=== PATIENT | male | born 1945 | race Caucasian/White ===

== ENCOUNTER 2019-08-07 16:06 | Inpatient (IN) | payer MEDICARE, OTHER ==
[~2019-08-07] VITALS: Ht 177.8 cm; Wt 101.2 kg
[~2019-08-07 16:06] MED LIST: AMLO10TA4 PO; ATEN-171 PO; ATOR10TA PO; LEVO100T PO; LORA-259 PO; MULT1CAP34 PO; SAW/1TAB2 PO
--- NOTE | 2019-08-07 16:10 | NUR ---
PATIENT BIB [facility] FROM [facility] FOR FLU-LIKE SX,COUGH/CONGESTION,BODY ACHE. PATIENT A/O X 4. NO ACUTE DISTRESS. PATIENT CONNECTED TO MONITOR. WILL CONTINUE TO MONITOR ACCORDINGLY
[2019-08-07 16:57] LABS: BASOPHILS % (AUTO) 0.7 % (0.0-2.0); HEMATOCRIT 42 % (39-51); HEMOGLOBIN 14.3 g/dL (13.5-17.5); LYMPHOCYTES # (AUTO) 1.4 /CMM (0.8-4.8); LYMPHOCYTES % (AUTO) 28.9 % (20.0-44.0); MEAN CORPUSCULAR HGB CONC 34 g/dl (31.0-36.0); MEAN CORPUSCULAR VOLUME 97 fL (80-96); MONOCYTES # (AUTO) 0.6 /CMM (0.1-1.30); MONOCYTES % (AUTO) 12.9 % (2.0-12.0); NEUTROPHILS # (AUTO) 2.5 /CMM (1.8-8.9); NEUTROPHILS % (AUTO) 51.5 % (43.0-81.0); PLATELET COUNT (AUTO) 177 /CMM (150-450); RED BLOOD CELL COUNT(AUTO) 4.31 MIL/uL (4.5-6.0); WHITE BLOOD COUNT (AUTO) 4.9 K/uL (4.3-11.0)
[2019-08-07 17:16] LABS: ALANINE AMINOTRANSFERASE 25 U/L (12-78); ALBUMIN 2.8 g/dL (3.4-5.0); ALKALINE PHOSPHATASE 51 U/L (46-116); ASPARTATE AMINOTRANSFERASE 25 U/L (15-37); B-TYPE NATRIURETIC PEPTIDE 116 PG/ML (0-125); BILIRUBIN,DIRECT 0.1 mg/dL (0.0-0.2); BILIRUBIN,TOTAL 0.3 mg/dL (0.2-1.0); CALCIUM, SERUM 8.5 mg/dL (8.5-10.1); CARBON DIOXIDE 29 mmol/L (21-32); CHLORIDE 107 mmol/L (98-107); GLUCOSE 96 mg/dL (74-106); POTASSIUM 4.4 mmol/L (3.5-5.1); SODIUM SERUM 141 mmol/L (136-145); TOTAL PROTEIN, SERUM 6.5 g/dL (6.4-8.2); UREA NITROGEN, BLOOD 15 mg/dL (7-18)
[2019-08-07] MEDS ORDERED: MAGNESIUM HYDROXIDE 30 ML UDC PO PRN (18:30)
[2019-08-07] MEDS ORDERED: ACETAMINOPHEN 325 MG TABLET PO PRN (18:30)
[2019-08-07] MEDS ORDERED: HYDROCODONE/APAP 5/325MG 1 EACH TABLET PO PRN (18:30)
[2019-08-07] MEDS ORDERED: ZOLPIDEM TARTRATE 5 MG TABLET PO PRN (18:30)
[2019-08-07] MEDS ORDERED: MAG HYDROX/AL HYDROX/SIMETH 30 ML UDC PO PRN (18:30)
[2019-08-07] MEDS ORDERED: AZITHROMYCIN 500 MG in IV D5W 250 ML IV ONE (18:30)
[2019-08-07] MEDS ORDERED: ONDANSETRON HCL/PF 4 MG/2 ML VIAL IVP PRN (18:30)
[2019-08-07] MEDS ORDERED: CEFTRIAXONE 1 G in IV D5W 50 ML IV ONE (18:30)
[2019-08-07] MEDS ORDERED: Z GUARD REMEDY 2 OZ OINT TP PRN (18:30)
--- NOTE | 2019-08-07 18:40 | NUR ---
CALLED NURSING SUP FOR MED SURG BED.
--- NOTE | 2019-08-07 18:49 | NUR ---
PATIENT RESTING COMFORTABLY ON BED. NO ACUTE DISTRESS. WILL CONTINUE TO MONITIOR
--- NOTE | 2019-08-07 20:00 | NUR ---
NURSING SUP GAVE M/S BED 308-2.
--- NOTE | 2019-08-07 20:12 | NUR ---
REPORT GIVEN TO NILESH ON THIRD FLOOR FOR NAKIA
[2019-08-07 21:07] VITALS: BP 128/67
[2019-08-07] MEDS ORDERED: FEE PK DOSING 1 MIN EA MC ONE (21:17)
--- NOTE | 2019-08-07 21:17 | NUR ---
PT WAS TRANSFERRED TO [facility] IN STABLE CONDITION.
[2019-08-07] MEDS ORDERED: VANCOMYCIN 1 GM VIAL ONE ×2 (21:59→22:01)
[2019-08-07] MEDS ORDERED: VANCOMYCIN HCL 1.25 GM in IV D5W 260 ML IV ONE (22:00)
--- NOTE | 2019-08-07 22:00 | NUR ---
IV VANCOMYCIN OBTAINED WITH CHARGE NURSE, WAS ABLE TO FIND THE MEDICATION DOSE AT A LATER TIME JUST AFTER IT WAS ADMINISTERED.
--- NOTE | 2019-08-07 22:06 | NUR ---
MS/RN NOTES IV SITE ON LEFT AC GAUGE 18
--- NOTE | 2019-08-07 22:57 | NUR ---
MS/RN NEW ADMISSION NOTES RECEIVED PATIENT ON A GURNEY ACCOMPANIED BY ER NURSE, PATIENT ALERT, ORIENTED X2, CAN VERBALIZE NEEDS, AND FOLLOW SIMPLE COMMANDS, COOPERATIVE TO CARE. RESPIRATIONS EVEN AND UNLABORED, REPORTED USES WHEELCHAIR AND LIVE IN A SENIOR LIVING, BROTHER IS IN CHARGE PRIMARY DECISION MAKER, WITH POLST OBTAINED FROM SNF DNR WITH SELECTIVE TREATMENT, TO INFORM MD AND FOLLOW UP. PATIENT CHEST XRAY CONFIRMATION FOR PNA. SKIN INTACT , BELONGINGS RECEIVED WITH ONLY CLOTHING AND SHOES. DO NOT SERA EYE GLASS BUT HAS PARTIAL DENTURES. IV ANTIBIOTIC THERAPY ORDER. ADMITING MD SHELL SAWANT. WILL MONITOR, ROOM ORIENTATION PROVIDED, BROTHER CONTACTED MADE AWARE REGARDING PATIENT. BED LOCKED, CALL LIGHTS WITHIN REACH, PROVIDED FLUIDS AND SNACKS.
[2019-08-08] MEDS: PIPERACILLIN /TAZOBACTAM 3.375 G in IV D5W 50 ML IV SCH ×5 (03:15→23:20)
[2019-08-08] MEDS: IV NS 0.9% 1,000 ML IV PRN ×2 (03:42→21:18)
--- NOTE | 2019-08-08 06:46 | NUR ---
MS/RN NOTES PATIENT AWAKE, ABLE TO SLEEP FEW HOURS, WATCHING TV AND IV ANTIBIOTIC TO BE INFUSED. KEPT COMFORTABLE. BED LOCKED, CALL LIGHTS WITHIN REACH, RESPIRATIONS EVEN AND UNLABORED, WILL ENDORSE TO AM RN FOR NAKIA.IV ANTIBIOTIC ZOSYN TO BE ADMINISTERED AT A LATER TIME FOR PROPER DOSING WILL FOLLOW UP WITH AM RN .
[2019-08-08 06:48] LABS: THYROID STIMULATING HORMONE 4.853 uIU/mL (0.358-3.74)
[2019-08-08 06:59] LABS: CALCIUM, SERUM 8.2 mg/dL (8.5-10.1); CREATININE 0.8 mg/dL (0.6-1.3); MAGNESIUM 1.8 mg/dL (1.8-2.4); PHOSPHORUS 3.4 mg/dL (2.5-4.9); POTASSIUM 4.4 mmol/L (3.5-5.1)
[2019-08-08 07:04] LABS: BASOPHILS % (AUTO) 0.3 % (0.0-2.0); EOSINOPHILS % (AUTO) 11.8 % (0.0-6.0); HEMATOCRIT 41 % (39-51); HEMOGLOBIN 13.7 g/dL (13.5-17.5); LYMPHOCYTES # (AUTO) 1.3 /CMM (0.8-4.8); LYMPHOCYTES % (AUTO) 27.2 % (20.0-44.0); MEAN CORPUSCULAR HGB CONC 34 g/dl (31.0-36.0); MEAN CORPUSCULAR VOLUME 97 fL (80-96); MONOCYTES # (AUTO) 0.5 /CMM (0.1-1.30); MONOCYTES % (AUTO) 9.8 % (2.0-12.0); NEUTROPHILS # (AUTO) 2.4 /CMM (1.8-8.9); NEUTROPHILS % (AUTO) 50.9 % (43.0-81.0); PLATELET COUNT (AUTO) 157 /CMM (150-450); RED BLOOD CELL COUNT(AUTO) 4.23 MIL/uL (4.5-6.0); WHITE BLOOD COUNT (AUTO) 4.7 K/uL (4.3-11.0)
--- NOTE | 2019-08-08 07:23 | NUR ---
M/S RN NOTES PATIENT RECEIVED RESTING IN BED. APPEARS TO BE IN NO DISTRESS AND NO CURRENT COMPLAINTS OF PAIN OR N/V. SAFETY PRECAUTIONS ON WITH BED IN LOWEST POSITION, RAILS UP x2, AND CALL LIGHT WITHIN REACH. HAS A L AC#18 IV INFUSING WITH ZOSYN CURRENTLY. WILL CONTINUE TO MONITOR.
[2019-08-08] MEDS ORDERED: LEVOTHYROXINE SODIUM 100 MCG TABLET PO SCH (07:30)
[2019-08-08 08:00] VITALS: BP 127/70
[2019-08-08] MEDS: AMLODIPINE BESYLATE 10 MG TABLET PO SCH (08:45)
[2019-08-08] MEDS: MULTIVITAMINS,THERAGRAN 1 UDTAB TABLET PO SCH (08:45)
[2019-08-08] MEDS: ATENOLOL 50 MG TABLET PO SCH (08:45)
[2019-08-08] MEDS: ATORVASTATIN 10 MG TABLET PO SCH (08:46)
[2019-08-08] MEDS ORDERED: VANCOMYCIN HCL 1.25 GM in IV D5W 260 ML IV SCH (10:00)
[2019-08-08] MEDS ORDERED: DIVA500T2 PO (14:31)
--- NOTE | 2019-08-08 14:34 | NUR ---
M/S RN NOTES MEDICATIONS FROM FACILITY ENTERED INTO EMAR. VERIFIED BY DR. GOFF AND FAXED TO PHARMACY.
[2019-08-08] MEDS ORDERED: BENZ2AMP3 PO (14:42)
[2019-08-08] MEDS ORDERED: BISA10SU61 RC (14:42)
[2019-08-08] MEDS ORDERED: MAGN400O6 PO (14:42)
[2019-08-08] MEDS ORDERED: NA P133E RC (14:42)
[2019-08-08] MEDS ORDERED: PALI117D IM (14:42)
[2019-08-08] MEDS ORDERED: DOCU-141 PO (14:42)
[2019-08-08] MEDS ORDERED: HALO5TAB8 PO (14:42)
[2019-08-08] MEDS ORDERED: NA PHOS,M-B/NA PHOS,DI-BA 1 EA ENEMA RC PRN (15:30)
[2019-08-08] MEDS ORDERED: BISACODYL SUPP (10 MG) 10 MG/SUPP.RECT SUPP.RECT RC PRN (15:30)
[2019-08-08 16:00] VITALS: BP 107/65
[2019-08-08] MEDS: HALOPERIDOL 5 MG TABLET PO SCH (17:06)
[2019-08-08] MEDS: BENZTROPINE MESYLATE (1 MG) 1 MG TABLET PO SCH (17:06)
[2019-08-08] MEDS: DIVALPROEX SODIUM 500 MG TABLET.DR PO SCH (17:06)
--- NOTE | 2019-08-08 18:04 | NUR ---
M/S RN NOTES PATIENT IS CURRENTLY RESTING IN BED A/O x2, ABLE TO MAKE NEEDS KNOWN. ABLE TO FOLLOW COMMANDS, SPEAKS GREEK BUT A LITTLE MUFFLED. APPEARS TO BE IN NO DISTRESS AND NO CURRENT COMPLAINTS OF PAIN. IV INFUSING ON HIS LEFT AC #18 . SAFETY PRECAUTIONS ON WITH BED IN LOWEST POSITION, BED RAILS UP x2, AND CALL LIGHT WITHIN REACH. WILL CONTINUE TO MONITOR AND ENDORSE TO ONCOMING SHIFT ABOUT NAKIA.
--- NOTE | 2019-08-08 19:53 | NUR ---
MS RN OPENING NOTE RECEIVED PATIENT IN BED. A//O X2. TOLERATING ROOM AIR. RESPIRATION ARE EVEN AND UNLABORED. NO SOB NOTED. DENIES PAIN AT THIS TIME. IN NO APPARENT DISTRESS. IV ACCESS IN LAC#18 RUNNING NS@75ML/HR. BED IS LOW AND LOCKED, HOB ELEVATED 30 DEGREES, SIDE RAILS UP X2, BED ALARM ON. CALL LIGHT WITHIN REACH. WILL CONTINUE TO MONITOR.
[2019-08-08 20:00] VITALS: BP 123/82
--- NOTE | 2019-08-08 20:43 | NUR ---
MS RN NOTE PATIENT 1999 VITALS SHOW 91% O2 SAT. ASKED PATIENT IF HE WAS SOB, HE STATED YES. INFORMED HIM IM GOING TO PLACE HIM ON OXYGEN. PATIENT WAS PLACED ON OXYGEN 2L/MIN VIA NASAL CANNULA, NEW IO2 SAT IS 94%. WILL CONTINUE TO MONITOR.
[2019-08-08 20:45] VITALS: BP 123/82
[2019-08-08] MEDS: VANCOMYCIN 1.25 GM in IV D5W 250 ML IV SCH (21:18)
--- NOTE | 2019-08-09 04:26 | NUR ---
MS RN NOTE STOPPED IVF D/T PATIENT SOUNDING CONGESTED. WILL CONTINUE TO MONITOR.
[2019-08-09] MEDS: PIPERACILLIN /TAZOBACTAM 3.375 G in IV D5W 50 ML IV SCH ×3 (05:05→17:44)
--- NOTE | 2019-08-09 06:26 | NUR ---
MS RN CLOSING NOTE PATIENT IN BED. A/O X2. ON OXYGEN AT 2L/MIN VIA NASAL CANULA. RESPIRATION ARE EVEN AND UNLABORED. NO SOB NOTED. NO C/O PAIN. NO DISTRESS NOTED. IV ACCESS MAINTAINED IN LAC#18 RUNNING NS@75ML/HR. BED IS LOW AND LOCKED, HOB ELEVATED 15 DEGREES, SIDE RAILS UP X2, BED ALARM ON, TURNED AND REPOSITION Q2HR.. CALL LIGHT WITHIN REACH. WILL ENDORSE TO NEXT SHIFT
--- NOTE | 2019-08-09 07:35 | NUR ---
MS RN OPENING NOTES RECEIVED PT IN BED, ASLEEP, EASILY AROUSED, A/O X3. PT TOLERATING RA, WITH NO RESPIRATORY DISTRESS NOTED. PT DENIES ANY PAIN OR DISCOMFORT AT THIS TIME. PT DENIES ANY CONCERNS OR QUESTIONS AT THE MOMENT WELL. IVF NS AT 75ML/HR TO LAC G18, INTACT AND FLUID INFUSING WELL. PT KEPT COMFORTABLE. CALL LIGHT KEPT WITHIN REACH. PT'S BED IN LOWEST, LOCKED POSITION WITH SR X3. WILL CONTINUE PLAN OF CARE.
[2019-08-09 08:00] VITALS: BP 107/66
[2019-08-09] MEDS: BENZTROPINE MESYLATE (1 MG) 1 MG TABLET PO SCH ×2 (08:26→16:38)
[2019-08-09] MEDS: LEVOTHYROXINE SODIUM 100 MCG TABLET PO SCH (08:26)
[2019-08-09] MEDS: MULTIVITAMINS,THERAGRAN 1 UDTAB TABLET PO SCH (08:26)
[2019-08-09] MEDS: DIVALPROEX SODIUM 500 MG TABLET.DR PO SCH ×3 (08:26→16:38)
[2019-08-09] MEDS: HALOPERIDOL 5 MG TABLET PO SCH ×2 (08:26→16:38)
[2019-08-09] MEDS: ATORVASTATIN 10 MG TABLET PO SCH (08:27)
[2019-08-09] MEDS: ATENOLOL 50 MG TABLET PO SCH (08:34)
[2019-08-09] MEDS: AMLODIPINE BESYLATE 10 MG TABLET PO SCH (08:34)
[2019-08-09] MEDS: DOCUSATE SODIUM 100 MG CAPSULE PO SCH (08:37)
[2019-08-09] MEDS ORDERED: MAGNESIUM HYDROXIDE 30 ML UDC PO SCH (09:00)
[2019-08-09] MEDS: VANCOMYCIN 1.25 GM in IV D5W 250 ML IV SCH ×2 (10:01→22:04)
[2019-08-09 16:00] VITALS: BP 99/59
--- NOTE | 2019-08-09 18:43 | NUR ---
MS RN CLOSING NOTES PT IN BED, ASLEEP, EASILY AROUSED, A/O X3. PT TOLERATING RA, WITH NO RESPIRATORY DISTRESS NOTED. PT DENIES ANY PAIN OR DISCOMFORT AT THIS TIME. PT DENIES ANY CONCERNS OR QUESTIONS AT THE MOMENT WELL. IVF NS AT 75ML/HR TO LAC G18, INTACT AND FLUID INFUSING WELL. ALL NEEDS AND CARE ATTENDED. PT KEPT COMFORTABLE. CALL LIGHT KEPT WITHIN REACH. PT'S BED IN LOWEST, LOCKED POSITION WITH SR X3. WILL ENDORSE TO INCOMING NIGHT NURSE
--- NOTE | 2019-08-09 19:15 | NUR ---
MS RN PM OPENING NOTE BEDSIDE REPORT RECIEVED FROM CRISTINA MURDOCK. PT IN BED, EASILY AROUSED BY VOICE. PT TOLERATING RA, WITH NO RESPIRATORY DISTRESS NOTED. PT DENIES PAIN OR DISCOMFORT AT THIS TIME. IVF NS AT 75ML/HR TO LAC G18, INTACT AND FLUID INFUSING WITH NO S/S OF COMPLICATIONS. CALL LIGHT WITHIN REACH. BED IN LOWEST, LOCKED POSITION WITH SR X3. WILL CONT TO MONITOR.
[2019-08-09 20:00] VITALS: BP 127/69
[2019-08-10] MEDS: PIPERACILLIN /TAZOBACTAM 3.375 G in IV D5W 50 ML IV SCH ×3 (00:13→12:48)
--- NOTE | 2019-08-10 02:24 | NUR ---
code status order. patient was dnr/dni but no official order from md written. reached out to candice moralez for order polst on file for dnr/dni. patient alert and oriented x3 at this time and asked about if he wanted cpr pt states "No i dont want." kirt informed new orders recieved and verified with geovanny charge nurse.
[2019-08-10] MEDS: IV NS 0.9% 1,000 ML IV PRN (02:25)
[2019-08-10] MEDS: LEVOTHYROXINE SODIUM 100 MCG TABLET PO SCH (06:20)
--- NOTE | 2019-08-10 06:56 | NUR ---
MS RN PM CLOSING NOTE PT IN BED, EASILY AROUSED BY VOICE. PT TOLERATING RA, PT DENIES SOB BUT HAS MILDLY LABORED BREATHING. PATIENT HAS BEEN COUGHIN UP PHLEGM THICK DARK GREEN YELLOW. PT DENIES PAIN OR DISCOMFORT AT THIS TIME. IVF NS AT 75ML/HR TO LAC G18, INTACT AND FLUID INFUSING WITH NO S/S OF COMPLICATIONS. CALL LIGHT WITHIN REACH. BED IN LOWEST, LOCKED POSITION WITH SR X3. WILL ENDORSE TO AM SHIFT.
[2019-08-10 07:26] LABS: CALCIUM, SERUM 8.5 mg/dL (8.5-10.1); CREATININE 1.1 mg/dL (0.6-1.3); POTASSIUM 4.2 mmol/L (3.5-5.1)
[2019-08-10 08:00] VITALS: BP 142/69
[2019-08-10] MEDS: DIVALPROEX SODIUM 500 MG TABLET.DR PO SCH ×2 (09:29→14:14)
[2019-08-10] MEDS: DOCUSATE SODIUM 100 MG CAPSULE PO SCH (09:29)
[2019-08-10] MEDS: MULTIVITAMINS,THERAGRAN 1 UDTAB TABLET PO SCH (09:29)
[2019-08-10] MEDS: BENZTROPINE MESYLATE (1 MG) 1 MG TABLET PO SCH (09:29)
[2019-08-10] MEDS: ATORVASTATIN 10 MG TABLET PO SCH (09:29)
[2019-08-10] MEDS: HALOPERIDOL 5 MG TABLET PO SCH (09:30)
[2019-08-10] MEDS: AMLODIPINE BESYLATE 10 MG TABLET PO SCH (09:30)
[2019-08-10 09:31] VITALS: BP 142/69
[2019-08-10] MEDS: ATENOLOL 50 MG TABLET PO SCH (09:31)
[2019-08-10] MEDS ORDERED: PIPE3.379 IV (09:42)
--- NOTE | 2019-08-10 09:55 | NUR ---
IV LEAKING AND REMOVED. RESTART IN RT. HAND #22 ANGIO.TOLERATED WELL.
[2019-08-10] MEDS: VANCOMYCIN 1.25 GM in IV D5W 250 ML IV SCH (10:28)
--- NOTE | 2019-08-10 15:50 | NUR ---
drivers here given report .report called as well to facility-spoke to ludivina.all belongings sent with pt. hep lock left in as pt. on ongoing antibiotic.transported via amb. to facility.
[2019-08-18] MEDS ORDERED: PALIPERIDONE PALMITATE 156 MG INJ SCH (09:00)
== END 2019-08-10 16:00 | DRG 193 ==
LOC: ER 16:08 → MED 20:51
PROVIDERS: ATTEND Internal Medicine
DX: J15.9 Unspecified bacterial pneumonia (principal); G93.41 Metabolic encephalopathy; J96.01 Acute respiratory failure with hypoxia; F20.0 Paranoid schizophrenia; I10 Essential (primary) hypertension; E03.9 Hypothyroidism, unspecified; D64.9 Anemia, unspecified; E78.5 Hyperlipidemia, unspecified; F03.90 Unspecified dementia, unspecified severity, without behavioral disturbance, psychotic disturbance, mood disturbance, and anxiety; F31.9 Bipolar disorder, unspecified
CPT/HCPCS: 36415; 71045-TC; 80048-TC; 80061-TC; 80076-TC; 80202-TC; 83605-TC; 83735-TC; 83880; 84100-TC; 84443-TC; 84484-TC; 85025-TC; 85730-TC; 87040-TC; 87081-TC; 94799-TC; 97110-TC; 97116-TC; 97530-TC; G0378; J0456; J0696; J2543; J3370; J7030; J7060

== ENCOUNTER 2020-10-22 20:22 | Inpatient (IN) | payer MEDICARE, OTHER ==
[~2020-10-22] VITALS: Ht 185.4 cm; Wt 94.8 kg
[~2020-10-22 20:22] MED LIST changes: -ATEN-171 PO; +BENZ2AMP3 PO; +BISA10SU61 RC; +DIVA500T2 PO; +DOCU-141 PO; +HALO5TAB8 PO; -LORA-259 PO; +MAGN400O6 PO; -MULT1CAP34 PO; +NA P133E RC; +PALI117D IM; +PIPE3.379 IV; -SAW/1TAB2 PO
--- NOTE | 2020-10-22 20:25 | NUR ---
PT BIBPA FROM [facility] C/O FEVER AND GEN WEAKNESS X3 HRS. PT WAS GIVEN TYLENOL @1900 FOR 101 FEVER. UPON ASSESSMENT PT 98.3. PT AAOX2. PT 93% RA BREATHING EVENLY AND UNLABORED. PLACED ON 2L VIA NC 95%. PT DENIES CP. PT PLACED ON MONITOR AND POX. MADE COMFORTABLE WITH BLANKET AND CALL LIGHT WITHIN REACH. BLOOD AND BLOOD CULUTRES OBTAINED AND SENT TO THE LAB. 20G LFT AC. WILL CONTINUE TO MONITOR.
--- NOTE | 2020-10-22 20:27 | NUR ---
SPOKE WITH CLAUDE FROM [facility]. PER CLAUDE, REC'D POSITIVE COVID TEST RESULTS TODAY
--- NOTE | 2020-10-22 20:30 | NUR ---
RT AT BEDSIDE
[2020-10-22 20:54] LABS: BASOPHILS # (AUTO) 0.1 /CMM (0.0-0.2); BASOPHILS % (AUTO) 2.9 % (0.0-2.0); EOSINOPHILS % (AUTO) 0.2 % (0.0-6.0); HEMATOCRIT 41 % (39-51); LYMPHOCYTES # (AUTO) 0.4 /CMM (0.8-4.8); LYMPHOCYTES % (AUTO) 9.1 % (20.0-44.0); MEAN CORPUSCULAR HGB CONC 34 g/dl (31.0-36.0); MEAN CORPUSCULAR VOLUME 97 fL (80-96); MONOCYTES # (AUTO) 0.6 /CMM (0.1-1.30); MONOCYTES % (AUTO) 13.5 % (2.0-12.0); NEUTROPHILS # (AUTO) 3.3 /CMM (1.8-8.9); NEUTROPHILS % (AUTO) 74.3 % (43.0-81.0); PLATELET COUNT (AUTO) 159 /CMM (150-450); RED BLOOD CELL COUNT(AUTO) 4.22 MIL/uL (4.5-6.0); WHITE BLOOD COUNT (AUTO) 4.5 K/uL (4.3-11.0)
[2020-10-22 20:56] LABS: ABG BASE EXCESS -1.1 mmol/L; ABG OXYGEN SATURATION 95.6 % (92.0-98.5); ABG PH 7.428 (7.350-7.450); ABG PO2 76.2 mmHg (75.0-100.0); AaDO2 82.1 mmHg; COHb 0.3 % (0.5-1.5); MetHb 0.5 % (0.0-1.5); O2Hb 94.8 % (94.0-97.0); SITE, ABG Right Radial; VENT MODE, BG 2LNC
--- NOTE | 2020-10-22 20:59 | NUR ---
CALLED [facility] PAGED DR SHAH FOR ADMISSION
--- NOTE | 2020-10-22 21:05 | NUR ---
URINE SENT TO LAB
[2020-10-22] MEDS ORDERED: LIDOCAINE 2% JEL UROJET 10 ML MM ONE (21:14)
[2020-10-22 21:16] LABS: ALANINE AMINOTRANSFERASE 34 U/L (12-78); ALBUMIN 2.9 g/dL (3.4-5.0); ALKALINE PHOSPHATASE 72 U/L (46-116); ASPARTATE AMINOTRANSFERASE 76 U/L (15-37); B-TYPE NATRIURETIC PEPTIDE 219 PG/ML (0-125); BILIRUBIN,TOTAL 0.2 mg/dL (0.2-1.0); CALCIUM, SERUM 8.5 mg/dL (8.5-10.1); CARBON DIOXIDE 26 mmol/L (21-32); CHLORIDE 105 mmol/L (98-107); CREATININE 1.2 mg/dL (0.6-1.3); GLUCOSE 115 mg/dL (74-106); SODIUM SERUM 139 mmol/L (136-145); TOTAL PROTEIN, SERUM 6.6 g/dL (6.4-8.2); UREA NITROGEN, BLOOD 15 mg/dL (7-18)
[2020-10-22 21:29] LABS: BILIRUBIN,URINE Negative (NEGATIVE); COLOR,URINE YELLOW (YELLOW); LEUKOCYTE ESTERASE ,URINE Negative (NEGATIVE); NITRITE, URINE Negative (NEGATIVE); PH,URINE 5.5 (5.0-8.0); PROTEIN,URINE Negative (NEGATIVE); UGLUCOSE Negative (NEGATIVE)
[2020-10-22 21:52] LABS: BACTERIA,URINE Rare /HPF (None Seen); SQUAMOUS EPITHELIAL CELL,UR Few /HPF (None Seen); WBC,URINE NONE SEEN /HPF (0-3)
[2020-10-22 21:58] LABS: CREATINE KINASE, TOTAL 1957 U/L (39-308); FERRITIN 94 ng/mL (8-388)
[2020-10-22 21:59] LABS: C-REACTIVE PROTEIN 1.9 mg/dL (0.0-0.9)
[2020-10-22 22:03] LABS: D-DIMER 0.25 mg/L(FEU (0.17-0.50)
--- NOTE | 2020-10-22 22:29 | NUR ---
INFLUENZA SWAB SENT TO LAB
[2020-10-22] MEDS ORDERED: NA PHOS,M-B/NA PHOS,DI-BA 1 EA ENEMA RC PRN (23:00)
[2020-10-22] MEDS ORDERED: BISACODYL SUPP (10 MG) 10 MG/SUPP.RECT SUPP.RECT RC PRN (23:00)
[2020-10-22] MEDS ORDERED: Z GUARD REMEDY 2 OZ OINT TP PRN (23:00)
[2020-10-22] MEDS ORDERED: ACETAMINOPHEN 325 MG TABLET PO PRN (23:00)
[2020-10-22] MEDS ORDERED: MORPHINE SULFATE INJ 2 MG/ML DISP.SYRIN IV PRN (23:00)
[2020-10-22] MEDS: ENOXAPARIN SODIUM 40 MG/0.4 ML DISP.SYRIN SQ SCH (23:30)
[2020-10-22] MEDS: AZITHROMYCIN 500 MG in IV D5W 250 ML IV SCH (23:30)
[2020-10-22] MEDS ORDERED: ENOXAPARIN SODIUM 40 MG/0.4 ML DISP.SYRIN SQ ONE (23:33)
[2020-10-22] MEDS ORDERED: AZITHROMYCIN 500 MG VIAL ONE (23:33)
--- NOTE | 2020-10-23 00:15 | NUR ---
PT REPOSITIONED AND CHANGED
[2020-10-23 06:01] LABS: BASOPHILS % (AUTO) 0.4 % (0.0-2.0); EOSINOPHILS % (AUTO) 0.1 % (0.0-6.0); HEMATOCRIT 42 % (39-51); HEMOGLOBIN 14.2 g/dL (13.5-17.5); LYMPHOCYTES # (AUTO) 0.7 /CMM (0.8-4.8); LYMPHOCYTES % (AUTO) 12.9 % (20.0-44.0); MEAN CORPUSCULAR HGB CONC 34 g/dl (31.0-36.0); MEAN CORPUSCULAR VOLUME 98 fL (80-96); MONOCYTES % (AUTO) 19.3 % (2.0-12.0); NEUTROPHILS # (AUTO) 3.6 /CMM (1.8-8.9); NEUTROPHILS % (AUTO) 67.3 % (43.0-81.0); PLATELET COUNT (AUTO) 160 /CMM (150-450); RED BLOOD CELL COUNT(AUTO) 4.32 MIL/uL (4.5-6.0); WHITE BLOOD COUNT (AUTO) 5.4 K/uL (4.3-11.0)
--- NOTE | 2020-10-23 07:27 | NUR ---
GAVE REPORT TO COLLETTE STALLWORTH FOR NAKIA
[2020-10-23 07:34] LABS: ALANINE AMINOTRANSFERASE 35 U/L (12-78); ALBUMIN 2.9 g/dL (3.4-5.0); ALKALINE PHOSPHATASE 71 U/L (46-116); ASPARTATE AMINOTRANSFERASE 85 U/L (15-37); BILIRUBIN,TOTAL 0.2 mg/dL (0.2-1.0); CALCIUM, SERUM 8.9 mg/dL (8.5-10.1); CARBON DIOXIDE 25 mmol/L (21-32); CHLORIDE 104 mmol/L (98-107); CREATININE 0.8 mg/dL (0.6-1.3); GLUCOSE 95 mg/dL (74-106); MAGNESIUM 1.9 mg/dL (1.8-2.4); PHOSPHORUS 3.9 mg/dL (2.5-4.9); POTASSIUM 4.4 mmol/L (3.5-5.1); SODIUM SERUM 140 mmol/L (136-145); TOTAL PROTEIN, SERUM 6.7 g/dL (6.4-8.2); UREA NITROGEN, BLOOD 13 mg/dL (7-18)
[2020-10-23 07:58] LABS: CHOLESTEROL 137 mg/dL (<200); CREATINE KINASE, TOTAL 1813 U/L (39-308); FERRITIN 108 ng/mL (8-388); HDL CHOLESTEROL 48 mg/dL (40-60); LDL 80 mg/dL (0-99); THYROID STIMULATING HORMONE 3.453 uIU/mL (0.358-3.74); TRIGLYCERIDES 52 mg/dL (30-150)
[2020-10-23] MEDS ORDERED: HALOPERIDOL 5 MG TABLET ONE ×2 (08:19→16:58)
[2020-10-23] MEDS ORDERED: AMLODIPINE BESYLATE 5 MG TABLET ONE (08:19)
[2020-10-23] MEDS ORDERED: DIVALPROEX SODIUM 250 MG TABLET.DR PO ONE (08:19)
[2020-10-23] MEDS ORDERED: DOCUSATE SODIUM LIQ 100 MG/10 ML UDC ONE (08:19)
[2020-10-23] MEDS ORDERED: MAGNESIUM HYDROXIDE 30 ML UDC ONE (08:19)
[2020-10-23] MEDS ORDERED: PANTOPRAZOLE 40 MG TABLET.DR PO ONE (08:20)
[2020-10-23] MEDS: LEVOTHYROXINE SODIUM 75 MCG TABLET PO SCH (08:30)
[2020-10-23] MEDS: PANTOPRAZOLE 40 MG TABLET.DR PO SCH (08:30)
[2020-10-23] MEDS: DEXAMETHASONE SOD PHOSPHATE 10 MG/ML VIAL IV SCH (08:37)
[2020-10-23] MEDS: DOCUSATE SODIUM 100 MG CAPSULE PO SCH (08:37)
[2020-10-23] MEDS: HALOPERIDOL 5 MG TABLET PO SCH ×2 (08:37→17:09)
[2020-10-23] MEDS: DIVALPROEX SODIUM 500 MG TABLET.DR PO SCH ×3 (08:37→17:09)
[2020-10-23] MEDS: MAGNESIUM HYDROXIDE 30 ML UDC PO SCH (08:37)
[2020-10-23] MEDS: CHOLECALCIFEROL 1,000 UNIT TABLET (VIT D3) PO SCH (08:44)
[2020-10-23 08:59] LABS: VALPROIC ACID 51 ug/mL (50-100)
[2020-10-23] MEDS ORDERED: AMLODIPINE BESYLATE 10 MG TABLET PO SCH (09:00)
[2020-10-23] MEDS ORDERED: CHOLECALCIFEROL (VITAMIN D 3) 400 UNIT TABLET PO SCH (09:00)
--- NOTE | 2020-10-23 10:00 | NUR ---
adl care provided. pt was cleaned. diapers changed. linens changed. turned and repositioned for comoftr.
[2020-10-23 10:56] LABS: LYMPHOCYTES % (MANUAL) 11 % (16-48); MONOCYTES % (MANUAL) 20 % (0-11.0); NEUTROPHILS % (MANUAL) 69 (42-76)
[2020-10-23] MEDS ORDERED: DIVALPROEX SODIUM 500 MG TABLET.DR PO ONE ×2 (14:24→16:58)
--- NOTE | 2020-10-23 17:00 | NUR ---
pt voided on his diapers once again. cleaned, diapers changed. turned and repositiojned for comfort.
--- NOTE | 2020-10-23 19:15 | NUR ---
rec'd report from COLLETTE Lira for adrian
[2020-10-23] MEDS ORDERED: TEMAZEPAM 15 MG CAPSULE PO PRN (20:30)
[2020-10-23] MEDS ORDERED: TEMAZEPAM 15 MG CAPSULE ONE (21:42)
[2020-10-23] MEDS ORDERED: ENOXAPARIN SODIUM 40 MG/0.4 ML DISP.SYRIN SQ ONE (21:44)
[2020-10-23] MEDS: ATORVASTATIN 10 MG TABLET PO SCH (21:50)
[2020-10-23] MEDS ORDERED: ATORVASTATIN 10 MG TABLET ONE (21:50)
[2020-10-23] MEDS: ENOXAPARIN SODIUM 40 MG/0.4 ML DISP.SYRIN SQ SCH (21:50)
--- NOTE | 2020-10-23 22:00 | NUR ---
pt changed and repositioned
[2020-10-23] MEDS: AZITHROMYCIN 500 MG in IV D5W 250 ML IV SCH (22:45)
--- NOTE | 2020-10-24 00:15 | NUR ---
Pt sleeping comfortably, easily aroused.
[2020-10-24] MEDS: IV NS 0.9% 1,000 ML IV PRN ×2 (05:30→16:30)
[2020-10-24 05:44] LABS: BASOPHILS % (AUTO) 0.3 % (0.0-2.0); HEMATOCRIT 45 % (39-51); HEMOGLOBIN 14.9 g/dL (13.5-17.5); LYMPHOCYTES # (AUTO) 1.1 /CMM (0.8-4.8); LYMPHOCYTES % (AUTO) 22.8 % (20.0-44.0); MEAN CORPUSCULAR HGB CONC 33 g/dl (31.0-36.0); MEAN CORPUSCULAR VOLUME 99 fL (80-96); MONOCYTES # (AUTO) 0.9 /CMM (0.1-1.30); MONOCYTES % (AUTO) 18.8 % (2.0-12.0); NEUTROPHILS # (AUTO) 2.9 /CMM (1.8-8.9); NEUTROPHILS % (AUTO) 58.1 % (43.0-81.0); PLATELET COUNT (AUTO) 136 /CMM (150-450); RED BLOOD CELL COUNT(AUTO) 4.53 MIL/uL (4.5-6.0)
--- NOTE | 2020-10-24 07:19 | NUR ---
GAVE REPORT TO MCKAYLA GREENE RN FOR NAKIA
[2020-10-24 07:35] LABS: CALCIUM, SERUM 9.2 mg/dL (8.5-10.1); CREATININE 0.8 mg/dL (0.6-1.3); MAGNESIUM 2.2 mg/dL (1.8-2.4); POTASSIUM 4.6 mmol/L (3.5-5.1)
[2020-10-24] MEDS ORDERED: PANTOPRAZOLE 40 MG TABLET.DR PO ONE (07:37)
[2020-10-24] MEDS: LEVOTHYROXINE SODIUM 75 MCG TABLET PO SCH (07:40)
[2020-10-24] MEDS: PANTOPRAZOLE 40 MG TABLET.DR PO SCH (07:40)
[2020-10-24] MEDS ORDERED: DEXAMETHASONE SOD PHOSPHATE 10 MG/ML VIAL ONE (08:30)
[2020-10-24] MEDS ORDERED: DIVALPROEX SODIUM 500 MG TABLET.DR PO ONE ×3 (08:35→16:59)
[2020-10-24] MEDS ORDERED: HALOPERIDOL 5 MG TABLET ONE ×2 (08:35→16:59)
[2020-10-24] MEDS ORDERED: AMLODIPINE BESYLATE 5 MG TABLET ONE (08:35)
[2020-10-24] MEDS: AMLODIPINE BESYLATE 5 MG TABLET PO SCH (08:45)
[2020-10-24] MEDS: MAGNESIUM HYDROXIDE 30 ML UDC PO SCH (08:45)
[2020-10-24] MEDS: DEXAMETHASONE SOD PHOSPHATE 10 MG/ML VIAL IV SCH (08:45)
[2020-10-24] MEDS: HALOPERIDOL 5 MG TABLET PO SCH ×2 (08:45→16:58)
[2020-10-24] MEDS: DIVALPROEX SODIUM 500 MG TABLET.DR PO SCH ×3 (08:45→16:58)
[2020-10-24] MEDS: DOCUSATE SODIUM 100 MG CAPSULE PO SCH (08:45)
[2020-10-24] MEDS: CHOLECALCIFEROL 1,000 UNIT TABLET (VIT D3) PO SCH (08:45)
[2020-10-24 14:08] LABS: BAND % (MANUAL) 2 % (0.0-5.0); LYMPHOCYTES % (MANUAL) 13 % (16-48); MONOCYTES % (MANUAL) 17 % (0-11.0); NEUTROPHILS % (MANUAL) 68 (42-76)
[2020-10-25] MEDS ORDERED: ENOXAPARIN SODIUM 40 MG/0.4 ML DISP.SYRIN SQ ONE (00:05)
[2020-10-25] MEDS: ENOXAPARIN SODIUM 40 MG/0.4 ML DISP.SYRIN SQ SCH (00:10)
[2020-10-25] MEDS: AZITHROMYCIN 500 MG in IV D5W 250 ML IV SCH (00:10)
[2020-10-25] MEDS: ATORVASTATIN 10 MG TABLET PO SCH (00:10)
--- NOTE | 2020-10-25 01:16 | NUR ---
REPORT GIVEN TO COLLETTE GONCALVES FOR NAKIA, PT WILL BE TRANSPORTED TO 1ST FLOOR
--- NOTE | 2020-10-25 01:48 | NUR ---
PT TRANSPORTED TO 1ST FLOOR
[2020-10-25 02:00] VITALS: BP 103/75
[2020-10-25] MEDS: IV NS 0.9% 1,000 ML IV PRN (03:54)
[2020-10-25 04:00] VITALS: BP 119/66
[2020-10-25 07:15] LABS: BASOPHILS % (AUTO) 0.3 % (0.0-2.0); HEMATOCRIT 40 % (39-51); HEMOGLOBIN 13.6 g/dL (13.5-17.5); LYMPHOCYTES % (AUTO) 17.7 % (20.0-44.0); MEAN CORPUSCULAR HGB CONC 34 g/dl (31.0-36.0); MEAN CORPUSCULAR VOLUME 97 fL (80-96); MONOCYTES # (AUTO) 0.8 /CMM (0.1-1.30); MONOCYTES % (AUTO) 13.4 % (2.0-12.0); NEUTROPHILS # (AUTO) 3.8 /CMM (1.8-8.9); NEUTROPHILS % (AUTO) 68.6 % (43.0-81.0); PLATELET COUNT (AUTO) 156 /CMM (150-450); RED BLOOD CELL COUNT(AUTO) 4.15 MIL/uL (4.5-6.0); WHITE BLOOD COUNT (AUTO) 5.6 K/uL (4.3-11.0)
--- NOTE | 2020-10-25 07:35 | NUR ---
HEALTHCARE ADMINISTRATIVE ASSISTANT NOTES PATIENT RECEIVED IN BED RESTING COMFORTABLY, ALERT AND ORIENTED X 1, RAMBLING/MUMBLING WORDS. ON ROOM AIR AT THIS TIME, WITH NO RESPIRATORY DISTRESS PRESENT, WITH EVEN NON-LABORED BREATHING. ON BACK TACKER. SKIN WARM AND DRY TO TOUCH. IV ACCESS INTACT AND PATENT, CURRENTLY INFUSING IV FLUIDS. PATIENT PRESENTING WITH NO PAIN OR DISCOMFORT AT THIS TIME. SAFETY PRECAUTIONS IMPLEMENTED WITH BED LOCKED, BILATERAL SIDE RAILS UP, BED IN LOWEST POSITION, BED ALARM ON, AN CALL LIGHT WITHIN EASY REACH. WILL CONTINUE TO MONITOR PATIENT.
[2020-10-25 07:37] LABS: CALCIUM, SERUM 8.7 mg/dL (8.5-10.1); CREATININE 0.7 mg/dL (0.6-1.3); PHOSPHORUS 2.6 mg/dL (2.5-4.9)
[2020-10-25 08:00] VITALS: BP 131/77
[2020-10-25] MEDS: DOCUSATE SODIUM 100 MG CAPSULE PO SCH (08:27)
[2020-10-25] MEDS: CHOLECALCIFEROL 1,000 UNIT TABLET (VIT D3) PO SCH (08:27)
[2020-10-25] MEDS: HALOPERIDOL 5 MG TABLET PO SCH (08:27)
[2020-10-25] MEDS: PANTOPRAZOLE 40 MG TABLET.DR PO SCH (08:27)
[2020-10-25] MEDS: MAGNESIUM HYDROXIDE 30 ML UDC PO SCH (08:27)
[2020-10-25] MEDS: LEVOTHYROXINE SODIUM 75 MCG TABLET PO SCH (08:27)
[2020-10-25] MEDS: DEXAMETHASONE SOD PHOSPHATE 10 MG/ML VIAL IV SCH (08:27)
[2020-10-25] MEDS: DIVALPROEX SODIUM 500 MG TABLET.DR PO SCH ×2 (08:27→12:48)
[2020-10-25] MEDS: AMLODIPINE BESYLATE 5 MG TABLET PO SCH (08:28)
[2020-10-25 12:00] VITALS: BP 126/71
[2020-10-25] MEDS ORDERED: AZIT250T13 PO (13:46)
[2020-10-25] MEDS ORDERED: DEXA4TAB PO (13:46)
[2020-10-25 16:00] VITALS: BP 144/92
--- NOTE | 2020-10-25 16:15 | NUR ---
RETURNED GOODS SORTER NOTES SPOKE WITH RN AT [facility] TO GIVE REPORT, FROM [facility], . PATIENT AWAKE IN BED RESTING COMFORTABLY. VITAL SIGNS WITHIN NORMAL LIMITS. ON ROOM AIR WITH NO RESPIRATORY DISTRESS PRESENT AT THIS TIME WITH EVEN NON-LABORED BREATHING, AND NO SOB NOTED. PATIENT PRESENTING WITH NO PAIN OR DISCOMFORT AT THIS TIME. REMOVE IV ACCESS, APPLIED PRESSURE TO SITE. REMOVED ID BAND. SKIN ASSESSMENT DONE. PATIENT ACCOUNTED FOR ALL BELONGINGS. EXIT CARE PROVIDED TO PATIENT. PATIENT LEFT UNIT VIA GURNEY ACCOMPANIED BY TWO computer forensics technician.
== END 2020-10-25 18:08 | DRG 177 ==
LOC: ER 20:27 → TRANSITION 22:17 → TELE1 10-25 00:08
PROVIDERS: ADMIT Nurse Practitioner Acute Care; ATTEND Nurse Practitioner Acute Care
DX: U07.1 COVID-19 (principal); G93.41 Metabolic encephalopathy; N17.0 Acute kidney failure with tubular necrosis; J12.82 Pneumonia due to coronavirus disease 2019; D68.59 Other primary thrombophilia; M62.82 Rhabdomyolysis; E03.9 Hypothyroidism, unspecified; D64.9 Anemia, unspecified; F03.90 Unspecified dementia, unspecified severity, without behavioral disturbance, psychotic disturbance, mood disturbance, and anxiety; E78.5 Hyperlipidemia, unspecified; I25.10 Atherosclerotic heart disease of native coronary artery without angina pectoris; G40.909 Epilepsy, unspecified, not intractable, without status epilepticus; Z79.899 Other long term (current) drug therapy; F20.9 Schizophrenia, unspecified; F31.9 Bipolar disorder, unspecified; I10 Essential (primary) hypertension; Z87.01 Personal history of pneumonia (recurrent); Z74.09 Other reduced mobility; K44.9 Diaphragmatic hernia without obstruction or gangrene; F41.9 Anxiety disorder, unspecified; Z79.890 Hormone replacement therapy
CPT/HCPCS: 36415; 36600; 71045-TC; 80048-TC; 80053-TC; 80061-TC; 80164-TC; 81001; 82550-TC; 82553; 82728-TC; 83605-TC; 83615-TC; 83735-TC; 83880; 84100-TC; 84443-TC; 84484-TC; 85025-TC; 85378-TC; 85385-TC; 85730-TC; 86140-TC; 87040-TC; 87081-TC; 87086-TC; G0378; J0456; J1100; J1650; J2270; J3490; J7030; J7060; U0003

== ENCOUNTER 2021-09-22 20:27 | Inpatient (IN) | payer MEDICARE, OTHER ==
[~2021-09-22] VITALS: Ht 165.1 cm; Wt 88.5 kg
[~2021-09-22 20:27] MED LIST changes: +AZIT250T13 PO; +DEXA4TAB PO; -PIPE3.379 IV
--- NOTE | 2021-09-22 21:05 | NUR ---
PATIENT ROBERT FROM [facility] C/O GEN WEAKNESS, FEVER, TACHYCARDIA. 90% O2 SAT ON RA. PT SENT BY PMD. PATIENT A/O X 2-3, RR EVEN AND UNLABORED, NO SOB NOTED. PATIENT CONNECTED TO CARDIAC AND POX MONITOR.
--- NOTE | 2021-09-22 21:25 | NUR ---
LAB AT BEDSIDE
--- NOTE | 2021-09-22 21:26 | NUR ---
RAD AT BEDSIDE
[2021-09-22] MEDS ORDERED: IV NS 0.9% 1,000 ML BAG IV ONE (21:30)
[2021-09-22 21:41] LABS: BASOPHILS # (AUTO) 0.1 K/uL (0.0-0.2); BASOPHILS % (AUTO) 0.3 % (0.0-2.0); EOSINOPHILS % (AUTO) 0.1 % (0.0-6.0); HEMATOCRIT 40 % (39-51); HEMOGLOBIN 13.4 g/dL (13.5-17.5); LYMPHOCYTES # (AUTO) 0.9 K/uL (0.8-4.8); LYMPHOCYTES % (AUTO) 4.3 % (20.0-44.0); MEAN CORPUSCULAR HGB CONC 33 g/dl (31.0-36.0); MEAN CORPUSCULAR VOLUME 98 fL (80-96); MONOCYTES % (AUTO) 9.1 % (2.0-12.0); NEUTROPHILS # (AUTO) 18.9 K/uL (1.8-8.9); NEUTROPHILS % (AUTO) 86.2 % (43.0-81.0); PLATELET COUNT (AUTO) 241 K/uL (150-450); RED BLOOD CELL COUNT(AUTO) 4.12 MIL/uL (4.5-6.0); WHITE BLOOD COUNT (AUTO) 21.9 K/uL (4.3-11.0)
[2021-09-22 21:49] LABS: CALCIUM, SERUM 8.8 mg/dL (8.5-10.1); CARBON DIOXIDE 25 mmol/L (21-32); CHLORIDE 106 mmol/L (98-107); GLUCOSE 111 mg/dL (74-106); POTASSIUM 4.3 mmol/L (3.5-5.1); SODIUM SERUM 140 mmol/L (136-145); UREA NITROGEN, BLOOD 12 mg/dL (7-18)
[2021-09-22 21:55] LABS: ALANINE AMINOTRANSFERASE 26 U/L (12-78); ALBUMIN 2.7 g/dL (3.4-5.0); ALKALINE PHOSPHATASE 85 U/L (46-116); ASPARTATE AMINOTRANSFERASE 22 U/L (15-37); BILIRUBIN,DIRECT 0.2 mg/dL (0.0-0.2); BILIRUBIN,TOTAL 0.5 mg/dL (0.2-1.0); TOTAL PROTEIN, SERUM 6.2 g/dL (6.4-8.2)
--- NOTE | 2021-09-22 21:55 | NUR ---
URINE COLLECTED AND SENT TO LAB
--- NOTE | 2021-09-22 22:15 | NUR ---
COVID SWAB COLLECTED AND SENT TO LAB
--- NOTE | 2021-09-22 22:39 | NUR ---
CALLED HOUSE SUP FOR TELE PUI BED
--- NOTE | 2021-09-22 23:01 | NUR ---
TELE BED: 105
[2021-09-22 23:03] LABS: BILIRUBIN,URINE NEGATIVE (NEGATIVE); COLOR,URINE YELLOW (YELLOW); LEUKOCYTE ESTERASE ,URINE SMALL (NEGATIVE); NITRITE, URINE POSITIVE (NEGATIVE); PH,URINE 8.5 (5.0-8.0); PROTEIN,URINE 30 mg/dl (NEGATIVE); UGLUCOSE NEGATIVE (NEGATIVE); UROBILINOGEN,URINE 0.2 EU/dL (0.2)
[2021-09-22] MEDS ORDERED: CEFTRIAXONE 1GM BAG (ER ONLY) 50 ML IV ONE (23:28)
[2021-09-22] MEDS ORDERED: CEFTRIAXONE 1GM BAG (ER ONLY) 1 GM/50 ML PIGGYBACK IV ONE (23:30)
--- NOTE | 2021-09-22 23:36 | NUR ---
REPORT GIVEN TO ADAIR MURDOCK
[2021-09-22 23:37] LABS: BACTERIA,URINE Many /HPF (None Seen); SQUAMOUS EPITHELIAL CELL,UR Few /HPF (None Seen); TRIPLE PHOSPHATE CRYSTAL,UR Few /HPF (None Seen); URINE AMORPHOUS PHOSPHATES Many /HPF (None Seen); WBC,URINE 21-50 /HPF (0-3)
[2021-09-23] VITALS (7 sets, daily range): BP systolic 104–150; BP diastolic 58–76
[2021-09-23] MEDS ORDERED: Z GUARD REMEDY 2 OZ OINT TP PRN
[2021-09-23] MEDS ORDERED: BISACODYL SUPP (10 MG) 10 MG/SUPP.RECT SUPP.RECT RC PRN
[2021-09-23] MEDS ORDERED: MAGNESIUM HYDROXIDE 30 ML UDC PO PRN
[2021-09-23] MEDS ORDERED: ONDANSETRON HCL/PF 4 MG/2 ML VIAL IVP PRN
[2021-09-23] MEDS ORDERED: MAG HYDROX/AL HYDROX/SIMETH 30 ML UDC PO PRN
[2021-09-23] MEDS ORDERED: VANCOMYCIN 1 GM in IV D5W 250ml IV ONE (00:30)
--- NOTE | 2021-09-23 00:35 | NUR ---
TRANSFERRED UNDER ACLS
--- NOTE | 2021-09-23 00:40 | NUR ---
RN NOTES ADMITTED A 76 Y/O MALE PATIENT A/O X1. WITH OXYGEN INHALATION AT 2LMP VIA NC. NOT IN DISTRESS NO SOB NOTED AT THIS TIME. WITH IV ACCESS AT R HAND #24 PATENT FLUSHES WELL. TRANSFER TO BED SAFELY. VITAL SIGNS TAKEN AND RECORDED. ALL SAFETY MEASURES IN PLACE AT ALL TIMES. BODY ASSESSMENTS DONE. HOB ELEVATED. CALL LIGHT WITHIN REACH BED ON LOWEST POSITION AND LOCKED. BED ALARM ACTIVATED.IV NS @ 90CC/HR STARTED ORDERED. WILL CONTINUE TO MONITOR CLOSELY
[2021-09-23] MEDS: IV NS 0.9% 1,000 ML IV PRN ×3 (00:48→14:44)
[2021-09-23] MEDS ORDERED: PIPERACILLIN /TAZOBACTAM 3.375 G VIAL IV ONE ×2 (00:56→06:15)
[2021-09-23] MEDS ORDERED: VANCOMYCIN 1 GM VIAL ONE (00:56)
[2021-09-23] MEDS: PIPERACILLIN /TAZOBACTAM 3.375 G in IV D5W 50 ML IV SCH ×4 (01:02→17:14)
--- NOTE | 2021-09-23 04:00 | NUR ---
RN NOTES TEMP 100.5 COOLING MEASURES DONE PRN TYLENOL 650 MG GIVEN WILL CONTINUE TO MONITOR
[2021-09-23] MEDS: ACETAMINOPHEN 325 MG TABLET PO PRN ×2 (04:46→04:47)
[2021-09-23 06:43] LABS: BASOPHILS % (AUTO) 0.1 % (0.0-2.0); HEMATOCRIT 35 % (39-51); LYMPHOCYTES # (AUTO) 0.8 K/uL (0.8-4.8); MEAN CORPUSCULAR HGB CONC 34 g/dl (31.0-36.0); MEAN CORPUSCULAR VOLUME 97 fL (80-96); MONOCYTES # (AUTO) 1.8 K/uL (0.1-1.30); MONOCYTES % (AUTO) 8.9 % (2.0-12.0); NEUTROPHILS # (AUTO) 17.1 K/uL (1.8-8.9); PLATELET COUNT (AUTO) 212 K/uL (150-450); RED BLOOD CELL COUNT(AUTO) 3.64 MIL/uL (4.5-6.0); WHITE BLOOD COUNT (AUTO) 19.7 K/uL (4.3-11.0)
--- NOTE | 2021-09-23 06:50 | NUR ---
RN NOTES PATIENT IN BED. NO SOB NO DISTRESS. ALL DUE MEDS GIVEN ORDERED. STILL ON 2L OXYGEN SATING 99%. COOLING MEASURES RENDERED. TEMPERATURE 99.0. ALL SAFETY MEASURES IN PLACE AT ALL TIMES. HOB ELEVATED, CALL LIGHT WITHIN REACH. SIDE RAILS UP FOR SAFETY. BED ON LOWEST POSITION AND LOCKED. WILL CONTINUE TO MONITOR. ENDORSED
--- NOTE | 2021-09-23 07:30 | NUR ---
RN NOTES PATIENT A/O X1. WITH OXYGEN INHALATION AT 2LMP VIA NC. NOT IN DISTRESS NO SOB NOTED AT THIS TIME. WITH IV ACCESS AT R HAND #24 PATENT FLUSHES WELL. ALL SAFETY MEASURES IN PLACE. HOB ELEVATED. CALL LIGHT WITHIN REACH BED ON LOWEST POSITION AND LOCKED. BED ALARM ACTIVATED.IV NS @ 90CC/HR INFUSING. WILL CONTINUE TO MONITOR. NAKIA
[2021-09-23] MEDS: LEVOTHYROXINE SODIUM 100 MCG TABLET PO SCH (07:50)
[2021-09-23 08:11] LABS: ALBUMIN 2.2 g/dL (3.4-5.0); BILIRUBIN,TOTAL 0.5 mg/dL (0.2-1.0); CALCIUM, SERUM 8.2 mg/dL (8.5-10.1); CREATININE 0.9 mg/dL (0.6-1.3); MAGNESIUM 1.7 mg/dL (1.8-2.4); PHOSPHORUS 3.3 mg/dL (2.5-4.9); POTASSIUM 3.8 mmol/L (3.5-5.1); TOTAL PROTEIN, SERUM 5.3 g/dL (6.4-8.2)
[2021-09-23] MEDS: DIVALPROEX SODIUM 500 MG TABLET.DR PO SCH ×3 (08:44→16:50)
[2021-09-23] MEDS: HALOPERIDOL 5 MG TABLET PO SCH ×2 (08:44→16:50)
[2021-09-23] MEDS: DOCUSATE SODIUM 100 MG CAPSULE PO SCH (08:44)
[2021-09-23] MEDS: AMLODIPINE BESYLATE 10 MG TABLET PO SCH (08:45)
[2021-09-23] MEDS ORDERED: MAGNESIUM OXIDE 400 MG TABLET PO ONE (10:00)
[2021-09-23] MEDS: VANCOMYCIN 1 GM in IV D5W 250 ML IV SCH (13:13)
--- NOTE | 2021-09-23 13:14 | NUR ---
RN NOTES CALLED PHARMACY REGARDING THERE IS NO VANCO THROUGH, MONISHA REPLIED IT IS OK TO BE GIVEN, THE VANCO THROUGH DUE TOMORROW
--- NOTE | 2021-09-23 18:38 | NUR ---
RN NOTES PATIENT REMAIN IN BED. NO SOB NO DISTRESS. ALL DUE MEDS GIVEN ORDERED. STILL ON 2L OXYGEN SATING 99%. AFEBRILE DURING MY SHIFT. TEMPERATURE 97.7 . ALL SAFETY MEASURES IN PLACE AT ALL TIMES. HOB ELEVATED, CALL LIGHT WITHIN REACH. SIDE RAILS UP FOR SAFETY. BED ON LOWEST POSITION AND LOCKED. WILL CONTINUE TO MONITOR. ENDORSED
[2021-09-23] MEDS: ATORVASTATIN 10 MG TABLET PO SCH (23:21)
[2021-09-24] VITALS: BP 106/58
[2021-09-24] MEDS: PIPERACILLIN /TAZOBACTAM 3.375 G in IV D5W 50 ML IV SCH ×4 (00:25→18:09)
[2021-09-24] MEDS: VANCOMYCIN 1 GM in IV D5W 250 ML IV SCH ×2 (01:57→15:55)
[2021-09-24 04:00] VITALS: BP 91/48
--- NOTE | 2021-09-24 06:37 | NUR ---
RN NOTES PATIENT IN BED, ASLEEP AT THIS TIME, AROUSES TO VERBAL STIMULI, NO SOB NO DISTRESS NOTED DURING THE NIGHT, ON 2L OXYGEN WITH OPTIMAL O2 SAT LEVEL, ALL SAFETY MEASURES IN PLACE, ON ASPIRATION PRECAUTIONS, HOB ELEVATED, CALL LIGHT WITHIN REACH, BED LOCKED AND LOWEST POSITION, SIDE RAILS UP X2, WILL ENDORSE CONTINUITY OF CARE TO ONCOMING NURSE.
[2021-09-24 06:49] LABS: BASOPHILS % (AUTO) 0.3 % (0.0-2.0); EOSINOPHILS % (AUTO) 0.7 % (0.0-6.0); HEMATOCRIT 35 % (39-51); HEMOGLOBIN 11.8 g/dL (13.5-17.5); LYMPHOCYTES # (AUTO) 1.2 K/uL (0.8-4.8); LYMPHOCYTES % (AUTO) 8.3 % (20.0-44.0); MEAN CORPUSCULAR HGB CONC 34 g/dl (31.0-36.0); MEAN CORPUSCULAR VOLUME 97 fL (80-96); MONOCYTES % (AUTO) 6.8 % (2.0-12.0); NEUTROPHILS # (AUTO) 12.1 K/uL (1.8-8.9); NEUTROPHILS % (AUTO) 83.9 % (43.0-81.0); PLATELET COUNT (AUTO) 220 K/uL (150-450); WHITE BLOOD COUNT (AUTO) 14.5 K/uL (4.3-11.0)
[2021-09-24 07:04] LABS: CALCIUM, SERUM 8.4 mg/dL (8.5-10.1); CREATININE 0.9 mg/dL (0.6-1.3); MAGNESIUM 1.9 mg/dL (1.8-2.4); POTASSIUM 4.3 mmol/L (3.5-5.1)
--- NOTE | 2021-09-24 07:38 | NUR ---
RN OPENING NOTE RECEIVED PT ASLEEP IN BED, RESPONSIVE TO STIMULI. CONTINUES ON O2 @2L, NOT IN RESPIRATORY DISTRESS. A/O X1. R HAND G24 IN PLACE AND PATENT, ON IVF NS @90CC/HR TOLERATING WELL. ALL SAFETY MEASURES FOLLOWED. WILL CONTINUE TO MONITOR.
[2021-09-24 08:00] VITALS: BP 134/81
[2021-09-24] MEDS: LEVOTHYROXINE SODIUM 100 MCG TABLET PO SCH (10:03)
[2021-09-24] MEDS: HALOPERIDOL 5 MG TABLET PO SCH ×2 (10:03→16:34)
[2021-09-24] MEDS: AMLODIPINE BESYLATE 10 MG TABLET PO SCH (10:04)
[2021-09-24] MEDS: DIVALPROEX SODIUM 500 MG TABLET.DR PO SCH ×3 (10:05→16:34)
[2021-09-24] MEDS: DOCUSATE SODIUM 100 MG CAPSULE PO SCH (10:06)
[2021-09-24 12:00] VITALS: BP 97/50
[2021-09-24] MEDS: IV NS 0.9% 1,000 ML IV PRN (12:58)
[2021-09-24 16:00] VITALS: BP 105/67
--- NOTE | 2021-09-24 18:56 | NUR ---
RN CLOSING NOTE PT ASLEEP IN BED, VERBALLY RESPONSIVE TO STIMULI. CONTINUES ON O2 @2L, NOT IN RESPIRATORY DISTRESS. A/O X2. R HAND G24 IN PLACE AND PATENT, ON IVF NS @90CC/HR TOLERATING WELL. ON IV ABT ZOSYN AND VANCO GIVEN THIS SHIFT. NO ADVERSE REACTIONS NOTED AT THIS TIME. DUE MEDICATIONS GIVEN. ALL SAFETY MEASURES FOLLOWED. WILL CONTINUE TO MONITOR.
--- NOTE | 2021-09-24 19:44 | NUR ---
RN OPENING NOTES: RECEIVED PATIENT IN BED ALERT, ORIENTED X 2, VERBALLY RESPONSIVE. ON O2 AT 2L/MIN VIA N/C. BREATHING EVEN AND UNLABORED. IV ACCESS ON RT HAND #24G INTACT AND PATENT. NO S/S OF INFILTRATIONS. NO C/O PAIN OR DISCOMFORT. NO ACUTE DISTRESS. SKIN WARM AND DRY TO TOUCH. PT STAYED IN BED AT THIS MOMENT. BED ALARM ON. BOTH SIDE RAILS UP. BED IN LOW POSITION AND LOCKED. PLACE CALL LIGHT WITH IN REACH. WILL CONTINUE TO MONITOR
--- NOTE | 2021-09-24 19:56 | NUR ---
REPORT GIVEN TO ARISTIDES NURSE FOR CONTINUE POINT OF CARE
[2021-09-24 20:00] VITALS: BP 137/73
[2021-09-24] MEDS: ATORVASTATIN 10 MG TABLET PO SCH (23:12)
[2021-09-25] VITALS: BP 134/78
[2021-09-25] MEDS: PIPERACILLIN /TAZOBACTAM 3.375 G in IV D5W 50 ML IV SCH ×5 (00:14→23:13)
[2021-09-25] MEDS: VANCOMYCIN 1 GM in IV D5W 250 ML IV SCH ×2 (01:13→13:20)
[2021-09-25] MEDS: IV NS 0.9% 1,000 ML IV PRN ×2 (03:55→18:37)
[2021-09-25 04:00] VITALS: BP 128/73
--- NOTE | 2021-09-25 06:54 | NUR ---
RN CLOSING NOTES: PATIENT AWAKE IN BED, BED IN LOW POSITION, CALL LIGHTS WITHIN REACH, NO COMPLAIN OF PAIN AND DISCOMFORT AT THIS TIME, WITH ONGOING IV LINE AT LEFT HAND #22 WITH 0.9NSS@90CC/HR INFUSING WELL, PATIENT WAS COOPERATIVE, ON TELE MONITORING, NO SYMPTOMS WAS OBSERVED, ON O2 INHALATION AT 3LPM INFUSING WELL, NO SOB WAS OBSERVED, PATIENT KEPT CLEAN AND DRY, ALL NEEDS MET, ENDORSE TO INCOMING SHIFT.
[2021-09-25 07:14] LABS: BASOPHILS % (AUTO) 0.3 % (0.0-2.0); EOSINOPHILS % (AUTO) 1.1 % (0.0-6.0); HEMATOCRIT 36 % (39-51); HEMOGLOBIN 12.3 g/dL (13.5-17.5); LYMPHOCYTES # (AUTO) 0.8 K/uL (0.8-4.8); LYMPHOCYTES % (AUTO) 8.6 % (20.0-44.0); MEAN CORPUSCULAR HGB CONC 34 g/dl (31.0-36.0); MEAN CORPUSCULAR VOLUME 97 fL (80-96); MONOCYTES # (AUTO) 0.8 K/uL (0.1-1.30); MONOCYTES % (AUTO) 7.8 % (2.0-12.0); NEUTROPHILS # (AUTO) 8.1 K/uL (1.8-8.9); NEUTROPHILS % (AUTO) 82.2 % (43.0-81.0); PLATELET COUNT (AUTO) 274 K/uL (150-450); WHITE BLOOD COUNT (AUTO) 9.8 K/uL (4.3-11.0)
--- NOTE | 2021-09-25 07:30 | NUR ---
TRACK LAYING SUPERVISOR OPENING NOTES: RECEIVED PATIENT ON BED ALERT, ORIENTED X 2-3. ON O2 AT 2L/MIN VIA NASAL CANNULA BREATHING EVENLY AND UNLABORED. NOT IN DISTRESS. WITH NO COMPLAINTS OF PAIN OR DISCOMFORT AT THIS TIME. WITH IV ACCESS AT RIGHT HAND #24G WITH IVF NS AT 90ML/HR INFUSING WELL. IV SITE IS INTACT AND PATENT. SAFETY MEASURES IN PLACED. CALL LIGHT AND BEDSIDE TABLE WITHIN REACH. BED ALARM ON. BED ON LOWEST LOCKED POSITION, SIDE RAILS UP X2. WILL CONTINUE TO MONITOR.
--- NOTE | 2021-09-25 07:30 | NUR ---
OUTSIDE PRODUCTION INSPECTOR NOTES ON TELE MONITOR CURRENTLY READING SINUS RHYTHM AT 91BPM.
[2021-09-25 07:47] LABS: CALCIUM, SERUM 8.5 mg/dL (8.5-10.1); CREATININE 0.9 mg/dL (0.6-1.3); POTASSIUM 4.1 mmol/L (3.5-5.1)
[2021-09-25 08:00] VITALS: BP 128/82
[2021-09-25] MEDS: DOCUSATE SODIUM 100 MG CAPSULE PO SCH (08:41)
[2021-09-25] MEDS: LEVOTHYROXINE SODIUM 100 MCG TABLET PO SCH (08:41)
[2021-09-25] MEDS: DIVALPROEX SODIUM 500 MG TABLET.DR PO SCH ×3 (08:41→16:36)
[2021-09-25] MEDS: HALOPERIDOL 5 MG TABLET PO SCH ×2 (08:41→16:36)
[2021-09-25] MEDS: AMLODIPINE BESYLATE 10 MG TABLET PO SCH (08:43)
[2021-09-25 12:00] VITALS: BP 126/68
[2021-09-25 16:00] VITALS: BP 143/71
--- NOTE | 2021-09-25 18:24 | NUR ---
TAPE DECK INSTALLER CLOSING NOTES: PATIENT RESTING ON BED AND A/O X 2-3. ON O2 AT 2L/MIN VIA NASAL CANNULA BREATHING EVENLY AND UNLABORED. NOT IN DISTRESS. WITH NO COMPLAINTS OF PAIN OR DISCOMFORT AT THIS TIME. ON TELE MONITOR CURRENTLY READING SINUS RHYTHM AT 82BPM. WITH IV ACCESS AT RIGHT HAND #24G WITH IVF NS AT 90ML/HR INFUSING WELL. IV SITE IS INTACT AND PATENT. DUE MEDS GIVEN. SAFETY MEASURES IN PLACED. CALL LIGHT AND BEDSIDE TABLE WITHIN REACH. BED ALARM ON. BED ON LOWEST LOCKED POSITION, SIDE RAILS UP X2. WILL ENDORSE TO NEXT SHIFT FOR NAKIA.
--- NOTE | 2021-09-25 19:45 | NUR ---
CHIEF OPHTHALMIC TECHNICIAN OPENING NOTES PATIENT AWAKE IN BED, ALERT/ORIENTED X 2, PT DENIES PAIN OR DISCOMFORT AT THIS TIME. PT STABLE ON 2LPM OF OXYGEN VIA NC, NO S/S OF DISTRESS OR SOB NOTED, BREATHING EVEN AND UNLABORED. PT ON EXTERNAL CNA PER DIEM READING SINUS RHYTHM, HR: 83. IV ACCESS ON RIGHT HAND #24G INTACT AND RUNNING NS @ 90 ML/HR. SAFETY MEASURES IN PLACE: CALL LIGHT WITHIN REACH, SIDE RAILS UP X 2, BED LOCKED IN LOW POSITION, BED ALARM ON. WILL CONTINUE TO MONITOR PATIENT
[2021-09-25 20:00] VITALS: BP 138/74
[2021-09-25] MEDS: ATORVASTATIN 10 MG TABLET PO SCH (22:08)
[2021-09-26] VITALS: BP 137/79
[2021-09-26] MEDS: VANCOMYCIN 1 GM in IV D5W 250 ML IV SCH (00:59)
[2021-09-26 04:00] VITALS: BP 128/72
[2021-09-26] MEDS: PIPERACILLIN /TAZOBACTAM 3.375 G in IV D5W 50 ML IV SCH ×3 (05:28→17:23)
--- NOTE | 2021-09-26 07:15 | NUR ---
LANDSCAPER HELPER CLOSING NOTE PATIENT SLEEPING IN BED, NO SIGNIFICANT CHANGES THROUGHOUT SHIFT. PT STABLE ON 2LPM OF OXYGEN VIA NC, NO S/S OF DISTRESS OR SOB NOTED, BREATHING EVEN AND UNLABORED. PT ON EXTERNAL DEVELOPMENT MECHANIC READING SINUS RHYTHM. IV ACCESS ON RIGHT HAND #24G INTACT AND RUNNING NS @ 90 ML/HR. MEDICATIONS GIVEN ORDERED, PT NEEDS MET THROUGHOUT SHIFT. SAFETY MEASURES IN PLACE: CALL LIGHT WITHIN REACH, SIDE RAILS UP X 2, BED LOCKED IN LOW POSITION, BED ALARM ON. ENDORSED TO DAY SHIFT NURSE FOR CONTINUITY OF CARE
--- NOTE | 2021-09-26 07:20 | NUR ---
CORRECTIONAL OFFICER SERGEANT CLOSING NOTES: PATENT RECEIVED IN BED AND A/O X 2-3. ON O2 AT 2L/MIN VIA NASAL CANNULA BREATHING EVEN AND UNLABORED. NOT SIGN OF DISTRESS OR SOB AT THIS TIME WITH NO COMPLAINTS OF PAIN OR DISCOMFORT, PT ON TELE MONITOR CURRENTLY READING SINUS RHYTHM HR 80. WITH IV ACCESS IN THE RIGHT HAND #24G INTACT AND PATENT RUNNING NS AT 90ML/HR INFUSING WELL. SAFETY MEASURES IN PLACED. CALL LIGHT WITHIN REACH. BED ALARM ON. BED ON LOWEST AND LOCKED POSITION, SIDE RAILS UP WILL CONTINUE TO MONITOR Addendum: 09/26/21 at 0720 by JEREMY PINK RN OPEN FENG
[2021-09-26 08:00] VITALS: BP 155/80
[2021-09-26] MEDS: DIVALPROEX SODIUM 500 MG TABLET.DR PO SCH ×3 (08:07→16:51)
[2021-09-26] MEDS: LEVOTHYROXINE SODIUM 100 MCG TABLET PO SCH (08:07)
[2021-09-26] MEDS: AMLODIPINE BESYLATE 10 MG TABLET PO SCH (08:07)
[2021-09-26] MEDS: HALOPERIDOL 5 MG TABLET PO SCH ×2 (08:07→16:51)
[2021-09-26] MEDS: DOCUSATE SODIUM 100 MG CAPSULE PO SCH (08:07)
[2021-09-26 08:37] LABS: BASOPHILS % (AUTO) 0.6 % (0.0-2.0); EOSINOPHILS % (AUTO) 2.4 % (0.0-6.0); HEMATOCRIT 36 % (39-51); HEMOGLOBIN 12.4 g/dL (13.5-17.5); LYMPHOCYTES # (AUTO) 0.9 K/uL (0.8-4.8); LYMPHOCYTES % (AUTO) 11.5 % (20.0-44.0); MEAN CORPUSCULAR HGB CONC 35 g/dl (31.0-36.0); MEAN CORPUSCULAR VOLUME 96 fL (80-96); MONOCYTES # (AUTO) 0.8 K/uL (0.1-1.30); MONOCYTES % (AUTO) 10.7 % (2.0-12.0); NEUTROPHILS # (AUTO) 5.8 K/uL (1.8-8.9); NEUTROPHILS % (AUTO) 74.8 % (43.0-81.0); PLATELET COUNT (AUTO) 279 K/uL (150-450); RED BLOOD CELL COUNT(AUTO) 3.75 MIL/uL (4.5-6.0); WHITE BLOOD COUNT (AUTO) 7.8 K/uL (4.3-11.0)
[2021-09-26] MEDS ORDERED: ACET-868 PO (08:53)
[2021-09-26] MEDS ORDERED: CRAN425C6 PO (08:53)
--- NOTE | 2021-09-26 08:54 | NUR ---
per [facility] covid negative.
[2021-09-26 09:18] LABS: CALCIUM, SERUM 9.1 mg/dL (8.5-10.1); CREATININE 0.8 mg/dL (0.6-1.3); POTASSIUM 3.8 mmol/L (3.5-5.1)
[2021-09-26 12:00] VITALS: BP 139/90
[2021-09-26 16:00] VITALS: BP 144/76
--- NOTE | 2021-09-26 18:56 | NUR ---
INSULATION BOARD CALENDER OPERATOR CLOSING NOTES: PATENT REMAINS IN BED AND A/O X 2-3. ON ROOM AIR TOLERATING WELL, BREATHING EVEN AND UNLABORED. NOT SIGN OF DISTRESS OR SOB AT THIS TIME WITH NO COMPLAINTS OF PAIN OR DISCOMFORT, PT ON TELE MONITOR CURRENTLY READING SINUS RHYTHM HR 72 WITH IV ACCESS IN THE RIGHT HAND #24G INTACT AND PATENT, INFUSING WELL. SAFETY MEASURES IN PLACED. CALL LIGHT WITHIN REACH. BED ALARM ON. BED ON LOWEST AND LOCKED POSITION, WILL ENDORSE TO FITTING ROOM CHECKERHYDRAMATIC SPECIALIST
--- NOTE | 2021-09-26 19:48 | NUR ---
RN OPENING NOTES: RECEIVED CARE OF PATIENT WHILE PATIENT IN BED, A/O X 3, ABLE TO VERBALIZE NEEDS. ON ROOM AIR TOLERATING WELL, O2 SAT IS 97% AT THIS TIME, BREATHING EVEN AND UNLABORED. NOT SIGN OF DISTRESS OR SOB AT THIS TIME WITH NO COMPLAINTS OF PAIN OR DISCOMFORT, PT ON TELE MONITOR CURRENTLY READING SINUS RHYTHM HR 75. PATIENT HAS IV ACCESS IN THE RIGHT HAND #24G INTACT AND PATENT, FLUSHING WELL. SAFETY MEASURES IN PLACED. CALL LIGHT WITHIN REACH. BED ALARM ON. BED ON LOWEST AND LOCKED POSITION, WILL CONTINUE TO MONITOR FOR ANY CHANGES THROUGHOUT SHIFT.
[2021-09-26 20:00] VITALS: BP 135/73
[2021-09-26] MEDS: ATORVASTATIN 10 MG TABLET PO SCH (22:41)
[2021-09-27] VITALS: BP 127/60
[2021-09-27] MEDS: PIPERACILLIN /TAZOBACTAM 3.375 G in IV D5W 50 ML IV SCH ×5 (00:30→23:15)
[2021-09-27 04:00] VITALS: BP 124/76
[2021-09-27 07:10] LABS: BASOPHILS % (AUTO) 0.6 % (0.0-2.0); EOSINOPHILS % (AUTO) 3.2 % (0.0-6.0); HEMATOCRIT 35 % (39-51); HEMOGLOBIN 12.2 g/dL (13.5-17.5); LYMPHOCYTES # (AUTO) 1.1 K/uL (0.8-4.8); LYMPHOCYTES % (AUTO) 17.6 % (20.0-44.0); MEAN CORPUSCULAR HGB CONC 35 g/dl (31.0-36.0); MEAN CORPUSCULAR VOLUME 96 fL (80-96); MONOCYTES # (AUTO) 0.7 K/uL (0.1-1.30); MONOCYTES % (AUTO) 11.6 % (2.0-12.0); NEUTROPHILS # (AUTO) 4.2 K/uL (1.8-8.9); PLATELET COUNT (AUTO) 303 K/uL (150-450); RED BLOOD CELL COUNT(AUTO) 3.62 MIL/uL (4.5-6.0); WHITE BLOOD COUNT (AUTO) 6.3 K/uL (4.3-11.0)
[2021-09-27] MEDS: LEVOTHYROXINE SODIUM 100 MCG TABLET PO SCH (07:24)
--- NOTE | 2021-09-27 07:29 | NUR ---
RN CLOSING NOTES: WILL ENDORSE PT WHILE PATIENT IN BED, A/O X 3, ABLE TO VERBALIZE NEEDS. ON ROOM AIR TOLERATING WELL, O2 SAT IS 97% AT THIS TIME, BREATHING EVEN AND UNLABORED. NOT SIGN OF DISTRESS OR SOB AT THIS TIME WITH NO COMPLAINTS OF PAIN OR DISCOMFORT, PT ON TELE MONITOR CURRENTLY READING SINUS RHYTHM HR 80. PATIENT HAS IV ACCESS IN THE RIGHT HAND #24G INTACT AND PATENT, FLUSHING WELL. SAFETY MEASURES IN PLACED. CALL LIGHT WITHIN REACH. BED ALARM ON. BED ON LOWEST AND LOCKED POSITION, WILL ENDORSE TO DAY SHIFT NURSE FOR NAKIA.
[2021-09-27 07:35] LABS: CALCIUM, SERUM 8.6 mg/dL (8.5-10.1); CREATININE 0.8 mg/dL (0.6-1.3)
--- NOTE | 2021-09-27 07:37 | NUR ---
RN OPEN NOTES: RECEIVED PT IN BED AWAKE , A/O X 3, ON ROOM AIR TOLERATING WELL, O2 SAT 97% AT THIS TIME, BREATHING EVEN AND UNLABORED. NOT SIGN OF DISTRESS OR SOB AT THIS TIME WITH NO COMPLAINTS OF PAIN OR DISCOMFORT, TELE MONITOR READING SINUS RHYTHM HR 78 . PATIENT HAS IV ACCESS IN THE RIGHT HAND #24G INTACT AND PATENT, FLUSHING WELL. SAFETY MEASURES IN PLACED. CALL LIGHT WITHIN REACH. BED ALARM ON. BED ON LOWEST AND LOCKED POSITION, WILL CONTINUE TO MONITOR
[2021-09-27 08:00] VITALS: BP 130/72
[2021-09-27] MEDS: AMLODIPINE BESYLATE 10 MG TABLET PO SCH (08:20)
[2021-09-27] MEDS: DOCUSATE SODIUM 100 MG CAPSULE PO SCH (08:20)
[2021-09-27] MEDS: DIVALPROEX SODIUM 500 MG TABLET.DR PO SCH ×3 (08:20→17:00)
[2021-09-27] MEDS: HALOPERIDOL 5 MG TABLET PO SCH ×2 (08:20→17:00)
[2021-09-27 12:00] VITALS: BP 127/70
[2021-09-27 16:00] VITALS: BP 123/69
--- NOTE | 2021-09-27 18:37 | NUR ---
RN CLOSING NOTES: PT REMAINS IN BED AWAKE , A/O X 2-3, ON ROOM AIR TOLERATING WELL, O2 SAT 98% AT THIS TIME, BREATHING EVEN AND UNLABORED. NOT SIGN OF DISTRESS OR SOB NOTED, WITH NO COMPLAINTS OF PAIN OR DISCOMFORT, TELE MONITOR READING SINUS RHYTHM HR 75 . PATIENT HAS IV ACCESS IN THE RIGHT HAND #24G INTACT AND PATENT, FLUSHING WELL. ALL NEEDS MET DURING SHIFT, NO SIGNIFICANT CHANGES, SAFETY MEASURES IN PLACED. CALL LIGHT WITHIN REACH. BED ALARM ON. BED ON LOWEST AND LOCKED POSITION, WILL ENDORSE TO INTERN BRANDPOOLROOM TABLE ATTENDANT
[2021-09-27 20:00] VITALS: BP 150/76
[2021-09-27] MEDS: ATORVASTATIN 10 MG TABLET PO SCH (21:40)
[2021-09-28] VITALS: BP 125/69
[2021-09-28 04:00] VITALS: BP 129/72
[2021-09-28] MEDS: IV NS 0.9% 1,000 ML IV PRN (05:10)
[2021-09-28] MEDS: PIPERACILLIN /TAZOBACTAM 3.375 G in IV D5W 50 ML IV SCH ×3 (05:19→17:01)
[2021-09-28 06:32] LABS: BASOPHILS % (AUTO) 0.5 % (0.0-2.0); EOSINOPHILS % (AUTO) 3.8 % (0.0-6.0); HEMATOCRIT 37 % (39-51); HEMOGLOBIN 12.5 g/dL (13.5-17.5); LYMPHOCYTES # (AUTO) 1.2 K/uL (0.8-4.8); LYMPHOCYTES % (AUTO) 19.5 % (20.0-44.0); MEAN CORPUSCULAR HGB CONC 34 g/dl (31.0-36.0); MEAN CORPUSCULAR VOLUME 96 fL (80-96); MONOCYTES # (AUTO) 0.8 K/uL (0.1-1.30); MONOCYTES % (AUTO) 13.5 % (2.0-12.0); NEUTROPHILS # (AUTO) 3.7 K/uL (1.8-8.9); NEUTROPHILS % (AUTO) 62.7 % (43.0-81.0); PLATELET COUNT (AUTO) 311 K/uL (150-450); RED BLOOD CELL COUNT(AUTO) 3.85 MIL/uL (4.5-6.0)
--- NOTE | 2021-09-28 06:51 | NUR ---
RN NOTES, PATIENT AWAKE AT THIS TIME, AT ROOM AIR WITH O2 SAT LEVEL WNL, NO SIGNIFICANT CHANGE OF CONDITION DURING THE NIGHT, BED LOCKED AND LOW POSITION X2 GUARD RAILS, CALL LIGHT W/I REACH, WILL ENDORSE CONTINUITY OF CARE TO ONCOMING NURSE.
[2021-09-28 06:58] LABS: CALCIUM, SERUM 8.9 mg/dL (8.5-10.1); CREATININE 0.8 mg/dL (0.6-1.3); POTASSIUM 4.1 mmol/L (3.5-5.1)
--- NOTE | 2021-09-28 07:22 | NUR ---
RN OPENING NOTES; PT IN BED RESTING. PT A/OX1, RESPONSIVE. NO PAIN OR DISTRESS AT THIS TIME. EVIDENT BY FACIAL EXPRESSIONS. PT SKIN INTACT. RH #24 NOTED, NS @90CC/HR, PATENT, WITH NO REDNESS OR SIGNS OF INFILTRATION. SAFETY MEASURES CHECKED AND RENDERED, BED IN LOWEST POS. LOCKED, SIDE RAILSX3 WITH CALL LIGHT WITHIN REACH. WILL CONTINUE TO MONITOR.
[2021-09-28 08:00] VITALS: BP 166/90
[2021-09-28] MEDS: DOCUSATE SODIUM 100 MG CAPSULE PO SCH (08:01)
[2021-09-28] MEDS: HALOPERIDOL 5 MG TABLET PO SCH ×2 (08:01→16:14)
[2021-09-28] MEDS: AMLODIPINE BESYLATE 10 MG TABLET PO SCH (08:02)
[2021-09-28] MEDS: DIVALPROEX SODIUM 500 MG TABLET.DR PO SCH ×3 (08:02→16:13)
[2021-09-28] MEDS: LEVOTHYROXINE SODIUM 100 MCG TABLET PO SCH (08:02)
[2021-09-28 12:00] VITALS: BP 132/68
[2021-09-28 16:00] VITALS: BP 119/77
--- NOTE | 2021-09-28 18:39 | NUR ---
RN NOTES; PT TO BE D/C TO [facility]. PT IN STABLE CONDITION. VITAL SIGNS TAKEN FOLLOW T 97.5, HR 78, RR 16, BP 119/77. REPORT GIVEN TO COLLETTE ARCE. DC INSTRUCTIONS EXPLAINED AND RN VERBALIZED UNDERSTANDING. ALL PAPERWORK SIGNED, ALL BELONGINGS PACKED AND READY TO BE SENT, INCLUDING ABX ZOSYN. IV ACCESS ON RH #24 INTACT, FLUSHED, PATENT, WITH NO SIGNS OF INFILTRATION. PT CLEAN, DRY AND COMFORTABLE. WAITING FOR AMBULANCE CREW TO SEMICONDUCTOR WAFERS MARKER PT.
--- NOTE | 2021-09-28 18:58 | NUR ---
RN D/C NOTES AMBULANCE CREW ARRIVED. REPORT GIVEN. PT LEFT UNIT IN STABLE CONDITION.
[2021-10-22] MEDS ORDERED: PALIPERIDONE PALMITATE 117 MG/0.75 ML SYRINGE IM SCH (09:00)
== END 2021-09-28 19:00 | DRG 871 ==
LOC: ER 21:16 → TELE1 09-23
PROVIDERS: ADMIT Nurse Practitioner Acute Care; ATTEND Internal Medicine
DX: A41.9 Sepsis, unspecified organism (principal); G93.41 Metabolic encephalopathy; J96.01 Acute respiratory failure with hypoxia; N17.0 Acute kidney failure with tubular necrosis; D68.59 Other primary thrombophilia; N39.0 Urinary tract infection, site not specified; E44.0 Moderate protein-calorie malnutrition; E87.2 Acidosis; Z16.12 Extended spectrum beta lactamase (ESBL) resistance; E78.5 Hyperlipidemia, unspecified; E03.9 Hypothyroidism, unspecified; F03.90 Unspecified dementia, unspecified severity, without behavioral disturbance, psychotic disturbance, mood disturbance, and anxiety; G40.909 Epilepsy, unspecified, not intractable, without status epilepticus; Z20.822 Contact with and (suspected) exposure to COVID-19; D64.9 Anemia, unspecified; Z79.899 Other long term (current) drug therapy; I10 Essential (primary) hypertension; F29 Unspecified psychosis not due to a substance or known physiological condition; Z74.09 Other reduced mobility; I25.10 Atherosclerotic heart disease of native coronary artery without angina pectoris; Z79.890 Hormone replacement therapy; F20.9 Schizophrenia, unspecified; F41.9 Anxiety disorder, unspecified; B96.4 Proteus (mirabilis) (morganii) as the cause of diseases classified elsewhere
CPT/HCPCS: 36415; 71045-TC; 80048-TC; 80053-TC; 80076-TC; 80202-TC; 81001; 83605-TC; 83735-TC; 84100-TC; 84484-TC; 85025-TC; 85730-TC; 87040-TC; 87081-TC; 87086-TC; 87186-TC; 92526; 92611-TC; 97116-TC; 97530-TC; C9803; G0378; J0696; J2543; J3370; J7030; J7050; J7060; U0003

== ENCOUNTER 2021-12-23 22:20 | Inpatient (IN) | payer MEDICARE, OTHER ==
[~2021-12-23] VITALS: Ht 185.4 cm; Wt 82.1 kg
[~2021-12-23 22:20] MED LIST changes: +ACET-868 PO; -AZIT250T13 PO; +CRAN425C6 PO; -DEXA4TAB PO
--- NOTE | 2021-12-23 23:15 | NUR ---
SAMY FROM [facility] C/O FEVER TEMP 100.5. SCHEDULING ADMINISTRATOR TOOK TYLENOL 650MG @ 1730 UPON TRIAGE TEMP 98.5. PATIENT ALERT AND ORIENTED X1. PLACED IN BED 02 ON MONITOR AND POX.
--- NOTE | 2021-12-23 23:18 | NUR ---
XRAY AT BEDSIDE
--- NOTE | 2021-12-23 23:29 | NUR ---
BLOOD COLLECTED AND SENT TO LAB
--- NOTE | 2021-12-23 23:32 | NUR ---
URINE COLLECTED AND SENT TO LAB
[2021-12-23 23:49] LABS: BASOPHILS % (AUTO) 0.3 % (0.0-2.0); EOSINOPHILS % (AUTO) 0.3 % (0.0-6.0); HEMATOCRIT 39 % (39-51); HEMOGLOBIN 12.8 g/dL (13.5-17.5); LYMPHOCYTES # (AUTO) 1.3 K/uL (0.8-4.8); LYMPHOCYTES % (AUTO) 10.7 % (20.0-44.0); MEAN CORPUSCULAR HGB CONC 33 g/dl (31.0-36.0); MEAN CORPUSCULAR VOLUME 97 fL (80-96); MONOCYTES # (AUTO) 1.1 K/uL (0.1-1.30); MONOCYTES % (AUTO) 8.6 % (2.0-12.0); NEUTROPHILS # (AUTO) 9.8 K/uL (1.8-8.9); NEUTROPHILS % (AUTO) 80.1 % (43.0-81.0); PLATELET COUNT (AUTO) 202 K/uL (150-450); WHITE BLOOD COUNT (AUTO) 12.2 K/uL (4.3-11.0)
[2021-12-23 23:56] LABS: BILIRUBIN,URINE NEGATIVE (NEGATIVE); COLOR,URINE YELLOW (YELLOW); LEUKOCYTE ESTERASE ,URINE MODERATE (NEGATIVE); NITRITE, URINE POSITIVE (NEGATIVE); PROTEIN,URINE 30 mg/dl (NEGATIVE); UGLUCOSE NEGATIVE (NEGATIVE); UROBILINOGEN,URINE 0.2 EU/dL (0.2)
[2021-12-23 23:59] LABS: CALCIUM, SERUM 9.1 mg/dL (8.5-10.1); CARBON DIOXIDE 28 mmol/L (21-32); CHLORIDE 108 mmol/L (98-107); CREATININE 1.2 mg/dL (0.6-1.3); GLUCOSE 107 mg/dL (74-106); POTASSIUM 4.4 mmol/L (3.5-5.1); SODIUM SERUM 142 mmol/L (136-145); UREA NITROGEN, BLOOD 16 mg/dL (7-18)
[2021-12-24 00:17] LABS: ALANINE AMINOTRANSFERASE 20 U/L (12-78); ALKALINE PHOSPHATASE 94 U/L (46-116); ASPARTATE AMINOTRANSFERASE 47 U/L (15-37); BILIRUBIN,DIRECT 0.1 mg/dL (0.0-0.2); BILIRUBIN,TOTAL 0.6 mg/dL (0.2-1.0); TOTAL PROTEIN, SERUM 7.6 g/dL (6.4-8.2)
--- NOTE | 2021-12-24 00:32 | NUR ---
[facility] ETA 30 MIN
--- NOTE | 2021-12-24 00:46 | NUR ---
REPORT GIVEN TO COLLETTE ARCE FOR [facility] AT THE [facility]
--- NOTE | 2021-12-24 00:51 | NUR ---
EPIC PANEL PAGED
[2021-12-24] MEDS ORDERED: CEFTRIAXONE 1GM BAG (ER ONLY) 50 ML IV ONE (00:58)
[2021-12-24] MEDS ORDERED: AZITHROMYCIN 500 MG VIAL ONE (00:58)
[2021-12-24] MEDS ORDERED: CEFTRIAXONE 1GM BAG (ER ONLY) 1 GM/50 ML PIGGYBACK IV ONE (01:00)
[2021-12-24] MEDS ORDERED: AZITHROMYCIN 500 MG in IV D5W 250 ML IV ONE (01:00)
[2021-12-24] MEDS ORDERED: CIPROFLOXACIN HCL 500 MG TABLET PO ONE (01:00)
--- NOTE | 2021-12-24 01:09 | NUR ---
COVID ANTIGEN AND PCR SWAB COLLECTED AND SENT TO LAB
[2021-12-24] MEDS ORDERED: MAG HYDROX/AL HYDROX/SIMETH 30 ML UDC PO PRN (02:00)
[2021-12-24] MEDS ORDERED: Z GUARD REMEDY 4 OZ OINT TP PRN (02:00)
[2021-12-24] MEDS ORDERED: ACETAMINOPHEN 325 MG TABLET PO PRN (02:00)
[2021-12-24] MEDS ORDERED: ZOLPIDEM TARTRATE 5 MG TABLET PO PRN (02:00)
[2021-12-24] MEDS ORDERED: ONDANSETRON HCL/PF 4 MG/2 ML VIAL IVP PRN (02:00)
[2021-12-24] MEDS ORDERED: MAGNESIUM HYDROXIDE 30 ML UDC PO PRN ×2 (02:00→12:30)
[2021-12-24] MEDS ORDERED: PANTOPRAZOLE 40 MG TABLET.DR PO ONE (07:58)
[2021-12-24] MEDS: PANTOPRAZOLE 40 MG TABLET.DR PO SCH (07:59)
[2021-12-24 08:11] LABS: BACTERIA,URINE Moderate /HPF (None Seen); SQUAMOUS EPITHELIAL CELL,UR None Seen /HPF (None Seen); WBC,URINE 51-80 /HPF (0-3)
--- NOTE | 2021-12-24 10:59 | NUR ---
ROOM 105
--- NOTE | 2021-12-24 11:05 | NUR ---
CALLED FOR REPORT, PER CHARGE NURSE, WILL CLARIFY ADMISSION FROM HOUSE SUP
--- NOTE | 2021-12-24 12:21 | NUR ---
REPORT GIVEN TO OMARI MURDOCK OF [facility]
[2021-12-24] MEDS ORDERED: BISACODYL SUPP (10 MG) 10 MG/SUPP.RECT SUPP.RECT RC PRN (12:30)
[2021-12-24] MEDS ORDERED: NA PHOS,M-B/NA PHOS,DI-BA 1 EA ENEMA RC PRN (12:30)
[2021-12-24] MEDS: DIVALPROEX SODIUM 500 MG TABLET.DR PO SCH ×2 (15:01→16:56)
[2021-12-24] MEDS: ENOXAPARIN SODIUM 40 MG/0.4 ML DISP.SYRIN SQ SCH (15:01)
[2021-12-24] MEDS: HALOPERIDOL 5 MG TABLET PO SCH (16:56)
[2021-12-24] MEDS: BENZTROPINE MESYLATE (1 MG) 1 MG TABLET PO SCH (16:57)
--- NOTE | 2021-12-24 19:00 | NUR ---
RN NOTE RECEIVED PATIENT IN BED RESTING ALERT ORIENTED 2-3 VERBALLY RESPONSIVE ON ROOM AIR O2:97% IV SITE IS ON LEFT AC INTACT PATENT,INCONTINENT BOWEL/BLADDER,SAFETY MEASURE IMPLEMENT BED IN LOW POSITION AND LOCKED,BED ALARM IS ON,HEAD OF THE BED ELEVATED,CALL LIGHT WITHIN REACH CONTINUE TO MONITOR.
[2021-12-24 20:00] VITALS: BP 127/77
[2021-12-24] MEDS: CEFTRIAXONE 1 G in IV D5W 50 ML IV SCH (20:23)
[2021-12-24] MEDS: AZITHROMYCIN 500 MG in IV D5W 250 ML IV SCH (20:57)
[2021-12-25] VITALS: BP 102/64
[2021-12-25 04:00] VITALS: BP 103/60
--- NOTE | 2021-12-25 06:38 | NUR ---
RN NOTE PATIENT REMAINS ON ALERT ORIENTED X2-3 VERBALLY ON ROOM AIR NO SOB NOT ACUTE DISTRESS NOTED ALL DUE MEDS GIVEN MD ORDERED KEPT CLEAN AND DRY ALL THE TIME,KEPT COMFORTABLE ALL NEEDS MET ENDORSE NEXT COMING SHIFT FOR CONTINUATION OF CARE.
[2021-12-25 06:46] LABS: BASOPHILS % (AUTO) 0.3 % (0.0-2.0); EOSINOPHILS % (AUTO) 2.9 % (0.0-6.0); HEMATOCRIT 36 % (39-51); LYMPHOCYTES # (AUTO) 0.8 K/uL (0.8-4.8); LYMPHOCYTES % (AUTO) 12.1 % (20.0-44.0); MEAN CORPUSCULAR HGB CONC 34 g/dl (31.0-36.0); MEAN CORPUSCULAR VOLUME 97 fL (80-96); MONOCYTES # (AUTO) 0.5 K/uL (0.1-1.30); MONOCYTES % (AUTO) 8.2 % (2.0-12.0); NEUTROPHILS # (AUTO) 5.2 K/uL (1.8-8.9); NEUTROPHILS % (AUTO) 76.5 % (43.0-81.0); PLATELET COUNT (AUTO) 197 K/uL (150-450); WHITE BLOOD COUNT (AUTO) 6.7 K/uL (4.3-11.0)
[2021-12-25 07:16] LABS: CALCIUM, SERUM 8.5 mg/dL (8.5-10.1); CREATININE 0.9 mg/dL (0.6-1.3); MAGNESIUM 1.8 mg/dL (1.8-2.4); PHOSPHORUS 3.3 mg/dL (2.5-4.9); POTASSIUM 4.1 mmol/L (3.5-5.1)
--- NOTE | 2021-12-25 07:30 | NUR ---
RN OPENING NOTE RECEIVED PATIENT IN BED AWAKE, ALERT ORIENTED 2-3 VERBALLY RESPONSIVE ON ROOM AIR SATURATING WELL, NO S/SX OF ACUTE DISTRESS NOTED. IV ACCESS ON LEFT AC INTACT PATENT,INCONTINENT BOWEL/BLADDER,SAFETY MEASURE IN PLACE: BED IN LOW POSITION AND LOCKED,BED ALARM IS ON,HEAD OF THE BED ELEVATED,CALL LIGHT WITHIN REACH CONTINUE TO MONITOR PATIENT ACCORDINGLY.
[2021-12-25] MEDS: PANTOPRAZOLE 40 MG TABLET.DR PO SCH (07:56)
[2021-12-25] MEDS: LEVOTHYROXINE SODIUM 100 MCG TABLET PO SCH (07:56)
[2021-12-25 08:00] VITALS: BP 115/72
[2021-12-25] MEDS: DOCUSATE SODIUM 100 MG CAPSULE PO SCH (08:52)
[2021-12-25] MEDS: DIVALPROEX SODIUM 500 MG TABLET.DR PO SCH ×3 (08:52→16:06)
[2021-12-25] MEDS: HALOPERIDOL 5 MG TABLET PO SCH ×2 (08:52→16:05)
[2021-12-25] MEDS: ATORVASTATIN 10 MG TABLET PO SCH (08:52)
[2021-12-25] MEDS: BENZTROPINE MESYLATE (1 MG) 1 MG TABLET PO SCH ×2 (08:52→16:05)
[2021-12-25] MEDS: AMLODIPINE BESYLATE 10 MG TABLET PO SCH (08:53)
[2021-12-25] MEDS: ENOXAPARIN SODIUM 40 MG/0.4 ML DISP.SYRIN SQ SCH (08:54)
--- NOTE | 2021-12-25 18:40 | NUR ---
RN CLOSING NOTE PATIENT IN BED AWAKE, ALERT ORIENTED 2-3 VERBALLY RESPONSIVE. ON ROOM AIR SATURATING WELL, NO S/SX OF ACUTE DISTRESS NOTED. IV ACCESS ON LEFT AC INTACT PATENT,INCONTINENT BOWEL/BLADDER,SAFETY MEASURE IN PLACE: BED IN LOW POSITION AND LOCKED,BED ALARM IS ON,HEAD OF THE BED ELEVATED,CALL LIGHT WITHIN REACH. ALL NEEDS ATTENDED AND MET. DUE MEDS GIVEN ORDERED. WILL ENDORSE TO ONCOMING SHIFT FOR NAKIA.
--- NOTE | 2021-12-25 19:34 | NUR ---
RN NOTES RECEIVED PT FOR CONTINUITY OF CARE. PATIENT A/OX2-3 IN BED RESTING COMFORTABLY IN NO S/SX OF ACUTE DISTRESS AT THIS TIME; CURRENTLY ON ROOM AIR WITH 02 SAT OF 95% AT THIS TIME. NO FLUIDS RUNNING. WILL ENSURE SAFETY MEASURES WITHIN THE SHIFT. PATIENT BED ALARM IS ON. HEAD OF BED ELEVATED. BED IS LOCKED, IN LOWEST POSITION AND SIDE RAILS UP. CALL LIGHT WITHIN REACH OF THE PATIENT. APPLICABLE ISOLATION PRECAUTIONS IN PLACE. WILL CONTINUE TO MONITOR AND REASSESS FOR ANY CHANGES AND WILL CARRY OUT ANY ONGOING AND ACTIVE MD ORDER.
[2021-12-25 20:00] VITALS: BP 116/68
[2021-12-25] MEDS: CEFTRIAXONE 1 G in IV D5W 50 ML IV SCH (21:19)
[2021-12-25] MEDS: AZITHROMYCIN 500 MG in IV D5W 250 ML IV SCH (21:22)
[2021-12-26 04:00] VITALS: BP 123/71
--- NOTE | 2021-12-26 04:00 | NUR ---
RN NOTES NO NOTED CHANGES IN PATIENT CONDITION AT THIS TIME; PATIENT VITALS STABLE, NO SIGNS OF ACUTE RESPIRATORY DISTRESS. AM PATIENT CARE RENDERED AND TURNING AND REPOSITIONING DONE Q2H.WILL CONTINUE TO MONITOR AND REASSESS FOR ANY CHANGES THROUGHOUT THE SHIFT.
--- NOTE | 2021-12-26 06:22 | NUR ---
RN CLOSING NOTE: PATIENT REMAINS IN ROOM IN NO SIGNS OF RESPIRATORY DISTRESS, PATIENT STILL ON ROOM AIR;TOLERATING WELL SATURATING @ >95% SP02. SAFETY MEASURES IMPLEMENTED, BED IN LOWEST POSITION, LOCKED, SIDE RAILS UP, CALL LIGHT WITHIN REACH. ALL NEEDS AND ORDERS ADDRESSED DURING THE SHIFT. IV ACCESS MAINTAINED INTACT, SECURED AND FLUSHING WELL. ALL DUE MEDS GIVEN ORDERED & SCHEDULED ; PATIENT TOLERATED WELL. PATIENT KEPT CLEAN AND COMFORTABLE WITHIN THE SHIFT. PATIENT ENDORSED TO INCOMING SHIFT RN WITH STABLE VITAL SIGN AND FOR CONTINUITY OF CARE.
--- NOTE | 2021-12-26 07:30 | NUR ---
MS RN AM NOTES PT IN BED, A/OX2-3, RESTING COMFORTABLY, ABLE TO MAKE NEEDS KNOWN, FOLLOW COMMANDS, ROOM AIR, O2 SAT >95%, RESPIRATION UNLABORED, IV ACCESS TO LEFT HAND 20G, FLUSHES WELL, SITE CLEAR, BED BOUND, NO SKIN ISSUES, SAFETY MEASURES IN PLACE, PATIENT BED ALARM IS ON. HEAD OF BED ELEVATED. BED IS LOCKED, IN LOWEST POSITION AND SIDE RAILS UP. CALL LIGHT WITHIN REACH OF THE PATIENT. APPLICABLE ISOLATION PRECAUTIONS IN PLACE. WILL CONTINUE TO MONITOR AND REASSESS FOR ANY CHANGES AND WILL CARRY OUT ANY ONGOING AND ACTIVE MD ORDER.
[2021-12-26] MEDS: PANTOPRAZOLE 40 MG TABLET.DR PO SCH (07:53)
[2021-12-26] MEDS: LEVOTHYROXINE SODIUM 100 MCG TABLET PO SCH (07:54)
[2021-12-26 08:00] VITALS: BP 121/70
[2021-12-26] MEDS: ENOXAPARIN SODIUM 40 MG/0.4 ML DISP.SYRIN SQ SCH (08:58)
[2021-12-26] MEDS: BENZTROPINE MESYLATE (1 MG) 1 MG TABLET PO SCH ×2 (08:59→16:13)
[2021-12-26] MEDS: AMLODIPINE BESYLATE 10 MG TABLET PO SCH (09:00)
[2021-12-26] MEDS: DIVALPROEX SODIUM 500 MG TABLET.DR PO SCH ×3 (09:00→16:13)
[2021-12-26] MEDS: DOCUSATE SODIUM 100 MG CAPSULE PO SCH (09:00)
[2021-12-26] MEDS: HALOPERIDOL 5 MG TABLET PO SCH ×2 (09:00→16:14)
[2021-12-26] MEDS: ATORVASTATIN 10 MG TABLET PO SCH (09:01)
--- NOTE | 2021-12-26 09:30 | NUR ---
RN NOTES DUE MEDS GIVEN
[2021-12-26 12:00] VITALS: BP 121/70
--- NOTE | 2021-12-26 12:21 | NUR ---
RN NOTES [facility] REPORT - BLOOD CULTURE GRAM POSITIVE COCCI IN CLUSTERS. DR. KAUFMAN NOTIFIED
--- NOTE | 2021-12-26 12:30 | NUR ---
RN NOTES NEW ORDERS RECEIVED FROM DR. KAUFMAN TO START VANCOMYCIN IV AND PHARMCACY TO DOSE.
[2021-12-26] MEDS: VANCOMYCIN 1.25 GM in IV D5W 250 ML IV SCH (13:41)
[2021-12-26 16:00] VITALS: BP 122/68
--- NOTE | 2021-12-26 18:30 | NUR ---
MS RN closing notes PATIENT IN BED AWAKE, ALERT ORIENTED 2-3 VERBALLY RESPONSIVE. ON ROOM AIR SATURATING WELL, NO S/SX OF ACUTE DISTRESS NOTED. IV ACCESS ON LEFT AC INTACT PATENT,INCONTINENT BOWEL/BLADDER,SAFETY MEASURE IN PLACE: BED IN LOW POSITION AND LOCKED,BED ALARM IS ON,HEAD OF THE BED ELEVATED,CALL LIGHT WITHIN REACH. ALL NEEDS ATTENDED AND MET. DUE MEDS GIVEN ORDERED. WILL ENDORSE TO ONCOMING SHIFT FOR NAKIA.
[2021-12-26 20:00] VITALS: BP 106/62
--- NOTE | 2021-12-26 20:00 | NUR ---
MS RN NOTE PT IN BED AWAKE. A/O X 2 -3. NO SOB, NO DISTRESS OR DISCOMFORT NOTED. DENIES PAIN. LAC SL 22 G INTACT AND PATENT. NO S/S OF INFILTRATION NOTED. KEPT HIM DRY AND CLEAN. BED ALARM ON. SIDE RAILS UP X 2 AND CALL LIGHT WITHIN REACH. VSS. CONTINUE TO MONITOR HIM.
[2021-12-26] MEDS ORDERED: CEFEPIME 1 GM VIAL ONE (21:51)
[2021-12-26] MEDS: CEFEPIME 1 GM in IV D5W 50 ML IV SCH (21:55)
[2021-12-27] MEDS: VANCOMYCIN 1.25 GM in IV D5W 250 ML IV SCH ×2 (01:29→12:55)
[2021-12-27 04:00] VITALS: BP 122/74
--- NOTE | 2021-12-27 06:40 | NUR ---
MS RN NOTE NO CHANGE IN CONDITION. PT IN BED ASLEEP, AROUSABLE. NO DISTRESS OR DISCOMFORT NOTED. DENIES PAIN. WILL ENDORSE TO DAY SHIFT NURSE FOR CONTINUE TO CARE.
[2021-12-27 07:00] LABS: CALCIUM, SERUM 9.1 mg/dL (8.5-10.1); CREATININE 0.8 mg/dL (0.6-1.3); POTASSIUM 4.1 mmol/L (3.5-5.1)
[2021-12-27] MEDS: LEVOTHYROXINE SODIUM 100 MCG TABLET PO SCH (07:56)
[2021-12-27] MEDS: PANTOPRAZOLE 40 MG TABLET.DR PO SCH (07:56)
[2021-12-27 08:00] VITALS: BP 115/69
[2021-12-27] MEDS: DOCUSATE SODIUM 100 MG CAPSULE PO SCH (08:06)
[2021-12-27] MEDS: DIVALPROEX SODIUM 500 MG TABLET.DR PO SCH ×3 (08:06→16:33)
[2021-12-27] MEDS: HALOPERIDOL 5 MG TABLET PO SCH ×2 (08:07→16:33)
[2021-12-27] MEDS: ATORVASTATIN 10 MG TABLET PO SCH (08:07)
[2021-12-27] MEDS: BENZTROPINE MESYLATE (1 MG) 1 MG TABLET PO SCH ×2 (08:07→16:33)
[2021-12-27] MEDS: CEFEPIME 1 GM in IV D5W 50 ML IV SCH ×2 (08:11→21:39)
[2021-12-27] MEDS: AMLODIPINE BESYLATE 10 MG TABLET PO SCH (08:17)
[2021-12-27] MEDS: ENOXAPARIN SODIUM 40 MG/0.4 ML DISP.SYRIN SQ SCH (08:19)
[2021-12-27] MEDS ORDERED: CEFE1FRO IV (08:19)
--- NOTE | 2021-12-27 09:30 | NUR ---
RN NOTES DUE MEDS GIVEN
[2021-12-27 16:00] VITALS: BP 123/52
--- NOTE | 2021-12-27 18:24 | NUR ---
MS RN CLOSING NOTES PT IN BED, A/OX2-3, RESTING COMFORTABLY, ABLE TO MAKE NEEDS KNOWN, FOLLOW COMMANDS, ROOM AIR, O2 SAT >95%, RESPIRATION UNLABORED, IV ACCESS TO LEFT HAND 20G, FLUSHES WELL, SITE CLEAR, BED BOUND, NO SKIN ISSUES, SAFETY MEASURES IN PLACE, PATIENT BED ALARM IS ON. HEAD OF BED ELEVATED. BED IS LOCKED, IN LOWEST POSITION AND SIDE RAILS UP. CALL LIGHT WITHIN REACH OF THE PATIENT. APPLICABLE ISOLATION PRECAUTIONS IN PLACE. ALL NEEDS MET. ASSISTED WITH TURNING AND REPOSITIONING. PM CARE DONE EARLIER. NO OTHER SIGNIFICANT CHANGE IN CONDITION. WILL ENDORSE TO NEXT SHIFT FOR NAKIA.
--- NOTE | 2021-12-27 19:50 | NUR ---
RN NOTES RECEIVED CARE OF PATIENT WHILE PATIENT IN BED, A/O X2-3, ABLE TO VERBALIZE NEEDS. PATIENT EXPRESSES NO DISCOMFORT OR PAIN AT THIS TIME. PATIENT ON ROOM AIR, O2 SAT 96%, BREATHING EVEN AND UNLABORED, NO SOB NOTED. IV ACCESS ON LEFT AC 20G, FLUSHES WELL, SITE CLEAR.NO SIGNIFICANT FINDINGS UPON INITIAL NURSING ASSESSMENTS. SAFETY MEASURES IN PLACE, PATIENT BED ALARM IS ON. HEAD OF BED ELEVATED. BED IS LOCKED, IN LOWEST POSITION AND SIDE RAILS UP. CALL LIGHT WITHIN REACH OF THE PATIENT. WILL CONTINUE TO MONITOR.
[2021-12-27 20:00] VITALS: BP 139/50
[2021-12-28 04:00] VITALS: BP 140/77
[2021-12-28 07:07] LABS: CALCIUM, SERUM 8.8 mg/dL (8.5-10.1); CREATININE 0.8 mg/dL (0.6-1.3); POTASSIUM 4.3 mmol/L (3.5-5.1)
--- NOTE | 2021-12-28 07:23 | NUR ---
RN CLOSING NOTES ENDORSED CARE OF PATIENT TO AM NURSE IN STABLE CONDITIONS. PATIENT REMAINS IN BED,A/O X3, ABLE TO VERBALIZE NEEDS. ON ROOM AIR, NO RESPIRATORY ISSUES NOTED THROUGHOUT SHIFT. NO SIGNIFICANT FINDINGS UPON ALL NURSING ASSESSMENTS. ALL NEEDS ATTENDED TO. ALL DUE MEDS GIVEN. BED IS LOCKED IN LOWEST POSITION AND ALL HOSPITAL PRECAUTIONS ARE IN PLACE. ENDORSED TO AM NURSE FOR NAKIA.
--- NOTE | 2021-12-28 08:00 | NUR ---
FURNITURE ASSEMBLER AND INSTALLER NOTE PATIENT IN BED , AWAKE ALERT , WITH CONFUSION , ON RA NO SOB NOTED AT THIS TIME, SATURATION 98%,, LT AC HL INTACT AND FLUSHED WELL , BED IN LOWEST AND LOCKED POSITION, WILL CONT TO MONITOR CLOSELY
[2021-12-28] MEDS ORDERED: CEPH750C9 PO (08:41)
--- NOTE | 2021-12-28 09:00 | NUR ---
ms rn notes patient has order to discharge to SNF, charge nurse and showcase trimmer notified
[2021-12-28] MEDS: DIVALPROEX SODIUM 500 MG TABLET.DR PO SCH (09:06)
[2021-12-28] MEDS: BENZTROPINE MESYLATE (1 MG) 1 MG TABLET PO SCH (09:07)
[2021-12-28] MEDS: ATORVASTATIN 10 MG TABLET PO SCH (09:07)
[2021-12-28] MEDS: HALOPERIDOL 5 MG TABLET PO SCH (09:08)
[2021-12-28] MEDS: LEVOTHYROXINE SODIUM 100 MCG TABLET PO SCH (09:08)
[2021-12-28] MEDS: AMLODIPINE BESYLATE 10 MG TABLET PO SCH (09:08)
[2021-12-28] MEDS: DOCUSATE SODIUM 100 MG CAPSULE PO SCH (09:08)
[2021-12-28] MEDS: PANTOPRAZOLE 40 MG TABLET.DR PO SCH (09:09)
[2021-12-28] MEDS: CEFEPIME 1 GM in IV D5W 50 ML IV SCH (09:09)
[2021-12-28] MEDS: ENOXAPARIN SODIUM 40 MG/0.4 ML DISP.SYRIN SQ SCH (09:19)
[2021-12-28 09:37] VITALS: BP 115/73
--- NOTE | 2021-12-28 10:30 | NUR ---
ms rn note called to snf ,report given to Sonia nevarez ,endorsed care to juan nevarez
--- NOTE | 2021-12-28 11:08 | NUR ---
RN NOTES CALLED AND SPOKE WITH PATIENT'S BROTHER ZION, MADE AWARE OF THE TRANSFER OF PATIENT TO SNF ESTIMATED TIME OF WRITING TUTOR AY 1300.
--- NOTE | 2021-12-28 12:05 | NUR ---
RN NOTES TRANSPORTATION AMBULANCE CAME TO PHOTOGRAPHIC MACHINE OPERATOR PATIENT. GAVE REPORT PRIOR TO PATIENT TRANSFER. MADE AWARE GAVE REPORT TO KARL FROM THE SNF WHERE PATIENT IS GOING TO.
--- NOTE | 2021-12-28 12:26 | NUR ---
RN NOTES PATIENT TRANSFERRED TO SNF VIA GURNEY IN STABLE CONDITION WITH TRANSPORT.
== END 2021-12-28 19:08 | DRG 871 ==
LOC: ER 22:31 → TRANSITION 12-24 05:32 → TELE1 12-24 11:02 → MEDSG1 12-25 07:57
PROVIDERS: ADMIT Internal Medicine; ATTEND Internal Medicine
DX: A41.9 Sepsis, unspecified organism (principal); E43 Unspecified severe protein-calorie malnutrition; J15.6 Pneumonia due to other Gram-negative bacteria; G92.8 Other toxic encephalopathy; N39.0 Urinary tract infection, site not specified; E03.9 Hypothyroidism, unspecified; F03.90 Unspecified dementia, unspecified severity, without behavioral disturbance, psychotic disturbance, mood disturbance, and anxiety; I10 Essential (primary) hypertension; B96.20 Unspecified Escherichia coli [E. coli] as the cause of diseases classified elsewhere; Z20.822 Contact with and (suspected) exposure to COVID-19; G40.909 Epilepsy, unspecified, not intractable, without status epilepticus; E78.5 Hyperlipidemia, unspecified; D64.9 Anemia, unspecified; Z79.899 Other long term (current) drug therapy; E86.0 Dehydration; I25.10 Atherosclerotic heart disease of native coronary artery without angina pectoris; Z66 Do not resuscitate; Y95 Nosocomial condition; E88.09 Other disorders of plasma-protein metabolism, not elsewhere classified; F20.9 Schizophrenia, unspecified; Z79.890 Hormone replacement therapy; F41.9 Anxiety disorder, unspecified; F09 Unspecified mental disorder due to known physiological condition
CPT/HCPCS: 36415; 71045-TC; 80048-TC; 80076-TC; 80202-TC; 81001; 83605-TC; 83735-TC; 83880; 84100-TC; 84484-TC; 85025-TC; 85730-TC; 87040-TC; 87081-TC; 87086-TC; 87186-TC; C9803; G0378; J0456; J0692; J0696; J1650; J3370; J7040; J7050; J7060; U0003

== ENCOUNTER 2022-04-05 21:12 | Inpatient (IN) | payer MEDICARE, OTHER ==
[~2022-04-05] VITALS: Ht 185.4 cm; Wt 73.0 kg
[~2022-04-05 21:12] MED LIST changes: +CEPH750C9 PO
--- NOTE | 2022-04-05 21:30 | NUR ---
[facility]TA[facility] AND LESS ENGAGED WITH STAFF WEAKNESS X 1 DAY. PT AWAKE AND NONVERBAL AT THIS TIME. DOES NOT FOLLOW DIRECTIONS. ON O2 5LPM VIA V/C TOLERATING WELL WITH NO SOB. CONNECTED PT TO POX AND MONITOR.
--- NOTE | 2022-04-05 21:53 | NUR ---
RAC #20G S/L; BLOOD COLLECTED AND SENT TO LAB
[2022-04-05 22:20] LABS: BASOPHILS % (AUTO) 0.1 % (0.0-2.0); EOSINOPHILS % (AUTO) 0.1 % (0.0-6.0); HEMATOCRIT 40 % (39-51); HEMOGLOBIN 13.3 g/dL (13.5-17.5); LYMPHOCYTES # (AUTO) 0.5 K/uL (0.8-4.8); LYMPHOCYTES % (AUTO) 7.2 % (20.0-44.0); MEAN CORPUSCULAR HGB CONC 34 g/dl (31.0-36.0); MEAN CORPUSCULAR VOLUME 96 fL (80-96); MONOCYTES # (AUTO) 0.8 K/uL (0.1-1.30); MONOCYTES % (AUTO) 10.6 % (2.0-12.0); PLATELET COUNT (AUTO) 115 K/uL (150-450); RED BLOOD CELL COUNT(AUTO) 4.17 MIL/uL (4.5-6.0); WHITE BLOOD COUNT (AUTO) 7.3 K/uL (4.3-11.0)
--- NOTE | 2022-04-05 22:59 | NUR ---
CAME BACK FROM CT
[2022-04-05 23:02] LABS: CALCIUM, SERUM 9.6 mg/dL (8.5-10.1); CARBON DIOXIDE 32 mmol/L (21-32); CHLORIDE 109 mmol/L (98-107); CREATININE 1.1 mg/dL (0.6-1.3); GLUCOSE 117 mg/dL (74-106); POTASSIUM 4.6 mmol/L (3.5-5.1); SODIUM SERUM 145 mmol/L (136-145); UREA NITROGEN, BLOOD 23 mg/dL (7-18)
[2022-04-05 23:05] LABS: SERUM AMMONIA < 10 umol/L (11-32)
[2022-04-05 23:08] LABS: ALANINE AMINOTRANSFERASE 40 U/L (12-78); ALKALINE PHOSPHATASE 110 U/L (46-116); ASPARTATE AMINOTRANSFERASE 94 U/L (15-37); BILIRUBIN,DIRECT 0.1 mg/dL (0.0-0.2); BILIRUBIN,TOTAL 0.4 mg/dL (0.2-1.0); TOTAL PROTEIN, SERUM 7.5 g/dL (6.4-8.2)
--- NOTE | 2022-04-05 23:17 | NUR ---
URINE COLLECTED. SENT TO LAB
[2022-04-05 23:41] LABS: BILIRUBIN,URINE NEGATIVE (NEGATIVE); COLOR,URINE YELLOW (YELLOW); LEUKOCYTE ESTERASE ,URINE NEGATIVE (NEGATIVE); PROTEIN,URINE NEGATIVE (NEGATIVE); UGLUCOSE NEGATIVE (NEGATIVE); UROBILINOGEN,URINE 0.2 EU/dL (0.2)
[2022-04-05 23:42] LABS: NITRITE, URINE NEGATIVE (NEGATIVE)
[2022-04-06] MEDS ORDERED: CEFEPIME 1 GM in IV D5W 50 ML IV SCH ×2
[2022-04-06] MEDS ORDERED: CEFTRIAXONE 1 G in IV D5W 50 ML IV ONE ×2
[2022-04-06] MEDS ORDERED: MAG HYDROX/AL HYDROX/SIMETH 30 ML UDC PO PRN
[2022-04-06] MEDS ORDERED: Z GUARD REMEDY 4 OZ OINT TP PRN
[2022-04-06] MEDS ORDERED: AZITHROMYCIN 500 MG in IV D5W 250 ML IV ONE ×2
[2022-04-06] MEDS ORDERED: ACETAMINOPHEN 325 MG TABLET PO PRN
[2022-04-06] MEDS ORDERED: ONDANSETRON HCL/PF 4 MG/2 ML VIAL IVP PRN
[2022-04-06] MEDS ORDERED: HYDROCODONE/APAP 5/325MG TABLET PO PRN
[2022-04-06] MEDS ORDERED: MAGNESIUM HYDROXIDE 30 ML UDC PO PRN
--- NOTE | 2022-04-06 00:04 | NUR ---
COVID ANTIGEN SWAB COLLECTED AND SENT TO LAB
--- NOTE | 2022-04-06 00:47 | NUR ---
MRSA SWAB COLLECTED AND SENT TO LAB. PATIENT'S BELONGINGS LIST DONE.
--- NOTE | 2022-04-06 02:59 | NUR ---
BED 112-1
[2022-04-06] MEDS ORDERED: VANCOMYCIN 1 GM in IV D5W 250ml IV ONE (03:30)
--- NOTE | 2022-04-06 04:00 | NUR ---
REPORT GIVEN TO ADAIR MURDOCK
--- NOTE | 2022-04-06 04:24 | NUR ---
PATIENT TRANSFERRED UNDER ACLS
--- NOTE | 2022-04-06 04:40 | NUR ---
poultry service technician notes Received Pt from ER nurse COLLETTE Jaime. Pt is alert and orientedX1 and able to make needs known. Pt looks lethargic and cool to touch. On 10 L simple mask. O2 sat is 94 and dropped to 80%. Informed MD. RT at the bedside. Charge nurse is aware and informed. Iv site at RAC# 20 is clean, intact, flushes easily and SL. Tele monitor showed SR. Skin assessment is done and performed. Pictures are taken. Pt's belonging was checked by NIEVES Dupont. Safety precautions is maintained. Bed at low position, brakes locked, side rails upX3, hob elevated, bed alarm is on and call light is within reach. Will continue to monitor.
--- NOTE | 2022-04-06 04:41 | NUR ---
RN notes RT at the bedside. Warm blanket is applied.
[2022-04-06] MEDS: ENOXAPARIN SODIUM 30 MG/0.3 ML DISP.SYRIN SQ SCH ×2 (04:59→21:57)
[2022-04-06 05:00] VITALS: BP 107/69
[2022-04-06] MEDS ORDERED: VANCOMYCIN 1 GM VIAL ONE (05:04)
[2022-04-06] MEDS ORDERED: CEFEPIME 1 GM VIAL ONE (05:12)
[2022-04-06] MEDS: IV NS 0.9% 1,000 ML IV PRN ×2 (05:25→20:38)
--- NOTE | 2022-04-06 05:50 | NUR ---
RN notes Pt arrived at the unit with simple mask 10 L with O2 sat was 94% and drop to 80%. Informed and notified Dr. Kilpatrick. ordered to have RT at the bedside. Called RT ( Alona and Yfn). Rt's suctioned Pt oral and thru nasal. Pt has a lot of secretion. Pt is now on venturi mask 12 L 45% with O2 sat is 88-92%. Pt is not in resp. distress. Pt is able to communicate verbally. MD is aware and informed.
--- NOTE | 2022-04-06 06:00 | NUR ---
RN notes O2 sat is 91%. No SOB. No S/S of distress noted
--- NOTE | 2022-04-06 06:22 | NUR ---
RN notes O2 sat is 94%.
--- NOTE | 2022-04-06 06:30 | NUR ---
RN closing notes Pt is resting in bed comfortably. Pt is alert and orientedX1, able to make needs known. On venturi mask 12 L 45% with O2 sat is 94%. Suctioned PRN. IV site at RAC# 20 is clean, intact and infusing well NS@ 75 ml/hr. Tele monitor showed SR hr at 92. Routine meds were given as ordered. Kept Pt clean, dry and comfortable. Safety precautions is maintained. Bed at low position, brakes locked, side rails upX3, hob elevated, bed alarm is on and call light is within reach. Will endorse to am nurse for NAKIA.
[2022-04-06] MEDS: PANTOPRAZOLE 40 MG TABLET.DR PO SCH (07:30)
[2022-04-06] MEDS ORDERED: FERR325T23 PO (07:31)
[2022-04-06] MEDS ORDERED: CHOL100043 PO (07:31)
[2022-04-06 07:43] LABS: BASOPHILS % (AUTO) 0.1 % (0.0-2.0); EOSINOPHILS % (AUTO) 0.1 % (0.0-6.0); HEMATOCRIT 40 % (39-51); HEMOGLOBIN 13.1 g/dL (13.5-17.5); LYMPHOCYTES # (AUTO) 0.4 K/uL (0.8-4.8); LYMPHOCYTES % (AUTO) 5.4 % (20.0-44.0); MEAN CORPUSCULAR HGB CONC 33 g/dl (31.0-36.0); MEAN CORPUSCULAR VOLUME 97 fL (80-96); MONOCYTES # (AUTO) 0.6 K/uL (0.1-1.30); MONOCYTES % (AUTO) 9.4 % (2.0-12.0); NEUTROPHILS # (AUTO) 5.6 K/uL (1.8-8.9); PLATELET COUNT (AUTO) 123 K/uL (150-450); RED BLOOD CELL COUNT(AUTO) 4.08 MIL/uL (4.5-6.0); WHITE BLOOD COUNT (AUTO) 6.5 K/uL (4.3-11.0)
[2022-04-06 08:00] VITALS: BP 150/69
[2022-04-06] MEDS ORDERED: VANCOMYCIN 500 MG in IV D5W 100ml IV ONE (08:00)
[2022-04-06 08:14] LABS: CALCIUM, SERUM 9.8 mg/dL (8.5-10.1); CARBON DIOXIDE 28 mmol/L (21-32); CHLORIDE 110 mmol/L (98-107); GLUCOSE 150 mg/dL (74-106); PHOSPHORUS 3.3 mg/dL (2.5-4.9); SODIUM SERUM 146 mmol/L (136-145); UREA NITROGEN, BLOOD 22 mg/dL (7-18)
[2022-04-06] MEDS: CEFEPIME 2 GM in IV D5W 100 ML IV SCH ×3 (08:23→21:54)
[2022-04-06] MEDS ORDERED: IOHEXOL-300 100 ML VIAL IV ONE (09:01)
[2022-04-06] MEDS ORDERED: CT SWABBABLE VALVE TRANS SET 1 EA INFUS.SET MC ONE (09:02)
[2022-04-06] MEDS ORDERED: IV NS 0.9% 250 ML IV ONE (09:02)
[2022-04-06 12:00] VITALS: BP 141/72
[2022-04-06 16:00] VITALS: BP 108/54
[2022-04-06] MEDS: VANCOMYCIN 1 GM in IV D5W 250 ML IV SCH (17:27)
--- NOTE | 2022-04-06 18:33 | NUR ---
RN NOTE PATIENT BECAME FOR ALERT AND WRESTLES, TRYING TO GET UP FROM BED AND PULL IV OUT. PATIENT WAS REORIENTED MULTIPLE TIMES. PATIENT STILL ATTEMPTING TO GET UP FROM BED. RESTRAINT ORDER PLACED.
--- NOTE | 2022-04-06 18:46 | NUR ---
RN CLOSING NOTE PATIENT IN BED A/O X 1 WITH CONFUSION. PATIENT ON VENTURI MASK 12L WITH O2 SAT LOW 90%. PATIENT DENIES SOB OF PAIN AT THIS TIME. IV ACCESS ON RAC 20G RUNNING NS AT 75MLS/HR. BILATERAL WRIST RESTRAINTS IN PALACE. SAFETY MEASURES IN PLACE CALL LIGHT WITHIN REACH BED ALARM ACTIVATED WILL ENDORSE TO NIGHT NURSE FOR NAKIA.
--- NOTE | 2022-04-06 19:42 | NUR ---
RN NOTE RECEIVED CARE OF PATIENT FROM AM NURSE WHILE PATIENT IN BED, ALERT TO NAME ONLY, CONFUSED, LETHARGIC. PATIENT ON VENTURI MASK 12L WITH O2 SAT 93%. PATIENT DENIES SOB OF PAIN AT THIS TIME. IV ACCESS ON RAC 20G RUNNING NS AT 75MLS/HR. BILATERAL WRIST RESTRAINTS IN PALACE. WILL ANTICIPATE AND MEET PATIENT'S NEEDS THROUGHOUT SHIFT. SAFETY MEASURES IN PLACE CALL LIGHT WITHIN REACH BED ALARM ACTIVATED WILL CONTINUE TO MONITOR PATIENT.
[2022-04-06 20:00] VITALS: BP 123/65
[2022-04-07] VITALS: BP 140/82
[2022-04-07 04:00] VITALS: BP 118/91
[2022-04-07] MEDS: CEFEPIME 2 GM in IV D5W 100 ML IV SCH ×3 (04:51→21:07)
[2022-04-07] MEDS: VANCOMYCIN 1 GM in IV D5W 250 ML IV SCH ×2 (06:02→17:50)
--- NOTE | 2022-04-07 06:53 | NUR ---
RN CLOSING NOTES WILL ENDORSE CARE OF PATIENT TO AM NURSE, PATIENT IN BED, ANXIOUS, ATTEMPTING TO GET OUT OF BED, DEESCALATION TECHNIQUES INEFFECTIVE. BILATERAL SOFT WRIST RESTRAINTS IN PLACE FOR RISK OF INJURY, NO SKIN OR CIRCULATORY COMPROMISE NOTED. NO SIGNIFICANT CHANGES TO PATIENT'S CONDITION THROUGHOUT SHIFT, NO SIGNIFICANT FINDINGS UPON ALL NURSING ASSESSMENTS. ALL PATIENT'S NEEDS ATTENDED TO, ALL DUE MEDS GIVEN. SAFETY MEASURES KEPT IN PLACE. WILL ENDORSE CARE OF PATIENT TO AM NURSE FOR NAKIA.
[2022-04-07 06:56] LABS: BASOPHILS % (AUTO) 0.1 % (0.0-2.0); EOSINOPHILS % (AUTO) 0.8 % (0.0-6.0); HEMATOCRIT 38 % (39-51); HEMOGLOBIN 12.9 g/dL (13.5-17.5); LYMPHOCYTES # (AUTO) 0.7 K/uL (0.8-4.8); LYMPHOCYTES % (AUTO) 11.4 % (20.0-44.0); MEAN CORPUSCULAR HGB CONC 34 g/dl (31.0-36.0); MEAN CORPUSCULAR VOLUME 96 fL (80-96); MONOCYTES # (AUTO) 0.7 K/uL (0.1-1.30); MONOCYTES % (AUTO) 11.2 % (2.0-12.0); NEUTROPHILS # (AUTO) 4.9 K/uL (1.8-8.9); NEUTROPHILS % (AUTO) 76.5 % (43.0-81.0); PLATELET COUNT (AUTO) 131 K/uL (150-450); RED BLOOD CELL COUNT(AUTO) 3.95 MIL/uL (4.5-6.0); WHITE BLOOD COUNT (AUTO) 6.4 K/uL (4.3-11.0)
[2022-04-07 07:01] LABS: CALCIUM, SERUM 9.8 mg/dL (8.5-10.1); MAGNESIUM 1.9 mg/dL (1.8-2.4); PHOSPHORUS 2.9 mg/dL (2.5-4.9); POTASSIUM 3.8 mmol/L (3.5-5.1)
--- NOTE | 2022-04-07 07:22 | NUR ---
RN OPENING NOTE PATIENT IN BED, ALERT TO NAME ONLY, CONFUSED. PATIENT ON VENTURI MASK 10L . PATIENT DENIES SOB OF PAIN AT THIS TIME. IV ACCESS ON RAC 20G RUNNING NS AT 75MLS/HR. BILATERAL WRIST RESTRAINTS IN PALACE. PATIENT REMINDED TO NOT GET UP FROM BED. SAFETY MEASURES IN PLACE, CALL LIGHT WITHIN REACH BED ALARM ACTIVATED AND 2 SIDE RAILS UP, BED LOCKED IN THE LOWEST POSITION.
[2022-04-07 08:00] VITALS: BP 144/69
[2022-04-07] MEDS: PANTOPRAZOLE 40 MG TABLET.DR PO SCH (08:04)
[2022-04-07] MEDS: IV 1/2NS 1000 ML 1,000 ML IV SCH ×2 (09:57→23:39)
[2022-04-07 12:00] VITALS: BP 121/69
[2022-04-07 16:00] VITALS: BP 146/85
--- NOTE | 2022-04-07 18:48 | NUR ---
RN CLOSING NOTE PATIENT IN BED A/O X 1 WITH CONFUSION. PATIENT ON VENTURI MASK 8L PATIENT DENIES SOB OF PAIN AT THIS TIME. IV ACCESS ON RAC 20G RUNNING 1/2 NS AT 75MLS/HR. BILATERAL WRIST RESTRAINTS IN PALACE. SAFETY MEASURES IN PLACE CALL LIGHT WITHIN REACH BED ALARM ACTIVATED WILL ENDORSE TO NIGHT NURSE FOR NAKIA.
--- NOTE | 2022-04-07 19:30 | NUR ---
RN OPENING NOTES RECEIVED PT LYING IN BED AWAKE. A/O X1 WITH CONFUSION. BREATHING EVEN AND NON-LABORED. ON VENTURI MASK AT 8LPM. DENIES PAIN OR DISCOMFORT AT THIS TIME. NOT IN APPARENT DISTRESS. HAS RIGHT ANTECUBITAL IV ACCESS #20G WITH 1/2 NS RUNNING AT 75 ML/HR. HAS BILATERAL WRIST RESTRAINTS IN PLACE. SKIN AND CIRCULATION WNL. SAFETY MEASURES OBSERVED. WILL CONTINUE PLAN OF CARE.
[2022-04-07 20:00] VITALS: BP 128/79
[2022-04-07] MEDS: ENOXAPARIN SODIUM 30 MG/0.3 ML DISP.SYRIN SQ SCH (21:12)
[2022-04-08] VITALS: BP 133/72
[2022-04-08] MEDS ORDERED: TEMAZEPAM 15 MG CAPSULE PO PRN (03:00)
[2022-04-08 04:00] VITALS: BP 129/69
[2022-04-08] MEDS: CEFEPIME 2 GM in IV D5W 100 ML IV SCH ×3 (04:25→21:43)
[2022-04-08] MEDS: VANCOMYCIN 1 GM in IV D5W 250 ML IV SCH ×2 (05:41→17:55)
[2022-04-08 06:28] LABS: BASOPHILS % (AUTO) 0.2 % (0.0-2.0); HEMATOCRIT 33 % (39-51); HEMOGLOBIN 11.4 g/dL (13.5-17.5); LYMPHOCYTES # (AUTO) 0.5 K/uL (0.8-4.8); LYMPHOCYTES % (AUTO) 7.5 % (20.0-44.0); MEAN CORPUSCULAR HGB CONC 34 g/dl (31.0-36.0); MEAN CORPUSCULAR VOLUME 94 fL (80-96); MONOCYTES # (AUTO) 0.8 K/uL (0.1-1.30); MONOCYTES % (AUTO) 11.3 % (2.0-12.0); NEUTROPHILS # (AUTO) 5.6 K/uL (1.8-8.9); PLATELET COUNT (AUTO) 135 K/uL (150-450); RED BLOOD CELL COUNT(AUTO) 3.52 MIL/uL (4.5-6.0)
--- NOTE | 2022-04-08 07:20 | NUR ---
RN CLOSING NOTES PT LYING IN BED AWAKE. A/O X1 WITH CONFUSION. BILATERAL SOFT WRIST RESTRAINTS ON. CHECKED PT FREQUENTLY. ON VENTURI MASK AT 8LPM. NO SOB OR NOTED. NO C/O PAIN OR DISCOMFORT. NOT IN ACUTE DISTRESS. AFEBRILE. ON TELE MONITOR READING SINUS RHYTHM AT 61 BPM. HAS RIGHT ANTECUBITAL IV ACCESS #18G WITH 1/2 NS RUNNING AT 75 ML/HR. INTACT, PATENT AND FLUSHING. ALL NEEDS ATTENDED. SAFETY MEASURES IN PLACE: BED LOW AND LOCKED, SIDE RAILS UP X2, CALL LIGHT WITHIN REACH.
--- NOTE | 2022-04-08 07:25 | NUR ---
RN OPENING NOTE PATIENT IS IN BED SLEEPING. PATIENT IS EASILY AROUSABLE. PATIENT IS ON 8 L 02 VIA VENTURI MASK. PATIENT DENIES SOB OR PAIN AT THIS TIME. IV ACCESS ON RAC 20G RUNNING NS AT 75MLS/HR. BILATERAL WRIST RESTRAINTS IN PLACE. SAFETY PRECAUTIONS IN PLACE, CALL LIGHT WITHIN REACH, BED ALARM ON, 2 SIDE RAILS UP X2, BED LOCKED IN THE LOWEST POSITION.
[2022-04-08] MEDS: PANTOPRAZOLE 40 MG TABLET.DR PO SCH (07:46)
[2022-04-08 08:00] VITALS: BP 133/70
--- NOTE | 2022-04-08 08:00 | NUR ---
RN NOTE PATIENT ON VENTURI MASK 6L SAT 98% DISCUSSED WITH RT CHANGING MASK TO NASAL CANNULA. PATIENT WAS CHANGED TO NASAL CANULA 4L O2 SAY 96-98% WILL ASSESS PATIENT THROUGHOUT SHIFT.
--- NOTE | 2022-04-08 08:11 | NUR ---
WOUND CARE CONSULT: PT PRESENTS WITH SACRAL INTACT DEEP TISSUE INJURY, PRESENT ON ADMISSION. RECOMMENDATIONS MADE FOR SKIN PROTECTION. DISCUSSED WITH NURSING STAFF. MD IN AGREEMENT WITH PLAN OF CARE.
[2022-04-08 08:48] LABS: CALCIUM, SERUM 9.1 mg/dL (8.5-10.1); CREATININE 0.8 mg/dL (0.6-1.3); POTASSIUM 3.4 mmol/L (3.5-5.1)
[2022-04-08] MEDS: POTASSIUM CL. PREMIX PERIPHER. 50 ML IV SCH ×2 (10:11→11:11)
--- NOTE | 2022-04-08 11:59 | NUR ---
RN NOTE TRANSFERRED CARE TO [facility]
[2022-04-08 12:00] VITALS: BP 145/70
[2022-04-08] MEDS: IV 1/2NS 1000 ML 1,000 ML IV SCH (12:12)
[2022-04-08 16:00] VITALS: BP 153/63
--- NOTE | 2022-04-08 18:38 | NUR ---
RN closing note . Patient is in bed , alert , oriented by name , often confused. Patient is on soft restrain both hands due to pulling out the IV . Has IV access on RAC 18 g , 1/2 Ns running at 75 ml/hr. Patient is on puirre diet , medications needs to be crashed , assistance with food , pure diet .Patient has redness on the sacral area, low back abrasion , dressing changed . Patient has SR 64. All meds are administered. Bed is at lowest position , bed side rails are up. Call light within reach .
--- NOTE | 2022-04-08 19:15 | NUR ---
RN NOTE PT AWAKE IN BED, VERBALLY RESPONSIVE, A/OX1 TO NAME. REORIENTATION PROVIDED. NO C/O NOR S/S OF PAIN NOTED. RESPIRATIONS EVEN/UNLABORED. WITH IV ACCESS TO R-AC #18G INTACT/PATENT, INFUSING 1/2NS @75ML/HR. WITH MARCELINA SOFT RESTRAINTS FOR SAFETY D/T PULLING OUT LINES. SKIN/CIRCULATION WNL. WILL CONT FREQUENT VISUAL CHECK Q15MIN. PT IN NO ACUTE DISTRESS. SAFETY MEASURES IN PLACE. WILL CONT TO MONITOR.
[2022-04-08 20:00] VITALS: BP 115/67
[2022-04-08] MEDS: ENOXAPARIN SODIUM 30 MG/0.3 ML DISP.SYRIN SQ SCH (21:41)
[2022-04-09] VITALS: BP 120/65
[2022-04-09] MEDS: IV 1/2NS 1000 ML 1,000 ML IV SCH ×2 (02:26→13:01)
[2022-04-09 04:00] VITALS: BP 112/65
[2022-04-09] MEDS: CEFEPIME 2 GM in IV D5W 100 ML IV SCH ×3 (04:49→20:11)
[2022-04-09] MEDS: VANCOMYCIN 1 GM in IV D5W 250 ML IV SCH ×2 (06:19→18:01)
[2022-04-09 06:43] LABS: BASOPHILS % (AUTO) 0.2 % (0.0-2.0); EOSINOPHILS % (AUTO) 1.2 % (0.0-6.0); HEMATOCRIT 31 % (39-51); HEMOGLOBIN 10.6 g/dL (13.5-17.5); LYMPHOCYTES # (AUTO) 0.6 K/uL (0.8-4.8); LYMPHOCYTES % (AUTO) 9.9 % (20.0-44.0); MEAN CORPUSCULAR HGB CONC 35 g/dl (31.0-36.0); MEAN CORPUSCULAR VOLUME 94 fL (80-96); MONOCYTES # (AUTO) 0.6 K/uL (0.1-1.30); MONOCYTES % (AUTO) 10.3 % (2.0-12.0); NEUTROPHILS # (AUTO) 4.6 K/uL (1.8-8.9); NEUTROPHILS % (AUTO) 78.4 % (43.0-81.0); PLATELET COUNT (AUTO) 147 K/uL (150-450); RED BLOOD CELL COUNT(AUTO) 3.27 MIL/uL (4.5-6.0); WHITE BLOOD COUNT (AUTO) 5.8 K/uL (4.3-11.0)
--- NOTE | 2022-04-09 07:30 | NUR ---
SERVICE RESTORER EMERGENCY AM NOTES PT IN BED, AWAKE. A/O X1 WITH CONFUSION. ON 4L O2 NASAL CANULA, SPO2 96%, RESPIRATION UNLABORED, SR HR 78 ON MONITOR, DENIES/NO SIGNS OF PAIN, IV ACCESS RAC 18G, WITH 1/2 NS AT 75 ML INFUSING WELL, SITE CLEAR. HAS BILATERAL WRIST RESTRAINTS IN PLACE. RELEASED AND CHECKED CIRCULATION THEN Q 2 HOURS. SEE NURSING FLOWHSEET FOR SKIN ISSUES. FEEDER. PUREED DIET. SAFETY MEASURES OBSERVED. WILL CONTINUE PLAN OF CARE.
[2022-04-09 07:32] LABS: CALCIUM, SERUM 9.4 mg/dL (8.5-10.1); CARBON DIOXIDE 26 mmol/L (21-32); CHLORIDE 106 mmol/L (98-107); CREATININE 0.9 mg/dL (0.6-1.3); GLUCOSE 115 mg/dL (74-106); POTASSIUM 3.2 mmol/L (3.5-5.1); SODIUM SERUM 140 mmol/L (136-145); UREA NITROGEN, BLOOD 14 mg/dL (7-18)
[2022-04-09] MEDS: PANTOPRAZOLE 40 MG TABLET.DR PO SCH (07:57)
[2022-04-09 08:00] VITALS: BP 136/70
[2022-04-09] MEDS ORDERED: POTASSIUM CHLORIDE 20 MEQ TAB.PRT.SR PO ONE (08:30)
--- NOTE | 2022-04-09 09:30 | NUR ---
RN NOTES DUE MEDS GIVEN
[2022-04-09 12:00] VITALS: BP 145/73
--- NOTE | 2022-04-09 13:38 | NUR ---
RN NOTES DR. KAUFMAN NOTIFIED ABOUT PATIENT'S MEDICATIONS NEEDS TO BE RECONCILED AND THAT BROTHER'S CONCERN IS THAT PATIENT HAS SOME ANTIPSCYH MEDICATIONS. NO NEW ORDERS
[2022-04-09 16:00] VITALS: BP 143/74
--- NOTE | 2022-04-09 16:05 | NUR ---
RN NOTES FOLLOW UP CALL TO [facility] FOR DR. KAUFMAN REGARDING PATIENT'S MEDICATION RECONCILIATION.
--- NOTE | 2022-04-09 16:18 | NUR ---
RN NOTES PER DR. KAUFMAN, PSYCH MEDS WERE HELD BECAUSE PATIENT WAS ALTERED AND CONFUSED.
[2022-04-09] MEDS ORDERED: BISACODYL SUPP (10 MG) 10 MG/SUPP.RECT SUPP.RECT RC PRN (16:30)
--- NOTE | 2022-04-09 16:33 | NUR ---
RN NOTES PER DR. KAUFMAN, HE SPOKE WITH THE FAMILY MEMBER AND HE HAS SATISFIED WITH THEIR DISCUSSION.
[2022-04-09] MEDS ORDERED: ACETAMINOPHEN 325 MG TABLET PO PRN (17:00)
[2022-04-09] MEDS ORDERED: FERROUS SULFATE (325 MG) 325 MG/TAB TABLET PO SCH (18:00)
[2022-04-09] MEDS: DIVALPROEX SODIUM 500 MG TABLET.DR PO SCH (18:01)
[2022-04-09] MEDS: HALOPERIDOL 5 MG TABLET PO SCH (18:02)
--- NOTE | 2022-04-09 19:30 | NUR ---
TELE/RN OPENING NOTE RECEIVED PATIENT RESTING IN BED. AWAKE, ALERT AND ORIENTED X 1-2. NO S/SX OF PAIN NOTED. CONTINUES ON O2 4L VIA NC WITH NO S/SX OF RESPIRATORY DISTRESS NOTED. IV ACCESS TO RIGHT AC #18G INTACT AND PATENT. CONTINUES ON IV ABX. CONTINUES ON IVF 1/2 NS @ 75ML/HR. CONTINUES ON TELE MONITOR WITH CURRENT READING SR. CONTINUES ON PUREED DIET WITH THIN LIQUIDS. NO S/SX OF ASPIRATION NOTED. CONTINUES ON BILATERAL SOFT WRIST RESTRAINTS WITH POSITIVE CIRCULATION AND NO NEW SKIN ISSUES NOTED. CALL LIGHT WITHIN REACH. ASPIRATION, FALL AND SAFETY PRECAUTIONS MAINTAINED. ALL NEEDS ATTENDED TO AT THIS TIME.
--- NOTE | 2022-04-09 19:37 | NUR ---
CLIENT SERVICES MANAGER AM NOTES PT IN BED, AWAKE. A/O X1 WITH CONFUSION. ON 4L O2 NASAL CANULA, SPO2 96%, RESPIRATION UNLABORED, SR HR 78 ON MONITOR, DENIES/NO SIGNS OF PAIN, IV ACCESS RAC 18G, WITH 1/2 NS AT 75 ML INFUSING WELL, SITE CLEAR. HAS BILATERAL WRIST RESTRAINTS IN PLACE. RELEASED AND CHECKED CIRCULATION, Q 2 HOURS. FEEDER. PUREED DIET. SAFETY MEASURES OBSERVED. PM CARE AND PRESCRIBED WOUND TREATMENT DONE EARLIER. TURNED AND REPOSITIONED Q 2 HOURS. ALL NEEDS MET. WILL ENDORSE TO NEXT SHIFT FOR NAKIA.
[2022-04-09 20:00] VITALS: BP 133/77
[2022-04-09] MEDS ORDERED: ATORVASTATIN 10 MG TABLET PO SCH (22:00)
[2022-04-09] MEDS: ENOXAPARIN SODIUM 30 MG/0.3 ML DISP.SYRIN SQ SCH (22:04)
[2022-04-10] VITALS: BP 117/50
[2022-04-10 04:00] VITALS: BP 119/58
[2022-04-10] MEDS: CEFEPIME 2 GM in IV D5W 100 ML IV SCH ×2 (04:09→13:03)
[2022-04-10] MEDS: IV 1/2NS 1000 ML 1,000 ML IV SCH (04:09)
[2022-04-10] MEDS: VANCOMYCIN 1 GM in IV D5W 250 ML IV SCH (05:13)
--- NOTE | 2022-04-10 06:30 | NUR ---
TELE/RN CLOSING NOTE PATIENT CURRENTLY RESTING IN BED. AWAKE, ALERT AND ORIENTED X 1. NO S/SX OF PAIN NOTED. CONTINUES ON O2 4L VIA NC WITH NO S/SX OF RESPIRATORY DISTRESS NOTED. IV ACCESS TO RIGHT AC #18G INTACT AND PATENT. CONTINUES ON IV ABX. CONTINUES ON IVF 1/2 NS @ 75ML/HR. CONTINUES ON TELE MONITOR WITH CURRENT READING SR. CONTINUES ON PUREED DIET WITH THIN LIQUIDS. NO S/SX OF ASPIRATION NOTED. CONTINUES ON BILATERAL SOFT WRIST RESTRAINTS WITH POSITIVE CIRCULATION AND NO NEW SKIN ISSUES NOTED. CALL LIGHT WITHIN REACH. ASPIRATION, FALL AND SAFETY PRECAUTIONS MAINTAINED. WILL ENDORSE PLAN OF CARE TO ONCOMING SHIFT RN.
[2022-04-10 06:33] LABS: BASOPHILS % (AUTO) 0.3 % (0.0-2.0); EOSINOPHILS % (AUTO) 2.5 % (0.0-6.0); HEMATOCRIT 34 % (39-51); HEMOGLOBIN 11.4 g/dL (13.5-17.5); LYMPHOCYTES # (AUTO) 0.9 K/uL (0.8-4.8); LYMPHOCYTES % (AUTO) 10.7 % (20.0-44.0); MEAN CORPUSCULAR HGB CONC 34 g/dl (31.0-36.0); MEAN CORPUSCULAR VOLUME 95 fL (80-96); MONOCYTES # (AUTO) 0.9 K/uL (0.1-1.30); MONOCYTES % (AUTO) 10.2 % (2.0-12.0); NEUTROPHILS # (AUTO) 6.4 K/uL (1.8-8.9); NEUTROPHILS % (AUTO) 76.3 % (43.0-81.0); PLATELET COUNT (AUTO) 193 K/uL (150-450); RED BLOOD CELL COUNT(AUTO) 3.55 MIL/uL (4.5-6.0); WHITE BLOOD COUNT (AUTO) 8.4 K/uL (4.3-11.0)
[2022-04-10 07:12] LABS: CALCIUM, SERUM 9.3 mg/dL (8.5-10.1); CREATININE 0.9 mg/dL (0.6-1.3); POTASSIUM 3.6 mmol/L (3.5-5.1)
[2022-04-10] MEDS ORDERED: LEVOTHYROXINE SODIUM 75 MCG TABLET PO SCH (07:30)
--- NOTE | 2022-04-10 07:30 | NUR ---
ACADEMIC AFFAIRS SPECIALIST AM NOTES PT IN BED, AWAKE. A/O X1 WITH CONFUSION. ON 4L O2 NASAL CANULA, SPO2 96%, RESPIRATION UNLABORED, SR HR 78 ON MONITOR, DENIES/NO SIGNS OF PAIN, IV ACCESS RAC 18G, WITH 1/2 NS AT 75 ML INFUSING WELL, SITE CLEAR. HAS BILATERAL WRIST RESTRAINTS IN PLACE. RELEASED AND CHECKED CIRCULATION THEN Q 2 HOURS. SEE NURSING FLOWHSEET FOR SKIN ISSUES. FEEDER. PUREED DIET. SAFETY MEASURES OBSERVED. WILL CONTINUE PLAN OF CARE
[2022-04-10 08:00] VITALS: BP 143/68
[2022-04-10] MEDS: PANTOPRAZOLE 40 MG TABLET.DR PO SCH (08:04)
[2022-04-10] MEDS: DIVALPROEX SODIUM 500 MG TABLET.DR PO SCH ×2 (08:05→13:03)
[2022-04-10] MEDS: HALOPERIDOL 5 MG TABLET PO SCH (08:05)
[2022-04-10] MEDS ORDERED: DOCUSATE SODIUM 100 MG CAPSULE PO SCH (09:00)
[2022-04-10] MEDS ORDERED: AMLODIPINE BESYLATE 10 MG TABLET PO SCH (09:00)
--- NOTE | 2022-04-10 09:30 | NUR ---
RN NOTES DUE MEDS GIVEN
[2022-04-10 12:00] VITALS: BP 124/69
[2022-04-10] MEDS ORDERED: CEFE2FRO IV (12:49)
--- NOTE | 2022-04-10 15:30 | NUR ---
notified re; patient michael 6 complxes voer 1 sec converted back to uncontrolled A FIB
--- NOTE | 2022-04-10 15:30 | NUR ---
RN NOTES REPORT GIVEN TO JASBIR MURDOCK AT FACILITY. PATIENT DISCHARGED TO [facility], PROVIDED DC INSTRUCTIONS, MED RECON LIST AND HEALTH TEACHINGS, IV ACCESS TO RIGHT ANTECUBITAL 18G IN PLACE, FLUSHES WELL, SITE CLEAR. NO BELONGINGS. ALL PAPERWORKS SIGNED BY 2 NURSES. PATIENT TO NC LACED TO ROOM 101 B. PATIENT PICKED UP BY 2 AMBULANCE CREW, TRANSPORTED TO FACILITY IN STABLE CONDITION. PATIENT CONFUSED AND A BIT COMBATIVE, UNABLE TO TAKE PHOTOS OF SKIN ISSUES AT THIS TIME
[2022-04-10 15:58] VITALS: BP 123/71
[2022-05-09] MEDS ORDERED: PALIPERIDONE PALMITATE 117 MG/0.75 ML SYRINGE IM SCH (09:00)
== END 2022-04-10 16:38 | DRG 177 ==
LOC: ER 21:14 → TELE1 04-06 03:05 → TELE-TD 04-06 06:56 → TELE1 04-07 09:58
PROVIDERS: ADMIT Nurse Practitioner Acute Care; ATTEND Nurse Practitioner Acute Care
PROC: 05H933Z Insertion of Infusion Device into Right Brachial Vein, Percutaneous Approach (ICD-10-PCS; principal; 2022-04-09)
DX: J15.6 Pneumonia due to other Gram-negative bacteria (principal); G93.41 Metabolic encephalopathy; J96.01 Acute respiratory failure with hypoxia; E87.0 Hyperosmolality and hypernatremia; N39.0 Urinary tract infection, site not specified; N17.9 Acute kidney failure, unspecified; J15.9 Unspecified bacterial pneumonia; G40.909 Epilepsy, unspecified, not intractable, without status epilepticus; Z20.822 Contact with and (suspected) exposure to COVID-19; D63.8 Anemia in other chronic diseases classified elsewhere; E86.0 Dehydration; E03.9 Hypothyroidism, unspecified; E78.5 Hyperlipidemia, unspecified; F03.90 Unspecified dementia, unspecified severity, without behavioral disturbance, psychotic disturbance, mood disturbance, and anxiety; F20.9 Schizophrenia, unspecified; I10 Essential (primary) hypertension; R62.7 Adult failure to thrive; I25.10 Atherosclerotic heart disease of native coronary artery without angina pectoris; Z78.1 Physical restraint status; B96.20 Unspecified Escherichia coli [E. coli] as the cause of diseases classified elsewhere; Z79.890 Hormone replacement therapy; Z87.440 Personal history of urinary (tract) infections; Z87.01 Personal history of pneumonia (recurrent)
CPT/HCPCS: 36415; 70450-TC; 71045-TC; 71260-TC; 80048-TC; 80076-TC; 80202-TC; 82140-TC; 83735-TC; 84100-TC; 84484-TC; 85025-TC; 87040-TC; 87070-TC; 87081-TC; 87086-TC; 87186-TC; 92526; 92611-TC; 94799-TC; C9803; G0378; J0692; J0696; J1650; J3370; J3480; J3490; J7030; J7050; J7060; Q9967

== ENCOUNTER 2023-03-20 15:23 | Inpatient (IN) | payer MEDICARE, OTHER ==
[~2023-03-20] VITALS: Ht 172.7 cm; Wt 70.3 kg
[~2023-03-20 15:23] MED LIST changes: +AMLO10TA4 GT; -AMLO10TA4 PO; +ATOR10TA GT; -ATOR10TA PO; +CEFE2FRO IV; -CEPH750C9 PO; +CHOL100043 PO; +DOCU-141 GT; -DOCU-141 PO; +FERR325T23 PO; +LEVO100T GT; -LEVO100T PO; +MAGN400O6 GT; -MAGN400O6 PO
--- NOTE | 2023-03-20 15:32 | NUR ---
BIB PA FROM [facility] FOR LEFT UPPER BACK ABSCESS,NOT IMPROVING WITH 3 DAYS OF VANCOMYCIN
[2023-03-20] MEDS ORDERED: IV NS 0.9% 1,000 ML BAG IV ONE (16:30)
[2023-03-20] MEDS ORDERED: CEFEPIME 1 GM in IV D5W 50 ML IV ONE (16:30)
--- NOTE | 2023-03-20 16:37 | NUR ---
IV LEFT AC 20 G
[2023-03-20 16:56] LABS: BASOPHILS % (AUTO) 0.7 % (0.0-2.0); HEMATOCRIT 35 % (39-51); HEMOGLOBIN 11.4 g/dL (13.5-17.5); LYMPHOCYTES # (AUTO) 1.5 K/uL (0.8-4.8); LYMPHOCYTES % (AUTO) 28.9 % (20.0-44.0); MEAN CORPUSCULAR HGB CONC 33 g/dl (31.0-36.0); MEAN CORPUSCULAR VOLUME 98 fL (80-96); MONOCYTES # (AUTO) 0.4 K/uL (0.1-1.30); MONOCYTES % (AUTO) 7.4 % (2.0-12.0); NEUTROPHILS # (AUTO) 2.9 K/uL (1.8-8.9); PLATELET COUNT (AUTO) 312 K/uL (150-450); RED BLOOD CELL COUNT(AUTO) 3.57 MIL/uL (4.5-6.0); WHITE BLOOD COUNT (AUTO) 5.1 K/uL (4.3-11.0)
--- NOTE | 2023-03-20 17:09 | NUR ---
PAGED EPIC GEOPHYSICAL PROSPECTOR
--- NOTE | 2023-03-20 17:09 | NUR ---
SUBMITTED MOVE SHEET
[2023-03-20] MEDS ORDERED: BENZTROPINE MESYLATE (1 MG) 1 MG TABLET PO ONE (17:30)
[2023-03-20] MEDS ORDERED: ONDANSETRON HCL/PF 4 MG/2 ML VIAL IVP PRN (17:30)
[2023-03-20] MEDS ORDERED: ACETAMINOPHEN 325 MG TABLET PO PRN (17:30)
[2023-03-20 17:54] LABS: CALCIUM, SERUM 9.4 mg/dL (8.5-10.1); CARBON DIOXIDE 30 mmol/L (21-32); CHLORIDE 106 mmol/L (98-107); CREATININE 0.7 mg/dL (0.6-1.3); GLUCOSE 82 mg/dL (74-106); POTASSIUM 4.9 mmol/L (3.5-5.1); SODIUM SERUM 139 mmol/L (136-145); UREA NITROGEN, BLOOD 19 mg/dL (7-18)
[2023-03-20 17:58] LABS: ALANINE AMINOTRANSFERASE 27 U/L (12-78); ALBUMIN 2.3 g/dL (3.4-5.0); ALKALINE PHOSPHATASE 90 U/L (46-116); ASPARTATE AMINOTRANSFERASE 13 U/L (15-37); BILIRUBIN,DIRECT 0.1 mg/dL (0.0-0.2); BILIRUBIN,TOTAL 0.2 mg/dL (0.2-1.0); TOTAL PROTEIN, SERUM 7.2 g/dL (6.4-8.2)
[2023-03-20] MEDS ORDERED: FERROUS SULFATE (325 MG) 325 MG/TAB TABLET PO SCH (18:00)
--- NOTE | 2023-03-20 19:51 | NUR ---
REPORT GIVEN TO COLLETTE LEVY
[2023-03-20 20:00] VITALS: BP_SYST 121; BP_SYST 89; BP_DIAS 51; BP_DIAS 64
--- NOTE | 2023-03-20 20:00 | NUR ---
MS STRATEGY ANALYST NOTES RECEIVED PATIENT VIA GURNEY FROM ER AT 1999. PATIENT IS A/O TIMES 2. ABLE TO MAKE NEEDS KNOWN. NO PAIN NOTED. ON ROOM AIR AND TOLERATING WELL. PATIENT IS NON AMBULATORY . BED REST. IV ACCESS ON THE LAC # 20 INTACT AND PATENT. RUNNING NS AT 75 ML/HR. ANOTHER IV ACCESS ON THE LEFT THUMB # 22 INTACT AND PATENT , FLUSHING WELL AND SL. LEFT UPPER WOUND NOTED ON THE BACK. COVERED WITH DRY DRESSING. ALSO NOTED REDNESS AROUND GTUBE. AND GREENISH BRUISE ON THE LEFT UPPER EXTREMITY. ALL PHOTO TAKEN AND KEPT IN THE CHART. GTUBE INTACT AND PATENT. CHECKED PLACEMENT WITH AUSCULTATION. NO RESIDUAL NOTED. THE FEEDING IS ISOSOURCE 1.5 AT 85 CC PER FACILITY ORDER. THERE IS NO PLACEMENT IN OUR HOSPITAL. DIETARY CONSULT ORDERED FOR CLARIFICATION. ALSO WOUND CARE ONSULT ORDERED. ALL SAFETY MEASURES IN PLACE. BED LOCKED IN THE LOWEST POSITION. CALL LIGHT IN EASY REACH. SIDE RAILS UP TIMES 2. BED ALARM ON. HOB ELEVATED FOR ASPIRATION PRECAUTION. WILL CONTINUE TO MONITOR CLOSELY.
--- NOTE | 2023-03-20 20:04 | NUR ---
PT TRANSFERED TO [facility]
[2023-03-20] MEDS: DIVALPROEX SODIUM 500 MG TABLET.DR PO SCH (20:48)
[2023-03-20] MEDS: HALOPERIDOL 5 MG TABLET PO SCH (20:48)
[2023-03-20] MEDS: ENOXAPARIN SODIUM 40 MG/0.4 ML DISP.SYRIN SQ SCH (20:53)
[2023-03-20] MEDS: CEFEPIME 2 GM in IV D5W 100 ML IV SCH (21:05)
[2023-03-20] MEDS: IV NS 0.9% 1,000 ML IV PRN (21:07)
[2023-03-20] MEDS ORDERED: ATORVASTATIN 10 MG TABLET PO SCH (22:00)
[2023-03-21 04:00] VITALS: BP 128/71
[2023-03-21 05:45] LABS: BASOPHILS % (AUTO) 0.7 % (0.0-2.0); EOSINOPHILS % (AUTO) 5.9 % (0.0-6.0); HEMATOCRIT 32 % (39-51); HEMOGLOBIN 10.5 g/dL (13.5-17.5); LYMPHOCYTES # (AUTO) 1.4 K/uL (0.8-4.8); LYMPHOCYTES % (AUTO) 31.9 % (20.0-44.0); MEAN CORPUSCULAR HGB CONC 33 g/dl (31.0-36.0); MEAN CORPUSCULAR VOLUME 98 fL (80-96); MONOCYTES # (AUTO) 0.3 K/uL (0.1-1.30); MONOCYTES % (AUTO) 6.8 % (2.0-12.0); NEUTROPHILS # (AUTO) 2.5 K/uL (1.8-8.9); NEUTROPHILS % (AUTO) 54.7 % (43.0-81.0); PLATELET COUNT (AUTO) 260 K/uL (150-450); RED BLOOD CELL COUNT(AUTO) 3.29 MIL/uL (4.5-6.0); WHITE BLOOD COUNT (AUTO) 4.5 K/uL (4.3-11.0)
[2023-03-21 06:04] LABS: CALCIUM, SERUM 8.8 mg/dL (8.5-10.1); CREATININE 0.6 mg/dL (0.6-1.3); MAGNESIUM 1.9 mg/dL (1.8-2.4); PHOSPHORUS 3.1 mg/dL (2.5-4.9); POTASSIUM 4.1 mmol/L (3.5-5.1)
--- NOTE | 2023-03-21 06:32 | NUR ---
MS RN CLOSING NOTES RECEIVED AWAKE IN BED. PATIENT IS A/O TIMES 2. ABLE TO MAKE NEEDS KNOWN. NO PAIN NOTED. ON ROOM AIR AND TOLERATING WELL. PATIENT IS NON AMBULATORY . BED REST. IV ACCESS ON THE LAC # 20 INTACT AND PATENT. RUNNING NS AT 75 ML/HR. ANOTHER IV ACCESS ON THE LEFT THUMB # 22 INTACT AND PATENT , FLUSHING WELL AND SL. LEFT UPPER WOUND NOTED ON THE BACK. COVERED WITH DRY DRESSING. ALSO NOTED REDNESS AROUND GTUBE. AND GREENISH BRUISE ON THE LEFT UPPER EXTREMITY. GTUBE INTACT AND PATENT. CHECKED PLACEMENT WITH AUSCULTATION. NO RESIDUAL NOTED. ALL DUE MEDS GIVEN VIA GTUBE. ALL SAFETY MEASURES IN PLACE. BED LOCKED IN THE LOWEST POSITION. CALL LIGHT IN EASY REACH. SIDE RAILS UP TIMES 2. BED ALARM ON. HOB ELEVATED FOR ASPIRATION PRECAUTION. WILL ENDORSE FOR NAKIA.
--- NOTE | 2023-03-21 07:00 | NUR ---
MS RN OPENING NOTES: RECEIVED PT IN BED AWAKE, A/O X 2 ABLE TO MAKE NEEDS KNOWN. NO SOB OR CARDIAC DISTRESS. PT DENIES PAIN AT THIS TIME. PT ON ROOM AIR AND JAIRON WELL. IV ACCESS ON LAC GAUGE 20 PATENT INTACT AND INFUSING NS 1L @75ML/HR. WOUND DRESSING NOTED ON LEFT UPPER BACK NOTED WITH YELLOWISH COLORED DISCHARGE. G-TUBE SITE NOTED. SAFETY MEASURES MAINTAINED: BED LOCKED AND IN LOWEST POSITION, SIDE RAILS UP X2 . CALL LIGHT IN EASY REACH FOR HELP. WILL MONITOR PT ACCORDINGLY.
[2023-03-21] MEDS ORDERED: LEVOTHYROXINE SODIUM 100 MCG TABLET PO SCH (07:30)
--- NOTE | 2023-03-21 07:37 | NUR ---
WOUND CARE CONSULT: PT PRESENTS WITH ABSCESS TO UPPER BACK, PRESENT ON ADMISSION. SMALL AMOUNT OF PURULENT DRAINAGE NOTED, NO ODOR. RECOMMEND SURGICAL CONSULT. IN AGREEMENT WITH PLAN OF CARE. Addendum: 03/21/23 at 0742 by PIPPA MORTON WNDNU DISCUSSED SKIN PROTECTION AND WOUND CARE RECOMMENDATIONS WITH NURSING STAFF (DRY DRESSING). IN AGREEMENT WITH PLAN OF CARE.
--- NOTE | 2023-03-21 07:54 | NUR ---
RN NOTES: RECEIVED A CALL FROM CAM (EMERGENCY MEDICAL SERVICE MANAGER) RECOMMENDED JEVITY 1.2 @70ML X 24 HRS. PER CAM SHE WILL PUT THE ORDER.
[2023-03-21 08:00] VITALS: BP 121/50
[2023-03-21] MEDS: PROSOURCE / PROSTAT (PYXIS) 30 ML UDC GT SCH (08:09)
[2023-03-21] MEDS: CEFEPIME 2 GM in IV D5W 100 ML IV SCH ×2 (08:10→21:03)
[2023-03-21] MEDS: DIVALPROEX SODIUM 500 MG TABLET.DR PO SCH ×3 (08:11→16:22)
[2023-03-21] MEDS: HALOPERIDOL 5 MG TABLET PO SCH (08:11)
[2023-03-21] MEDS ORDERED: DOCUSATE SODIUM 100 MG CAPSULE PO SCH (09:00)
[2023-03-21] MEDS ORDERED: AMLODIPINE BESYLATE 10 MG TABLET PO SCH (09:00)
[2023-03-21] MEDS ORDERED: CHOLECALCIFEROL (VITAMIN D 3) 400 UNIT TABLET PO SCH (09:00)
--- NOTE | 2023-03-21 09:15 | NUR ---
RN NOTES: CHANGED DOCUSATE PO TO DOCUSATE GT. PT HAS GTUBE SITE.
[2023-03-21] MEDS ORDERED: LACT100027 GT (10:11)
[2023-03-21] MEDS ORDERED: PALI156D IM (10:11)
[2023-03-21] MEDS ORDERED: PETR113O TP (10:11)
[2023-03-21] MEDS ORDERED: AMIN30LI2 GT (10:11)
[2023-03-21] MEDS ORDERED: DIVA125C5 GT (10:11)
[2023-03-21] MEDS ORDERED: BENZ0.5T43 GT (10:11)
[2023-03-21] MEDS ORDERED: ASCO-352 GT (10:11)
[2023-03-21] MEDS ORDERED: VANC1VIA4 IV (10:11)
[2023-03-21] MEDS ORDERED: MULT-447 GT (10:11)
[2023-03-21] MEDS: JEVITY 1.2 CAL 1,000 ML BOTTLE GT PRN (10:32)
[2023-03-21] MEDS: IV NS 0.9% 1,000 ML IV PRN (10:41)
[2023-03-21] MEDS ORDERED: ACETAMINOPHEN 650 MG/20.3 ML UDC GT PRN (13:00)
--- NOTE | 2023-03-21 15:27 | NUR ---
RN NOTES: INFORMED DR LYONS ABOUT PIPPA (WOUND NURSE RECOMMENDATIONS) ABOUT THE PT'S UPPER BACK ABSCESS. PIPPA RECS PT TO FOLLOW UP WITH GENERAL SURGEON TO DRAIN THE ABSCESS. INFORMED DR LYONS AND PENDING RESPONSE.
[2023-03-21 16:00] VITALS: BP 110/60
[2023-03-21] MEDS: HALOPERIDOL 5 MG TABLET GT SCH (16:22)
[2023-03-21] MEDS: FERROUS SULFATE (325 MG) 325 MG/TAB TABLET GT SCH (17:27)
--- NOTE | 2023-03-21 18:58 | NUR ---
MS RN CLOSING NOTES: PT IN BED AWAKE, A/O X 2 ABLE TO MAKE NEEDS KNOWN. NO SOB OR CARDIAC DISTRESS. PT DENIES PAIN AT THIS TIME. PT ON ROOM AIR AND JAIRON WELL. IV ACCESS ON LAC GAUGE 20 PATENT INTACT AND INFUSING NS 1L @75ML/HR. WOUND DRESSING NOTED ON LEFT UPPER BACK NOTED WITH YELLOWISH COLORED DISCHARGE. G-TUBE SITE INTACT FORMULA: JEVITY 70ML/HR X 24HRS WELL, NO RESIDUAL NOTED. SAFETY MEASURES MAINTAINED: BED LOCKED AND IN LOWEST POSITION, SIDE RAILS UP X2 . CALL LIGHT IN EASY REACH FOR HELP. WILL ENDORSE TO CLINICAL TRIAL HEAD FOR CONTINUITY OF CARE.
--- NOTE | 2023-03-21 19:30 | NUR ---
MS RN OPENING NOTES RECEIVED PATIENT IN BED AWAKE AND ALERT. A/O X 2, SOME CONFUSION. NOS/S OF PAIN NOTED AT THIS TIME. ON ROOM AIR, BREATHING EVEN AND UNLABORED, NO DISTRESS OR SOB NOTED. IV ACCESS LAC #20 RUNNING NS @ 785ML/HR. G-TUBE RUNNING JEVITY @ 70ML/HR. SAFETY MEASURES IN PLACE WITH BED IN LOWEST LOCKED POSITION. SIDE RAILS UP.CALL LIGHT AND TRAY WITHIN EASY REACH. WILL CONTINUE TO MONITOR WITH THE PLAN OF CARE.
[2023-03-21 20:00] VITALS: BP_SYST 101; BP_SYST 120; BP_DIAS 57; BP_DIAS 60
[2023-03-21] MEDS: ATORVASTATIN 10 MG TABLET GT SCH (21:04)
[2023-03-21] MEDS: ENOXAPARIN SODIUM 40 MG/0.4 ML DISP.SYRIN SQ SCH (21:05)
--- NOTE | 2023-03-21 22:38 | NUR ---
RN NOTES-TYLENOL GIVEN PRN PATIENT C/O OF PAIN WITH PAIN LEVEL OF 4/10. TYLENOL GIVEN PRN. WILL CONTINUE TO MONITOR THE PATIENT.
[2023-03-22] MEDS: JEVITY 1.2 CAL 1,000 ML BOTTLE GT PRN (06:36)
--- NOTE | 2023-03-22 07:20 | NUR ---
MS RN OPENING NOTES RECEIVED PATIENT IN BED, A/O X 2, WITH EPISODES OF CONFUSION. NO S/S OF PAIN NOTED AT THIS TIME. ON ROOM AIR, BREATHING EVEN AND UNLABORED, NO DISTRESS OR SOB NOTED. IV ACCESS LEFT THUMB #20G RUNNING NS @ 70ML/HR. G-TUBE RUNNING JEVITY @ 70ML/HR. SAFETY MEASURES IN PLACE WITH BED IN LOWEST LOCKED POSITION. SIDE RAILS UP. CALL LIGHT AND TRAY WITHIN EASY REACH. WILL CONTINUE TO MONITOR THE PATIENT THROUGHOUT THE SHIFT.
--- NOTE | 2023-03-22 07:26 | NUR ---
MS RN CLOSING NOTES PATIENT IN BED AWAKE. A/O X 2, SOME CONFUSION. NO S/S OF PAIN NOTED AT THIS TIME. ON ROOM AIR, BREATHING EVEN AND UNLABORED, NO DISTRESS OR SOB NOTED. IV ACCESS LEFT THUMB #20 RUNNING NS @ 75 ML/HR. G-TUBE RUNNING JEVITY @ 70ML/HR. WOUND CARE DONE. SAFETY MEASURES MAINTAINED DURING SHIFT. WILL ENDORSE TO THE NEXT SHIFT.
[2023-03-22 08:00] VITALS: BP 123/56
[2023-03-22] MEDS: LEVOTHYROXINE SODIUM 50 MCG TABLET GT SCH (08:20)
[2023-03-22] MEDS: DIVALPROEX SODIUM 500 MG TABLET.DR PO SCH ×3 (08:23→17:09)
[2023-03-22] MEDS: HALOPERIDOL 5 MG TABLET GT SCH ×2 (08:23→17:09)
[2023-03-22] MEDS: DOCUSATE SODIUM LIQ 100 MG/10 ML UDC GT SCH (08:23)
[2023-03-22] MEDS: CHOLECALCIFEROL (VITAMIN D 3) 400 UNIT TABLET GT SCH (08:24)
[2023-03-22] MEDS: AMLODIPINE BESYLATE 10 MG TABLET GT SCH (08:24)
[2023-03-22] MEDS: CEFEPIME 2 GM in IV D5W 100 ML IV SCH ×2 (08:25→21:16)
[2023-03-22] MEDS: PROSOURCE / PROSTAT (PYXIS) 30 ML UDC GT SCH (09:56)
[2023-03-22 16:00] VITALS: BP 120/75
--- NOTE | 2023-03-22 16:05 | NUR ---
RN NOTE DRESSING DONE AT UPPER BACK WITH SMALL PURULENT DISCHARGE NOTED. WOUND CULTURE TAKEN. LABORATORY INFORMED. WILL CONTINUE TO MONITOR PATIENT
[2023-03-22] MEDS: FERROUS SULFATE (325 MG) 325 MG/TAB TABLET GT SCH (17:09)
[2023-03-22 17:31] VITALS: BP 120/75
--- NOTE | 2023-03-22 18:44 | NUR ---
MS RN OPENING NOTES PATIENT IN BED, A/O X 2, WITH EPISODES OF CONFUSION. NO S/S OF PAIN NOTED AT THIS TIME. ON ROOM AIR, BREATHING EVEN AND UNLABORED, NO DISTRESS OR SOB NOTED. IV ACCESS LEFT THUMB #20G RUNNING NS @ 75ML/HR. G-TUBE RUNNING JEVITY @ 70ML/HR. DRESSING DONE. DUE MEDICATIONS ADMINISTERED. ALL NEEDS ATTENDED AND ANTICIPATED. SAFETY MEASURES IN PLACE WITH BED IN LOWEST LOCKED POSITION. SIDE RAILS UP X2 . CALL LIGHT AND TRAY WITHIN EASY REACH. 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
--- NOTE | 2023-03-22 19:45 | NUR ---
MS RN OPENING NOTES RECEIVED PATIENT IN BED AWAKE AND ALERT. A/O X 2, SOME CONFUSION. NO S/S OF PAIN NOTED AT THIS TIME. ON ROOM AIR, BREATHING EVEN AND UNLABORED, NO DISTRESS OR SOB NOTED. IV ACCESS LEFT THUMB #20 RUNNING NS @ 75ML/HR. CONTINUOUS G-TUBE RUNNING JEVITY @ 70ML/HR. SAFETY MEASURES IN PLACE WITH BED IN LOWEST LOCKED POSITION. SIDE RAILS UP.CALL LIGHT AND TRAY WITHIN EASY REACH. WILL CONTINUE TO MONITOR WITH THE PLAN OF CARE.
[2023-03-22 20:00] VITALS: BP 119/64
[2023-03-22] MEDS: ATORVASTATIN 10 MG TABLET GT SCH (21:16)
[2023-03-22] MEDS: ENOXAPARIN SODIUM 40 MG/0.4 ML DISP.SYRIN SQ SCH (21:21)
[2023-03-22] MEDS: IV NS 0.9% 1,000 ML IV PRN ×2 (21:35)
--- NOTE | 2023-03-23 07:40 | NUR ---
MS RN OPENING NOTES RECEIVED PATIENT AWAKE IN BED , A/O X 2, WITH SOME CONFUSION. NO S/S OF PAIN NOTED AT THIS TIME. ON ROOM AIR, WITH EVEN AND NONLABORED BREATHING, NO DISTRESS OR SOB NOTED. IV ACCESS LEFT THUMB #20 RUNNING NS @ 75 ML/HR. G-TUBE RUNNING JEVITY @ 70ML/HR. SAFETY MEASURES IN PLACE WITH BED IN LOWEST LOCKED POSITION. SIDE RAILS UP. CALL LIGHT AND TRAY WITHIN EASY REACH. WILL CONTINUE TO MONITOR THE PATIENT THROUGHOUT THE SHIFT.
[2023-03-23 08:00] VITALS: BP 109/66
[2023-03-23] MEDS: DOCUSATE SODIUM LIQ 100 MG/10 ML UDC GT SCH (09:01)
[2023-03-23] MEDS: AMLODIPINE BESYLATE 10 MG TABLET GT SCH (09:02)
[2023-03-23] MEDS: LEVOTHYROXINE SODIUM 50 MCG TABLET GT SCH (09:02)
[2023-03-23] MEDS: CHOLECALCIFEROL (VITAMIN D 3) 400 UNIT TABLET GT SCH (09:02)
[2023-03-23] MEDS: DIVALPROEX SODIUM 500 MG TABLET.DR PO SCH ×3 (09:02→17:03)
[2023-03-23] MEDS: HALOPERIDOL 5 MG TABLET GT SCH ×2 (09:02→17:05)
[2023-03-23] MEDS: PROSOURCE / PROSTAT (PYXIS) 30 ML UDC GT SCH (09:05)
[2023-03-23] MEDS: CEFEPIME 2 GM in IV D5W 100 ML IV SCH ×2 (09:39→21:18)
--- NOTE | 2023-03-23 11:30 | NUR ---
RN NOTES SEEN AND EXAMINED BY DR. BRADSHAW, SCHEDULED FOR I&D TOMORROW.
[2023-03-23 16:00] VITALS: BP 127/67
[2023-03-23] MEDS: FERROUS SULFATE (325 MG) 325 MG/TAB TABLET GT SCH (17:03)
--- NOTE | 2023-03-23 18:38 | NUR ---
MS RN CLOSING NOTES PATIENT AWAKE IN BED , A/O X 2, WITH SOME CONFUSION. NO S/S OF PAIN NOTED AT THIS TIME. ON ROOM AIR, WITH EVEN AND NONLABORED BREATHING, NO DISTRESS OR SOB NOTED. IV ACCESS LEFT THUMB #20 RUNNING NS @ 75 ML/HR. G-TUBE RUNNING JEVITY @ 70ML/HR. DUE MEDS GIVEN. SAFETY MEASURES IN PLACE WITH BED IN LOWEST LOCKED POSITION. SIDE RAILS UP. CALL LIGHT AND TRAY WITHIN EASY REACH. WILL ENDORSE TO PM SHIFT FOR NAKIA.
--- NOTE | 2023-03-23 19:32 | NUR ---
RN OPENING NOTE PATIENT AWAKE IN BED. A/OX2. NO S/S OF DISTRESS, BREATHING WITHOUT DIFFICULTY ON ROOM AIR. L-THUMB #20 INTACT AND PATENT W/ NS 75ML/HR. JEVITY 1.2 70ML/HR. SAFETY MEASURES IN PLACE: BED LOCKED AND AT LOWEST POSITION, RAILS UP X2, CALL LUEVANO WITHIN REACH. WILL CONTINUE TO MONITOR PATIENT.
[2023-03-23 20:00] VITALS: BP 122/67
[2023-03-23] MEDS: ATORVASTATIN 10 MG TABLET GT SCH (21:18)
[2023-03-23] MEDS: ENOXAPARIN SODIUM 40 MG/0.4 ML DISP.SYRIN SQ SCH (21:19)
[2023-03-23] MEDS: IV NS 0.9% 1,000 ML IV PRN (22:08)
[2023-03-23] MEDS: JEVITY 1.2 CAL 1,000 ML BOTTLE GT PRN (22:08)
--- NOTE | 2023-03-24 06:51 | NUR ---
RN CLOSING NOTE PATIENT RESTING IN BED. A/OX2. NO S/S OF DISTRESS, BREATHING WITHOUT DIFFICULTY ON ROOM AIR. L-THUMB #20 INTACT AND PATENT W/ NS 75ML/HR. SAFETY MEASURES IN PLACE: BED LOCKED AND AT LOWEST POSITION, RAILS UP X2, CALL LUEVANO WITHIN REACH. WILL ENDORSE TO NEXT SHIFT FOR NAKIA. Addendum: 03/24/23 at 0654 by JENNY LUNA RN JEVITY 1.2 RUNNING AT 70ML/HR
[2023-03-24 07:00] VITALS: BP 106/61
--- NOTE | 2023-03-24 07:29 | NUR ---
MS RN OPENING NOTE Patient in bed, awake. A/O x 2. No pain or discomfort noted at this time. On room air, tolerating well. IV access in the left hand #20g running NS at 75ml/hr, infusing well. On GT feeding, Jevity 1.2ml/hr, tolerating well. Safety precautions maintained: bed in lowest locked precautions, side rails up x 3, call light within easy reach. Will continue to monitor.
[2023-03-24] MEDS: LEVOTHYROXINE SODIUM 50 MCG TABLET GT SCH (07:42)
[2023-03-24] MEDS: PROSOURCE / PROSTAT (PYXIS) 30 ML UDC GT SCH (08:56)
[2023-03-24] MEDS: DIVALPROEX SODIUM 500 MG TABLET.DR PO SCH ×3 (08:56→17:26)
[2023-03-24] MEDS: HALOPERIDOL 5 MG TABLET GT SCH ×2 (08:56→17:26)
[2023-03-24] MEDS: CHOLECALCIFEROL (VITAMIN D 3) 400 UNIT TABLET GT SCH (08:56)
[2023-03-24] MEDS: CEFEPIME 2 GM in IV D5W 100 ML IV SCH ×2 (08:56→21:19)
[2023-03-24] MEDS: DOCUSATE SODIUM LIQ 100 MG/10 ML UDC GT SCH (08:56)
[2023-03-24] MEDS: AMLODIPINE BESYLATE 10 MG TABLET GT SCH (08:57)
[2023-03-24] MEDS: JEVITY 1.2 CAL 1,000 ML BOTTLE GT PRN (14:00)
[2023-03-24] MEDS ORDERED: VANCOMYCIN 1.5 GM in IV D5W 500ml IV ONE (15:00)
[2023-03-24 16:00] VITALS: BP 120/60
[2023-03-24] MEDS: FERROUS SULFATE (325 MG) 325 MG/TAB TABLET GT SCH (17:26)
--- NOTE | 2023-03-24 18:54 | NUR ---
MS RN CLOSING NOTE Patient resting in bed. A/O x 2. No pain or discomfort noted within the shift. On room air, tolerating well. IV access in the left hand #20g running NS at 75ml/hr, infusing well. On GT feeding, Jevity 1.2ml/hr, tolerating well. Needs attended. Safety precautions maintained: bed in lowest locked position, side rails up x 3, call light within easy reach. 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
--- NOTE | 2023-03-24 19:28 | NUR ---
RN OPENING NOTE PATIENT RESTING IN BED. A/OX2. NO S/S OF DISTRESS, BREATHING WITHOUT DIFFICULTLY ON ROOM AIR. L-HAND #20 INTACT AND PATENT W/ NS 75ML/HR. JEVITY 1.2 RUNNING AT 70ML/HR. SAFETY MEASURES IN PLACE: BED LOCKED AND AT LOWEST POSITION, RAILS UP X2, CALL LUEVANO WITHIN REACH. WILL CONTINUE TO MONITOR PATIENT.
[2023-03-24 20:00] VITALS: BP 109/64
[2023-03-24] MEDS: ATORVASTATIN 10 MG TABLET GT SCH (21:19)
[2023-03-24] MEDS: ENOXAPARIN SODIUM 40 MG/0.4 ML DISP.SYRIN SQ SCH (21:20)
[2023-03-24] MEDS: IV NS 0.9% 1,000 ML IV PRN (22:18)
[2023-03-25] MEDS: VANCOMYCIN 1 GM in IV D5W 250ml IV SCH ×2 (03:18→14:25)
--- NOTE | 2023-03-25 06:53 | NUR ---
RN CLOSING NOTE PATIENT ASLEEP IN BED. A/OX2. NO S/S OF DISTRESS, BREATHING WITHOUT DIFFICULTY ON ROOM AIR. L-THUMB/HAND #20 INTACT AND PATENT W/ NS 75ML/HR. JEVITY 1.2 @70ML/HR; TOLERATING FEEDING WELL W/ NO NOTED RESIDUAL. SAFETY MEASURES IN PLACE: BED LOCKED AND AT LOWEST POSITION, RAILS UP X2, CALL LUEVANO WITHIN REACH. WILL ENDORSE TO NEXT SHIFT FOR NAKIA.
--- NOTE | 2023-03-25 07:30 | NUR ---
MS RN OPENING NOTES RECEIVED PATIENT ON BED, AWAKE AND A/O X2. ON ROOM AIR TOLERATING WELL. NO SOB NOTED. NOT IN DISTRESS. WITH IV ACCESS AT THE LEFT HAND G20 WITH IVF NS AT 75ML/HR INFUSING WELL. ON JEVITY 1.2 AT 70ML/HR VIA G-TUBE FEEDING RUNNING WELL. SAFETY MEASURES IN PLACED. CALL LIGHT WITHIN REACH. BED ON LOWEST LOCKED POSITION, SIDE RAILS UP X2. WILL CONTINUE TO MONITOR.
[2023-03-25 08:00] VITALS: BP 134/75
[2023-03-25 09:17] LABS: CALCIUM, SERUM 8.5 mg/dL (8.5-10.1); CARBON DIOXIDE 31 mmol/L (21-32); CHLORIDE 104 mmol/L (98-107); CREATININE 0.5 mg/dL (0.6-1.3); GLUCOSE 109 mg/dL (74-106); POTASSIUM 4.1 mmol/L (3.5-5.1); SODIUM SERUM 139 mmol/L (136-145); UREA NITROGEN, BLOOD 16 mg/dL (7-18)
[2023-03-25] MEDS: DOCUSATE SODIUM LIQ 100 MG/10 ML UDC GT SCH (09:25)
[2023-03-25] MEDS: CHOLECALCIFEROL (VITAMIN D 3) 400 UNIT TABLET GT SCH (09:25)
[2023-03-25] MEDS: DIVALPROEX SODIUM 500 MG TABLET.DR PO SCH ×3 (09:25→17:19)
[2023-03-25] MEDS: PROSOURCE / PROSTAT (PYXIS) 30 ML UDC GT SCH (09:25)
[2023-03-25] MEDS: HALOPERIDOL 5 MG TABLET GT SCH ×2 (09:25→17:19)
[2023-03-25] MEDS: AMLODIPINE BESYLATE 10 MG TABLET GT SCH (09:26)
[2023-03-25] MEDS: CEFEPIME 2 GM in IV D5W 100 ML IV SCH ×2 (09:26→21:07)
[2023-03-25] MEDS: LEVOTHYROXINE SODIUM 50 MCG TABLET GT SCH (09:26)
[2023-03-25] MEDS: JEVITY 1.2 CAL 1,000 ML BOTTLE GT PRN (09:49)
[2023-03-25 16:00] VITALS: BP 108/60
[2023-03-25] MEDS: FERROUS SULFATE (325 MG) 325 MG/TAB TABLET GT SCH (17:19)
--- NOTE | 2023-03-25 18:32 | NUR ---
MS RN CLOSING NOTES PATIENT ON BED, AWAKE AND A/O X2. ON ROOM AIR TOLERATING WELL. NO SOB NOTED. NOT IN DISTRESS. WITH IV ACCESS AT THE LEFT HAND G20 WITH IVF NS AT 75ML/HR INFUSING WELL. ON JEVITY 1.2 AT 70ML/HR VIA G-TUBE FEEDING RUNNING WELL. WOUND DRESSING DONE. DUE MEDS GIVEN. SAFETY MEASURES IN PLACED. CALL LIGHT WITHIN REACH. BED ON LOWEST LOCKED POSITION, SIDE RAILS UP X2. WILL ENDORSE TO NEXT SHIFT FOR NAKIA.
[2023-03-25 20:00] VITALS: BP 105/55
--- NOTE | 2023-03-25 20:15 | NUR ---
MS/TELE/RN PATIENT IS AWAKE, ALERT, AND ORIENTED, APPEARS COMFORTABLE, NO C/O PAIN, NO SIGNS OF DISTRESS NOTED, G TUBE FEEDING INFUSING WELL, NO RESIDUAL NOTED, HOB ELEVATED, FALL PRECAUTIONS PER PROTOCOL IMPLEMENTED, CALL LIGHT IN REACH, WILL MONITOR.
[2023-03-25] MEDS: ATORVASTATIN 10 MG TABLET GT SCH (21:07)
[2023-03-25] MEDS: ENOXAPARIN SODIUM 40 MG/0.4 ML DISP.SYRIN SQ SCH (21:07)
[2023-03-26] MEDS: JEVITY 1.2 CAL 1,000 ML BOTTLE GT PRN (01:35)
[2023-03-26] MEDS: VANCOMYCIN 1 GM in IV D5W 250ml IV SCH (03:03)
[2023-03-26] MEDS: IV NS 0.9% 1,000 ML IV PRN (05:40)
[2023-03-26 06:16] LABS: CALCIUM, SERUM 8.9 mg/dL (8.5-10.1); CARBON DIOXIDE 29 mmol/L (21-32); CHLORIDE 107 mmol/L (98-107); CREATININE 0.5 mg/dL (0.6-1.3); GLUCOSE 94 mg/dL (74-106); POTASSIUM 4.5 mmol/L (3.5-5.1); SODIUM SERUM 140 mmol/L (136-145); UREA NITROGEN, BLOOD 15 mg/dL (7-18)
--- NOTE | 2023-03-26 06:42 | NUR ---
MS/TELE/RN PATIENT IS AWAKE, APPEARS COMFORTABLE, NO C/O PAIN, NO DISTRESS NOTED, CALL LIGHT IN REACH, ALL NEEDS ATTENDED AT THIS TIME, WILL CONTINUE TO MONITOR.
[2023-03-26 07:00] VITALS: BP 106/54
[2023-03-26] MEDS: DOCUSATE SODIUM LIQ 100 MG/10 ML UDC GT SCH (08:14)
[2023-03-26] MEDS: LEVOTHYROXINE SODIUM 50 MCG TABLET GT SCH (08:14)
[2023-03-26] MEDS: HALOPERIDOL 5 MG TABLET GT SCH (08:14)
[2023-03-26] MEDS: CHOLECALCIFEROL (VITAMIN D 3) 400 UNIT TABLET GT SCH (08:14)
[2023-03-26] MEDS: AMLODIPINE BESYLATE 10 MG TABLET GT SCH (08:19)
[2023-03-26] MEDS: DIVALPROEX SODIUM 500 MG TABLET.DR PO SCH (08:19)
[2023-03-26] MEDS: CEFEPIME 2 GM in IV D5W 100 ML IV SCH (08:27)
[2023-03-26] MEDS: PROSOURCE / PROSTAT (PYXIS) 30 ML UDC GT SCH (08:39)
[2023-03-26 10:00] VITALS: BP 106/54
[2023-03-26] MEDS ORDERED: CEPH500C2 PO (10:46)
--- NOTE | 2023-03-26 16:15 | NUR ---
PT TRANSFERRED FROM SNF DISCHARGE INSTRUCTIONS GIVEN ORDERED. ALL QUESTIONS AND CONCERNS ADDRESSED. PATIENT VERBALIZED UNDERSTANDING. IV REMOVED WITH CATHETER INTACT, PRESSURE DRESSING APPLIED. MEDICATION RECONCILIATION FORM COMPLETED AND COPY GIVEN TO PATIENT. REPORT GIVEN TO [facility]INT[facility] AT [facility]. PATIENT TRANSPORTED BY AMBULANCE WITH ALL PERSONAL BELONGINGS. NO DISTRESS NOTED AT TIME OF DEPARTURE.
== END 2023-03-26 17:38 | DRG 602 ==
LOC: ER 15:25 → MED 19:12
PROVIDERS: ADMIT Nurse Practitioner Acute Care; ATTEND Internal Medicine
DX: L02.212 Cutaneous abscess of back [any part, except buttock and flank] (principal); G93.41 Metabolic encephalopathy; G40.909 Epilepsy, unspecified, not intractable, without status epilepticus; F03.90 Unspecified dementia, unspecified severity, without behavioral disturbance, psychotic disturbance, mood disturbance, and anxiety; E03.9 Hypothyroidism, unspecified; D63.8 Anemia in other chronic diseases classified elsewhere; I10 Essential (primary) hypertension; F20.9 Schizophrenia, unspecified; E78.5 Hyperlipidemia, unspecified; I25.10 Atherosclerotic heart disease of native coronary artery without angina pectoris; J20.9 Acute bronchitis, unspecified; Z79.899 Other long term (current) drug therapy; Z22.321 Carrier or suspected carrier of Methicillin susceptible Staphylococcus aureus
CPT/HCPCS: 36415; 71045-TC; 71250-TC; 80048-TC; 80061-TC; 80076-TC; 80202-TC; 83605-TC; 83735-TC; 84100-TC; 85025-TC; 85730-TC; 86480; 87040-TC; 87081-TC; A4223; A6253; A6403; G0378; J0692; J1650; J3370; J7030; J7060

== ENCOUNTER 2023-05-13 20:41 | Emergency (ER) | payer MEDICARE, OTHER ==
[~2023-05-13] VITALS: Ht 185.4 cm; Wt 88.5 kg
[~2023-05-13 20:41] MED LIST changes: +AMIN30LI2 GT; +ASCO-352 GT; +BENZ0.5T43 GT; -BENZ2AMP3 PO; -CEFE2FRO IV; +CEPH500C2 PO; -CRAN425C6 PO; +DIVA125C5 GT; -DIVA500T2 PO; -FERR325T23 PO; +LACT100027 GT; +MULT-447 GT; -PALI117D IM; +PALI156D IM; +PETR113O TP; +VANC1VIA4 IV
[2023-05-13 23:29] VITALS: BP 121/77; TEMP 98; O2SAT 98
== END 2023-05-13 23:29 | disposition home or self-care (01) ==
LOC: ER 20:53
DX: S09.8XXA Other specified injuries of head, initial encounter (principal); F03.90 Unspecified dementia, unspecified severity, without behavioral disturbance, psychotic disturbance, mood disturbance, and anxiety; I10 Essential (primary) hypertension; E03.9 Hypothyroidism, unspecified; D64.9 Anemia, unspecified; Z79.899 Other long term (current) drug therapy; W18.39XA Other fall on same level, initial encounter; Y93.89 Activity, other specified; Y92.89 Other specified places as the place of occurrence of the external cause; Y99.8 Other external cause status
CPT/HCPCS: 70450-TC

== ENCOUNTER 2023-09-19 02:30 | Inpatient (IN) | payer MEDICARE, OTHER ==
[2023-09-19] VITALS (52 sets, daily range): BP systolic 94–120; BP diastolic 60–84; TEMP 97.1–98.4; O2SAT 86–98
[~2023-09-19] VITALS: Ht 185.4 cm; Wt 84.1 kg
[~2023-09-19 02:30] MED LIST changes: +ACET-868 GT; -ACET-868 PO; +HALO5TAB8 GT; -HALO5TAB8 PO
[2023-09-19] MEDS ORDERED: VANCOMYCIN 1 GM /D5W 250 ML PB IV ONE (02:52)
[2023-09-19] MEDS ORDERED: PIPERACI/TAZO 3.375GM/D5W 50ML PB IV ONE (02:53)
[2023-09-19] MEDS ORDERED: PIPERACILLIN /TAZOBACTAM 3.375 G in IV D5W 50 ML IV ONE (03:00)
[2023-09-19] MEDS ORDERED: IV NS 0.9% 500 ML BAG IV ONE (03:00)
[2023-09-19] MEDS ORDERED: VANCOMYCIN 1 GM in IV D5W 250 ML IV ONE (03:00)
[2023-09-19 03:08] LABS: BASOPHILS % (AUTO) 0.2 % (0.0-2.0); EOSINOPHILS % (AUTO) 0.1 % (0.0-6.0); HEMATOCRIT 39 % (39-51); LYMPHOCYTES # (AUTO) 0.4 K/uL (0.8-4.8); LYMPHOCYTES % (AUTO) 7.3 % (20.0-44.0); MEAN CORPUSCULAR HEMOGLOBIN 31 PG (26.0-33.0); MEAN CORPUSCULAR HGB CONC 33 g/dl (31.0-36.0); MEAN CORPUSCULAR VOLUME 93 fL (80-96); MONOCYTES # (AUTO) 0.3 K/uL (0.1-1.30); MONOCYTES % (AUTO) 5.3 % (2.0-12.0); NEUTROPHILS # (AUTO) 4.2 K/uL (1.8-8.9); NEUTROPHILS % (AUTO) 87.1 % (43.0-81.0); PLATELET COUNT (AUTO) 351 K/uL (150-450); RED BLOOD CELL COUNT(AUTO) 4.21 MIL/uL (4.5-6.0); WHITE BLOOD COUNT (AUTO) 4.8 K/uL (4.3-11.0)
[2023-09-19 03:22] LABS: CARBON DIOXIDE 31 mmol/L (21-32); CHLORIDE 98 mmol/L (98-107); CREATININE 1.6 mg/dL (0.6-1.3); GLUCOSE 116 mg/dL (74-106); SODIUM SERUM 137 mmol/L (136-145); UREA NITROGEN, BLOOD 34 mg/dL (7-18)
[2023-09-19 03:27] LABS: POTASSIUM 6.7 mmol/L (3.5-5.1)
[2023-09-19 03:28] LABS: ALANINE AMINOTRANSFERASE 42 U/L (12-78); ALBUMIN 2.9 g/dL (3.4-5.0); ALKALINE PHOSPHATASE 127 U/L (46-116); ASPARTATE AMINOTRANSFERASE 81 U/L (15-37); BILIRUBIN,TOTAL 0.4 mg/dL (0.2-1.0); TOTAL PROTEIN, SERUM 8.3 g/dL (6.4-8.2)
[2023-09-19] MEDS ORDERED: ONDANSETRON HCL/PF 4 MG/2 ML VIAL IV ONE (03:30)
[2023-09-19] MEDS ORDERED: ALBUTEROL FS 2.5 MG/3 ML VIAL.NEB NEB ONE (03:30)
[2023-09-19] MEDS ORDERED: IV NS 0.9% 1,000 ML BAG IV ONE (03:30)
[2023-09-19] MEDS ORDERED: CALCIUM CHLORIDE 1,000 MG/10 ML DISP.SYRIN IV ONE (03:30)
[2023-09-19 03:35] LABS: INR 1.02 (0.91-1.10); PARTIAL THROMBOPLASTIN TIME 29.3 SEC (24.3-34.3); PROTHROMBIN TIME 10.8 SECS (9.2-11.1)
[2023-09-19] MEDS ORDERED: ALBUTEROL FS 2.5 MG/3 ML VIAL.NEB ONE (03:35)
[2023-09-19] MEDS ORDERED: CALCIUM CHLORIDE 1,000 MG/10 ML DISP.SYRIN ONE (03:37)
[2023-09-19] MEDS ORDERED: ONDANSETRON HCL/PF 4 MG/2 ML VIAL ONE (03:37)
[2023-09-19 04:23] LABS: LACTIC ACID 4.8 mmol/L (0.4-2.0)
[2023-09-19 04:31] LABS: APPEARANCE,URINE CLOUDY (CLEAR); BILIRUBIN,URINE NEGATIVE (NEGATIVE); BLOOD, URINE TRACE-INTA Ery/uL (NEGATIVE); COLOR,URINE DARK YELLOW (YELLOW); KETONES,URINE NEGATIVE (NEGATIVE); LEUKOCYTE ESTERASE ,URINE 3+ (NEGATIVE); NITRITE, URINE NEGATIVE (NEGATIVE); PH,URINE 6.5 (5.0-8.0); PROTEIN,URINE TRACE mg/dl (NEGATIVE); UGLUCOSE NEGATIVE (NEGATIVE)
[2023-09-19 04:33] LABS: ADD URINE CULTURE YES; BACTERIA,URINE Rare /HPF (None Seen); SQUAMOUS EPITHELIAL CELL,UR Few /HPF (None Seen)
[2023-09-19] MEDS ORDERED: MAGNESIUM HYDROXIDE 30 ML UDC PO PRN (06:00)
[2023-09-19] MEDS ORDERED: MAG HYDROX/AL HYDROX/SIMETH 30 ML UDC PO PRN (06:00)
[2023-09-19] MEDS ORDERED: Z GUARD REMEDY 4 OZ OINT TP PRN ×2 (06:00→17:00)
[2023-09-19] MEDS ORDERED: INSULIN REGULAR, HUMAN 100 UNIT/ML 10 ML VIAL IV ONE (06:00)
[2023-09-19] MEDS ORDERED: ONDANSETRON HCL/PF 4 MG/2 ML VIAL IVP PRN ×2 (06:00→17:00)
[2023-09-19] MEDS ORDERED: ACETAMINOPHEN 325 MG TABLET PO PRN ×2 (06:00→17:00)
[2023-09-19] MEDS ORDERED: PIPERACILLIN /TAZOBACTAM 3.375 G in IV D5W 50 ML IV SCH (06:00)
[2023-09-19] MEDS ORDERED: IV NS 0.9% 1,000 ML IV PRN (06:00)
[2023-09-19] MEDS ORDERED: DEXTROSE 50%-WATER 50 ML DISP.SYRIN IV ONE (06:00)
[2023-09-19] MEDS ORDERED: DEXTROSE 50%-WATER 50 ML DISP.SYRIN ONE ×2 (07:01→09:22)
[2023-09-19] MEDS ORDERED: INSULIN REGULAR, HUMAN 100 UNIT/ML 10 ML VIAL ONE (07:01)
[2023-09-19] MEDS ORDERED: ACET-868 GT (08:04)
[2023-09-19] MEDS ORDERED: POVI3780 TP (08:04)
[2023-09-19] MEDS ORDERED: TRIA15OI2 TP (08:04)
[2023-09-19] MEDS ORDERED: ZINC50TA69 GT (08:04)
[2023-09-19] MEDS: NOREPINEPHRINE 8 MG in IV NS 0.9% 242 ML IV PRN ×3 (08:08→22:41)
[2023-09-19 08:19] LABS: CALCIUM, SERUM 9.9 mg/dL (8.5-10.1); CARBON DIOXIDE 29 mmol/L (21-32); CHLORIDE 105 mmol/L (98-107); CREATININE 1.8 mg/dL (0.6-1.3); POTASSIUM 4.4 mmol/L (3.5-5.1); SODIUM SERUM 143 mmol/L (136-145); UREA NITROGEN, BLOOD 34 mg/dL (7-18)
[2023-09-19 08:24] LABS: GLUCOSE 50 mg/dL (74-106)
[2023-09-19] MEDS ORDERED: PANTOPRAZOLE 40 MG VIAL IV SCH (09:00)
[2023-09-19] MEDS ORDERED: PANTOPRAZOLE 40 MG VIAL ONE (09:47)
[2023-09-19] MEDS ORDERED: IV D5/ 0.9% NACL 1,000 ML IV SCH (10:00)
[2023-09-19] MEDS ORDERED: DEXTROSE 50%-WATER 50 ML DISP.SYRIN IVP ONE (10:00)
[2023-09-19] MEDS: IV D5/ 0.9% NACL 1,000 ML IV PRN ×2 (11:30→17:16)
[2023-09-19] MEDS ORDERED: PIPERACILLIN /TAZOBACTAM 3.375 G in IV D5W 100 ML IV SCH (12:00)
[2023-09-19] MEDS ORDERED: NA PHOS,M-B/NA PHOS,DI-BA 1 EA ENEMA RC PRN (17:00)
[2023-09-19] MEDS ORDERED: BISACODYL SUPP (10 MG) 10 MG/SUPP.RECT SUPP.RECT RC PRN (17:00)
[2023-09-19] MEDS: ENOXAPARIN SODIUM 40 MG/0.4 ML DISP.SYRIN SQ SCH (17:43)
[2023-09-19] MEDS: PIPERACILLIN /TAZOBACTAM 2.25 G in IV D5W 50 ML IV SCH (20:11)
[2023-09-20] VITALS (87 sets, daily range): BP systolic 91–119; BP diastolic 49–83; TEMP 98.3–98.9; O2SAT 94–99
[2023-09-20] MEDS ORDERED: VANCOMYCIN 1 GM in IV D5W 250ml IV SCH (04:00)
[2023-09-20] MEDS: PIPERACILLIN /TAZOBACTAM 2.25 G in IV D5W 50 ML IV SCH (04:27)
[2023-09-20 04:46] LABS: BASOPHILS % (AUTO) 0.1 % (0.0-2.0); EOSINOPHILS % (AUTO) 0.1 % (0.0-6.0); HEMATOCRIT 29 % (39-51); HEMOGLOBIN 9.4 g/dL (13.5-17.5); LYMPHOCYTES # (AUTO) 0.6 K/uL (0.8-4.8); LYMPHOCYTES % (AUTO) 5.8 % (20.0-44.0); MEAN CORPUSCULAR HEMOGLOBIN 31 PG (26.0-33.0); MEAN CORPUSCULAR HGB CONC 33 g/dl (31.0-36.0); MEAN CORPUSCULAR VOLUME 95 fL (80-96); MONOCYTES # (AUTO) 0.7 K/uL (0.1-1.30); MONOCYTES % (AUTO) 6.3 % (2.0-12.0); NEUTROPHILS # (AUTO) 9.4 K/uL (1.8-8.9); NEUTROPHILS % (AUTO) 87.7 % (43.0-81.0); PLATELET COUNT (AUTO) 224 K/uL (150-450); RED BLOOD CELL COUNT(AUTO) 3.03 MIL/uL (4.5-6.0); RED CELL DISTRIBUTION WIDTH 16.1 % (11.5-15.0); WHITE BLOOD COUNT (AUTO) 10.7 K/uL (4.3-11.0)
[2023-09-20] MEDS: IV D5/ 0.9% NACL 1,000 ML IV PRN ×2 (05:14→18:45)
[2023-09-20 05:24] LABS: CALCIUM, SERUM 8.6 mg/dL (8.5-10.1); CARBON DIOXIDE 29 mmol/L (21-32); CHLORIDE 107 mmol/L (98-107); CREATININE 1.4 mg/dL (0.6-1.3); GLUCOSE 94 mg/dL (74-106); MAGNESIUM 2.1 mg/dL (1.8-2.4); PHOSPHORUS 4.9 mg/dL (2.5-4.9); POTASSIUM 4.2 mmol/L (3.5-5.1); SODIUM SERUM 144 mmol/L (136-145); UREA NITROGEN, BLOOD 30 mg/dL (7-18)
[2023-09-20 05:33] LABS: CHOLESTEROL 107 mg/dL (<200); HDL CHOLESTEROL 51 mg/dL (40-60); LDL 36 mg/dL (0-99); TRIGLYCERIDES 53 mg/dL (30-150)
[2023-09-20] MEDS: NOREPINEPHRINE 8 MG in IV NS 0.9% 242 ML IV PRN ×2 (05:59→13:34)
[2023-09-20] MEDS: SORBITOL SOLUTION 70% 30 ML SOLUTION PO SCH (09:00)
[2023-09-20] MEDS: PANTOPRAZOLE 40 MG VIAL IV SCH (10:52)
[2023-09-20] MEDS ORDERED: SILVER NITRATE APPLICATOR 1 EA BOX TP SCH (11:30)
[2023-09-20] MEDS: ZOSYN IVPB 3.375 G in IV D5W 50ml IV SCH ×2 (12:51→18:39)
[2023-09-20] MEDS: NOREPINEPHRINE 32 MG in IV NS 0.9% 250 ML IV PRN (15:00)
[2023-09-20] MEDS: ENOXAPARIN SODIUM 40 MG/0.4 ML DISP.SYRIN SQ SCH (17:19)
[2023-09-21] VITALS (105 sets, daily range): BP systolic 100–134; BP diastolic 48–74; TEMP 97.9–100; O2SAT 95–100
[2023-09-21] MEDS: ZOSYN IVPB 3.375 G in IV D5W 50ml IV SCH ×4 (00:09→18:47)
[2023-09-21 04:09] LABS: BASOPHILS % (AUTO) 0.2 % (0.0-2.0); EOSINOPHILS # (AUTO) 0.1 K/uL (0.0-0.7); EOSINOPHILS % (AUTO) 1.1 % (0.0-6.0); HEMATOCRIT 25 % (39-51); HEMOGLOBIN 8.2 g/dL (13.5-17.5); LYMPHOCYTES # (AUTO) 0.8 K/uL (0.8-4.8); LYMPHOCYTES % (AUTO) 8.7 % (20.0-44.0); MEAN CORPUSCULAR HEMOGLOBIN 31 PG (26.0-33.0); MEAN CORPUSCULAR HGB CONC 33 g/dl (31.0-36.0); MEAN CORPUSCULAR VOLUME 95 fL (80-96); MONOCYTES # (AUTO) 0.3 K/uL (0.1-1.30); MONOCYTES % (AUTO) 3.8 % (2.0-12.0); NEUTROPHILS # (AUTO) 7.6 K/uL (1.8-8.9); NEUTROPHILS % (AUTO) 86.2 % (43.0-81.0); PLATELET COUNT (AUTO) 159 K/uL (150-450); RED BLOOD CELL COUNT(AUTO) 2.64 MIL/uL (4.5-6.0); RED CELL DISTRIBUTION WIDTH 15.9 % (11.5-15.0); WHITE BLOOD COUNT (AUTO) 8.8 K/uL (4.3-11.0)
[2023-09-21] MEDS ORDERED: VANCOMYCIN 1.25 GM in IV D5W 250 ML IV SCH (05:00)
[2023-09-21 05:01] LABS: ALBUMIN 1.6 g/dL (3.4-5.0); BILIRUBIN,TOTAL 0.2 mg/dL (0.2-1.0); CALCIUM, SERUM 8.5 mg/dL (8.5-10.1); CREATININE 1.1 mg/dL (0.6-1.3); MAGNESIUM 2.2 mg/dL (1.8-2.4); PHOSPHORUS 3.1 mg/dL (2.5-4.9); POTASSIUM 3.4 mmol/L (3.5-5.1); TOTAL PROTEIN, SERUM 5.6 g/dL (6.4-8.2)
[2023-09-21] MEDS: IV D5/ 0.9% NACL 1,000 ML IV PRN ×2 (06:08→15:10)
[2023-09-21] MEDS ORDERED: ACETAMINOPHEN 650 MG/SUPP.RECT RC PRN (08:30)
[2023-09-21] MEDS: SORBITOL SOLUTION 70% 30 ML SOLUTION PO SCH (08:46)
[2023-09-21] MEDS: PANTOPRAZOLE 40 MG VIAL IV SCH (08:46)
[2023-09-21] MEDS: NEOMY SULF/BACITRAC ZN/POLY 15 GM TUBE TP SCH (08:47)
[2023-09-21] MEDS: POTASSIUM CL. PREMIX PERIPHER. 50 ML IV SCH ×2 (10:19→11:20)
[2023-09-21] MEDS: NOREPINEPHRINE 32 MG in IV NS 0.9% 250 ML IV PRN (15:09)
[2023-09-21] MEDS ORDERED: JEVITY 1.2 CAL 1,000 ML BOTTLE GT PRN (16:30)
[2023-09-21] MEDS: Potassium Chloride 20 MEQ in IV D5/0.45 NACL 1,000 ML IV SCH (16:41)
[2023-09-21] MEDS: VANCOMYCIN HCL 0.75 GM in IV D5W 250 ML IV SCH (16:44)
[2023-09-21] MEDS: ENOXAPARIN SODIUM 40 MG/0.4 ML DISP.SYRIN SQ SCH (17:22)
[2023-09-22] VITALS (53 sets, daily range): BP systolic 98–144; BP diastolic 52–92; TEMP 98–98.3; O2SAT 92–99
[2023-09-22] MEDS: ZOSYN IVPB 3.375 G in IV D5W 50ml IV SCH ×5 (00:30→23:27)
[2023-09-22] MEDS: Potassium Chloride 20 MEQ in IV D5/0.45 NACL 1,000 ML IV SCH ×2 (04:00→16:33)
[2023-09-22] MEDS: VANCOMYCIN HCL 0.75 GM in IV D5W 250 ML IV SCH ×2 (04:01→16:02)
[2023-09-22 04:09] LABS: PTH, INTACT 52 pg/mL (15-65)
[2023-09-22 05:20] LABS: BASOPHILS % (AUTO) 0.3 % (0.0-2.0); EOSINOPHILS # (AUTO) 0.2 K/uL (0.0-0.7); EOSINOPHILS % (AUTO) 2.5 % (0.0-6.0); HEMATOCRIT 24 % (39-51); HEMOGLOBIN 7.8 g/dL (13.5-17.5); LYMPHOCYTES # (AUTO) 0.7 K/uL (0.8-4.8); LYMPHOCYTES % (AUTO) 8.8 % (20.0-44.0); MEAN CORPUSCULAR HEMOGLOBIN 31 PG (26.0-33.0); MEAN CORPUSCULAR HGB CONC 32 g/dl (31.0-36.0); MEAN CORPUSCULAR VOLUME 95 fL (80-96); MONOCYTES # (AUTO) 0.3 K/uL (0.1-1.30); MONOCYTES % (AUTO) 4.4 % (2.0-12.0); NEUTROPHILS # (AUTO) 6.6 K/uL (1.8-8.9); PLATELET COUNT (AUTO) 136 K/uL (150-450); RED BLOOD CELL COUNT(AUTO) 2.55 MIL/uL (4.5-6.0); RED CELL DISTRIBUTION WIDTH 15.5 % (11.5-15.0); WHITE BLOOD COUNT (AUTO) 7.9 K/uL (4.3-11.0)
[2023-09-22 05:40] LABS: CALCIUM, SERUM 8.7 mg/dL (8.5-10.1); CREATININE 1.2 mg/dL (0.6-1.3); MAGNESIUM 2.2 mg/dL (1.8-2.4); PHOSPHORUS 2.6 mg/dL (2.5-4.9); POTASSIUM 3.8 mmol/L (3.5-5.1)
[2023-09-22] MEDS: PANTOPRAZOLE 40 MG VIAL IV SCH (08:37)
[2023-09-22] MEDS: SORBITOL SOLUTION 70% 30 ML SOLUTION PO SCH (08:37)
[2023-09-22] MEDS: NEOMY SULF/BACITRAC ZN/POLY 15 GM TUBE TP SCH (08:38)
[2023-09-22 12:06] LABS: *SPE A/G RATIO 0.6 (0.7-1.7); *SPE ALBUMIN 1.8 g/dL (2.9-4.4); *SPE ALPHA-1-GLOBULIN 0.4 g/dL (0.0-0.4); *SPE ALPHA-2-GLOBULIN 1.1 g/dL (0.4-1.0); *SPE BETA GLOBULIN 0.7 g/dL (0.7-1.3); *SPE M-SPIKE Not Observed g/dL (Not Observed); *SPE PROTEIN TOTAL 4.8 g/dL (6.0-8.5); *SPEGAMMA GLOBULIN 0.8 g/dL (0.4-1.8)
[2023-09-22] MEDS: PROSOURCE / PROSTAT (PYXIS) 30 ML UDC GT SCH ×2 (13:49→16:03)
[2023-09-22] MEDS: ENOXAPARIN SODIUM 40 MG/0.4 ML DISP.SYRIN SQ SCH (16:22)
[2023-09-23] VITALS (42 sets, daily range): BP systolic 107–143; BP diastolic 60–78; TEMP 97.9–98.3; O2SAT 21–98
[2023-09-23] MEDS: JEVITY 1.2 CAL 1,000 ML BOTTLE GT PRN ×2 (02:06→22:20)
[2023-09-23 05:13] LABS: BASOPHILS % (AUTO) 0.4 % (0.0-2.0); EOSINOPHILS # (AUTO) 0.2 K/uL (0.0-0.7); EOSINOPHILS % (AUTO) 2.2 % (0.0-6.0); HEMATOCRIT 24 % (39-51); HEMOGLOBIN 7.8 g/dL (13.5-17.5); LYMPHOCYTES # (AUTO) 0.8 K/uL (0.8-4.8); MEAN CORPUSCULAR HEMOGLOBIN 31 PG (26.0-33.0); MEAN CORPUSCULAR HGB CONC 32 g/dl (31.0-36.0); MEAN CORPUSCULAR VOLUME 95 fL (80-96); MONOCYTES # (AUTO) 0.4 K/uL (0.1-1.30); NEUTROPHILS # (AUTO) 5.7 K/uL (1.8-8.9); NEUTROPHILS % (AUTO) 80.4 % (43.0-81.0); PLATELET COUNT (AUTO) 132 K/uL (150-450); RED BLOOD CELL COUNT(AUTO) 2.52 MIL/uL (4.5-6.0); RED CELL DISTRIBUTION WIDTH 15.5 % (11.5-15.0); WHITE BLOOD COUNT (AUTO) 7.1 K/uL (4.3-11.0)
[2023-09-23 05:18] LABS: CALCIUM, SERUM 8.3 mg/dL (8.5-10.1); CARBON DIOXIDE 26 mmol/L (21-32); CHLORIDE 116 mmol/L (98-107); CREATININE 1.1 mg/dL (0.6-1.3); GLUCOSE 221 mg/dL (74-106); MAGNESIUM 1.9 mg/dL (1.8-2.4); PHOSPHORUS 2.3 mg/dL (2.5-4.9); SODIUM SERUM 148 mmol/L (136-145); UREA NITROGEN, BLOOD 15 mg/dL (7-18)
[2023-09-23] MEDS: Potassium Chloride 20 MEQ in IV D5/0.45 NACL 1,000 ML IV SCH ×2 (05:36→17:47)
[2023-09-23] MEDS: ZOSYN IVPB 3.375 G in IV D5W 50ml IV SCH ×4 (05:45→23:22)
[2023-09-23] MEDS: SORBITOL SOLUTION 70% 30 ML SOLUTION PO SCH (09:00)
[2023-09-23] MEDS ORDERED: IV D5W 1,000 ML IV ONE (09:30)
[2023-09-23] MEDS: PROSOURCE / PROSTAT (PYXIS) 30 ML UDC GT SCH ×3 (10:13→17:50)
[2023-09-23] MEDS: PANTOPRAZOLE 40 MG/PACK PACK GT SCH (10:13)
[2023-09-23] MEDS: NEOMY SULF/BACITRAC ZN/POLY 15 GM TUBE TP SCH (10:19)
[2023-09-23] MEDS ORDERED: NEUTRA PHOS 1 POWD.PACKET NG ONE (16:00)
[2023-09-23] MEDS: VANCOMYCIN 1.25 GM in IV D5W 250 ML IV SCH (17:50)
[2023-09-23] MEDS: ENOXAPARIN SODIUM 40 MG/0.4 ML DISP.SYRIN SQ SCH (17:52)
[2023-09-24] VITALS (36 sets, daily range): BP systolic 35–153; BP diastolic 22–89; TEMP 98–99.3; O2SAT 76–99
[2023-09-24 05:30] LABS: BASOPHILS % (AUTO) 0.3 % (0.0-2.0); EOSINOPHILS # (AUTO) 0.3 K/uL (0.0-0.7); EOSINOPHILS % (AUTO) 3.7 % (0.0-6.0); HEMATOCRIT 24 % (39-51); HEMOGLOBIN 7.9 g/dL (13.5-17.5); LYMPHOCYTES # (AUTO) 0.9 K/uL (0.8-4.8); MEAN CORPUSCULAR HEMOGLOBIN 31 PG (26.0-33.0); MEAN CORPUSCULAR HGB CONC 33 g/dl (31.0-36.0); MEAN CORPUSCULAR VOLUME 94 fL (80-96); MONOCYTES # (AUTO) 0.5 K/uL (0.1-1.30); MONOCYTES % (AUTO) 7.3 % (2.0-12.0); NEUTROPHILS # (AUTO) 5.3 K/uL (1.8-8.9); NEUTROPHILS % (AUTO) 75.7 % (43.0-81.0); PLATELET COUNT (AUTO) 139 K/uL (150-450); RED BLOOD CELL COUNT(AUTO) 2.52 MIL/uL (4.5-6.0)
[2023-09-24] MEDS: ZOSYN IVPB 3.375 G in IV D5W 50ml IV SCH ×3 (05:43→18:28)
[2023-09-24 06:08] LABS: CALCIUM, SERUM 8.1 mg/dL (8.5-10.1); MAGNESIUM 1.9 mg/dL (1.8-2.4); PHOSPHORUS 2.7 mg/dL (2.5-4.9); POTASSIUM 3.7 mmol/L (3.5-5.1)
[2023-09-24] MEDS: Potassium Chloride 20 MEQ in IV D5/0.45 NACL 1,000 ML IV SCH ×2 (06:51→19:31)
[2023-09-24] MEDS: PROSOURCE / PROSTAT (PYXIS) 30 ML UDC GT SCH ×3 (09:25→17:10)
[2023-09-24] MEDS: PANTOPRAZOLE 40 MG/PACK PACK GT SCH (09:26)
[2023-09-24] MEDS: SORBITOL SOLUTION 70% 30 ML SOLUTION PO SCH (09:41)
[2023-09-24] MEDS: NEOMY SULF/BACITRAC ZN/POLY 15 GM TUBE TP SCH (09:43)
[2023-09-24] MEDS: VANCOMYCIN 1.25 GM in IV D5W 250 ML IV SCH (17:10)
[2023-09-24] MEDS: JEVITY 1.2 CAL 1,000 ML BOTTLE GT PRN (18:28)
[2023-09-24] MEDS: ENOXAPARIN SODIUM 40 MG/0.4 ML DISP.SYRIN SQ SCH (18:32)
[2023-09-25] VITALS (19 sets, daily range): BP systolic 103–146; BP diastolic 60–80; TEMP 97.6–100.5; O2SAT 90–100
[2023-09-25] MEDS: ZOSYN IVPB 3.375 G in IV D5W 50ml IV SCH ×4 (00:24→19:50)
[2023-09-25 04:53] LABS: CALCIUM, SERUM 8.3 mg/dL (8.5-10.1); POTASSIUM 3.9 mmol/L (3.5-5.1)
[2023-09-25] MEDS: Potassium Chloride 20 MEQ in IV D5/0.45 NACL 1,000 ML IV SCH ×2 (07:47→17:48)
[2023-09-25] MEDS: PROSOURCE / PROSTAT (PYXIS) 30 ML UDC GT SCH ×3 (08:59→17:40)
[2023-09-25] MEDS: PANTOPRAZOLE 40 MG/PACK PACK GT SCH (08:59)
[2023-09-25] MEDS: NEOMY SULF/BACITRAC ZN/POLY 15 GM TUBE TP SCH (09:00)
[2023-09-25] MEDS: SORBITOL SOLUTION 70% 30 ML SOLUTION PO SCH (09:01)
[2023-09-25] MEDS: JEVITY 1.2 CAL 1,000 ML BOTTLE GT PRN (15:18)
[2023-09-25] MEDS: ENOXAPARIN SODIUM 40 MG/0.4 ML DISP.SYRIN SQ SCH (17:41)
[2023-09-26] VITALS: BP 119/62; TEMP 97.6; O2SAT 95
[2023-09-26] MEDS: ZOSYN IVPB 3.375 G in IV D5W 50ml IV SCH ×5 (00:47→23:37)
[2023-09-26 04:00] VITALS: BP 100/64; TEMP 97.6; O2SAT 93
[2023-09-26 06:58] LABS: BASOPHILS % (AUTO) 0.5 % (0.0-2.0); EOSINOPHILS # (AUTO) 0.6 K/uL (0.0-0.7); EOSINOPHILS % (AUTO) 8.4 % (0.0-6.0); HEMATOCRIT 26 % (39-51); HEMOGLOBIN 8.5 g/dL (13.5-17.5); LYMPHOCYTES # (AUTO) 0.9 K/uL (0.8-4.8); LYMPHOCYTES % (AUTO) 11.3 % (20.0-44.0); MEAN CORPUSCULAR HEMOGLOBIN 30 PG (26.0-33.0); MEAN CORPUSCULAR HGB CONC 33 g/dl (31.0-36.0); MEAN CORPUSCULAR VOLUME 94 fL (80-96); MONOCYTES # (AUTO) 0.3 K/uL (0.1-1.30); MONOCYTES % (AUTO) 4.5 % (2.0-12.0); NEUTROPHILS # (AUTO) 5.8 K/uL (1.8-8.9); NEUTROPHILS % (AUTO) 75.3 % (43.0-81.0); PLATELET COUNT (AUTO) 250 K/uL (150-450); RED BLOOD CELL COUNT(AUTO) 2.79 MIL/uL (4.5-6.0); RED CELL DISTRIBUTION WIDTH 15.4 % (11.5-15.0); WHITE BLOOD COUNT (AUTO) 7.6 K/uL (4.3-11.0)
[2023-09-26] MEDS: PANTOPRAZOLE 40 MG/PACK PACK GT SCH (08:27)
[2023-09-26] MEDS: SORBITOL SOLUTION 70% 30 ML SOLUTION PO SCH (08:27)
[2023-09-26] MEDS: PROSOURCE / PROSTAT (PYXIS) 30 ML UDC GT SCH ×3 (08:27→16:44)
[2023-09-26] MEDS: NEOMY SULF/BACITRAC ZN/POLY 15 GM TUBE TP SCH (08:27)
[2023-09-26] MEDS: JEVITY 1.2 CAL 1,000 ML BOTTLE GT PRN (12:03)
[2023-09-26 16:00] VITALS: BP 133/67; TEMP 98.6; O2SAT 94
[2023-09-26] MEDS: ENOXAPARIN SODIUM 40 MG/0.4 ML DISP.SYRIN SQ SCH (16:46)
[2023-09-26 20:08] VITALS: BP 121/79; TEMP 97.7; O2SAT 95
[2023-09-27 00:46] VITALS: BP 137/74; TEMP 97.7; O2SAT 95
[2023-09-27] MEDS: ZOSYN IVPB 3.375 G in IV D5W 50ml IV SCH ×3 (06:20→17:46)
[2023-09-27 06:27] LABS: BASOPHILS % (AUTO) 0.3 % (0.0-2.0); EOSINOPHILS # (AUTO) 0.5 K/uL (0.0-0.7); EOSINOPHILS % (AUTO) 6.2 % (0.0-6.0); HEMATOCRIT 26 % (39-51); HEMOGLOBIN 8.7 g/dL (13.5-17.5); LYMPHOCYTES # (AUTO) 0.8 K/uL (0.8-4.8); LYMPHOCYTES % (AUTO) 9.8 % (20.0-44.0); MEAN CORPUSCULAR HEMOGLOBIN 31 PG (26.0-33.0); MEAN CORPUSCULAR HGB CONC 33 g/dl (31.0-36.0); MEAN CORPUSCULAR VOLUME 93 fL (80-96); MONOCYTES # (AUTO) 0.4 K/uL (0.1-1.30); MONOCYTES % (AUTO) 4.4 % (2.0-12.0); NEUTROPHILS # (AUTO) 6.5 K/uL (1.8-8.9); NEUTROPHILS % (AUTO) 79.3 % (43.0-81.0); PLATELET COUNT (AUTO) 333 K/uL (150-450); RED BLOOD CELL COUNT(AUTO) 2.84 MIL/uL (4.5-6.0); RED CELL DISTRIBUTION WIDTH 15.1 % (11.5-15.0); WHITE BLOOD COUNT (AUTO) 8.2 K/uL (4.3-11.0)
[2023-09-27 06:44] LABS: BILIRUBIN,TOTAL 0.2 mg/dL (0.2-1.0); CALCIUM, SERUM 8.5 mg/dL (8.5-10.1); CREATININE 0.9 mg/dL (0.6-1.3); MAGNESIUM 2.1 mg/dL (1.8-2.4); PHOSPHORUS 3.5 mg/dL (2.5-4.9); POTASSIUM 3.9 mmol/L (3.5-5.1); TOTAL PROTEIN, SERUM 6.2 g/dL (6.4-8.2)
[2023-09-27 07:26] LABS: ALBUMIN 1.4 g/dL (3.4-5.0)
[2023-09-27] MEDS: PANTOPRAZOLE 40 MG/PACK PACK GT SCH (08:32)
[2023-09-27] MEDS: SORBITOL SOLUTION 70% 30 ML SOLUTION PO SCH (08:32)
[2023-09-27] MEDS: PROSOURCE / PROSTAT (PYXIS) 30 ML UDC GT SCH ×3 (08:32→16:14)
[2023-09-27] MEDS: NEOMY SULF/BACITRAC ZN/POLY 15 GM TUBE TP SCH (08:33)
[2023-09-27] MEDS: JEVITY 1.2 CAL 1,000 ML BOTTLE GT PRN (08:36)
[2023-09-27 09:03] VITALS: BP 105/61; TEMP 98.1; O2SAT 94
[2023-09-27] MEDS: ENOXAPARIN SODIUM 40 MG/0.4 ML DISP.SYRIN SQ SCH (16:15)
[2023-09-27 17:07] VITALS: BP 136/67; TEMP 97.9; O2SAT 97
[2023-09-27 19:00] VITALS: BP 136/70; TEMP 97.9; O2SAT 95
[2023-09-28] VITALS: BP 115/61; TEMP 97.9; O2SAT 95
[2023-09-28] MEDS: ZOSYN IVPB 3.375 G in IV D5W 50ml IV SCH ×3 (00:16→11:14)
[2023-09-28 04:00] VITALS: BP 120/69; TEMP 97.7; O2SAT 95
[2023-09-28] MEDS: JEVITY 1.2 CAL 1,000 ML BOTTLE GT PRN (04:41)
[2023-09-28 06:36] LABS: BASOPHILS % (AUTO) 0.5 % (0.0-2.0); EOSINOPHILS # (AUTO) 0.6 K/uL (0.0-0.7); EOSINOPHILS % (AUTO) 6.7 % (0.0-6.0); HEMATOCRIT 29 % (39-51); HEMOGLOBIN 9.3 g/dL (13.5-17.5); LYMPHOCYTES # (AUTO) 0.9 K/uL (0.8-4.8); MEAN CORPUSCULAR HEMOGLOBIN 30 PG (26.0-33.0); MEAN CORPUSCULAR HGB CONC 32 g/dl (31.0-36.0); MEAN CORPUSCULAR VOLUME 93 fL (80-96); MONOCYTES # (AUTO) 0.3 K/uL (0.1-1.30); MONOCYTES % (AUTO) 3.9 % (2.0-12.0); NEUTROPHILS # (AUTO) 6.8 K/uL (1.8-8.9); NEUTROPHILS % (AUTO) 78.9 % (43.0-81.0); PLATELET COUNT (AUTO) 445 K/uL (150-450); RED BLOOD CELL COUNT(AUTO) 3.11 MIL/uL (4.5-6.0); RED CELL DISTRIBUTION WIDTH 14.9 % (11.5-15.0); WHITE BLOOD COUNT (AUTO) 8.7 K/uL (4.3-11.0)
[2023-09-28 06:53] LABS: MAGNESIUM 2.3 mg/dL (1.8-2.4); PHOSPHORUS 3.5 mg/dL (2.5-4.9); POTASSIUM 4.1 mmol/L (3.5-5.1)
[2023-09-28 08:00] VITALS: BP 115/72; TEMP 97.5; O2SAT 94
[2023-09-28] MEDS: SORBITOL SOLUTION 70% 30 ML SOLUTION PO SCH (09:26)
[2023-09-28] MEDS: NEOMY SULF/BACITRAC ZN/POLY 15 GM TUBE TP SCH (09:26)
[2023-09-28] MEDS: PROSOURCE / PROSTAT (PYXIS) 30 ML UDC GT SCH ×2 (09:26→12:03)
[2023-09-28] MEDS: PANTOPRAZOLE 40 MG/PACK PACK GT SCH (09:26)
== END 2023-09-28 18:39 | DRG 177 ==
LOC: ER 02:31 → ICU 11:23 → TELE 09-25 14:23
PROVIDERS: ADMIT Nurse Practitioner Acute Care
PROC: 05HB33Z Insertion of Infusion Device into Right Basilic Vein, Percutaneous Approach (ICD-10-PCS; principal; 2023-09-19)
PROC: 0D20XUZ Change Feeding Device in Upper Intestinal Tract, External Approach (ICD-10-PCS; 2023-09-21)
DX: J69.0 Pneumonitis due to inhalation of food and vomit (principal); G93.41 Metabolic encephalopathy; J96.01 Acute respiratory failure with hypoxia; N17.9 Acute kidney failure, unspecified; N39.0 Urinary tract infection, site not specified; F03.93 Unspecified dementia, unspecified severity, with mood disturbance; K56.7 Ileus, unspecified; E87.20 Acidosis, unspecified; K94.23 Gastrostomy malfunction; Z66 Do not resuscitate; Z20.822 Contact with and (suspected) exposure to COVID-19; F20.9 Schizophrenia, unspecified; I10 Essential (primary) hypertension; G40.909 Epilepsy, unspecified, not intractable, without status epilepticus; Z79.890 Hormone replacement therapy; Z79.899 Other long term (current) drug therapy; J15.9 Unspecified bacterial pneumonia; E11.649 Type 2 diabetes mellitus with hypoglycemia without coma; E03.9 Hypothyroidism, unspecified; E78.5 Hyperlipidemia, unspecified; E86.0 Dehydration; I25.10 Atherosclerotic heart disease of native coronary artery without angina pectoris; F09 Unspecified mental disorder due to known physiological condition; F31.9 Bipolar disorder, unspecified; E87.6 Hypokalemia; K56.41 Fecal impaction; E87.5 Hyperkalemia; E11.42 Type 2 diabetes mellitus with diabetic polyneuropathy; L89.619 Pressure ulcer of right heel, unspecified stage; Y83.3 Surgical operation with formation of external stoma as the cause of abnormal reaction of the patient, or of later complication, without mention of misadventure at the time of the procedure; Y92.9 Unspecified place or not applicable; R23.4 Changes in skin texture; R60.9 Edema, unspecified; R13.10 Dysphagia, unspecified; S30.0XXA Contusion of lower back and pelvis, initial encounter; E66.9 Obesity, unspecified; Z68.24 Body mass index [BMI] 24.0-24.9, adult; D63.8 Anemia in other chronic diseases classified elsewhere
CPT/HCPCS: 31720; 36410; 36415; 71045-TC; 74018; 74250-TC; 80048-TC; 80053-TC; 80061-TC; 80076-TC; 80202-TC; 81001; 82550-TC; 82607-TC; 82728-TC; 82962-TC; 83540-TC; 83605-TC; 83735-TC; 83970; 84100-TC; 84155; 84165; 84484-TC; 85025-TC; 85730-TC; 87040-TC; 87081-TC; 87086-TC; 93307-TC; 94799-TC; A4223; C9113; G0378; J1650; J1815; J2405; J2543; J3370; J3480; J3490; J7030; J7040; J7042; J7050; J7060; J7070

== ENCOUNTER 2023-11-02 20:23 | Inpatient (IN) | payer MEDICARE, OTHER ==
[~2023-11-02] VITALS: Ht 177.8 cm; Wt 72.6 kg
[~2023-11-02 20:23] MED LIST changes: -CEPH500C2 PO; -PETR113O TP; +POVI3780 TP; +TRIA15OI2 TP; -VANC1VIA4 IV; +ZINC50TA69 GT
[2023-11-02 21:51] LABS: BASOPHILS % (AUTO) 0.3 % (0.0-2.0); EOSINOPHILS # (AUTO) 0.4 K/uL (0.0-0.7); EOSINOPHILS % (AUTO) 5.8 % (0.0-6.0); HEMATOCRIT 31 % (39-51); HEMOGLOBIN 10.3 g/dL (13.5-17.5); LYMPHOCYTES # (AUTO) 0.5 K/uL (0.8-4.8); LYMPHOCYTES % (AUTO) 6.8 % (20.0-44.0); MEAN CORPUSCULAR HEMOGLOBIN 30 PG (26.0-33.0); MEAN CORPUSCULAR HGB CONC 33 g/dl (31.0-36.0); MEAN CORPUSCULAR VOLUME 91 fL (80-96); MONOCYTES # (AUTO) 0.6 K/uL (0.1-1.30); MONOCYTES % (AUTO) 7.9 % (2.0-12.0); NEUTROPHILS # (AUTO) 6.2 K/uL (1.8-8.9); NEUTROPHILS % (AUTO) 79.2 % (43.0-81.0); PLATELET COUNT (AUTO) 309 K/uL (150-450); RED BLOOD CELL COUNT(AUTO) 3.44 MIL/uL (4.5-6.0); RED CELL DISTRIBUTION WIDTH 17.3 % (11.5-15.0); WHITE BLOOD COUNT (AUTO) 7.8 K/uL (4.3-11.0)
[2023-11-02 22:15] LABS: CARBON DIOXIDE 25 mmol/L (21-32); CHLORIDE 102 mmol/L (98-107); CREATININE 0.9 mg/dL (0.6-1.3); GLUCOSE 107 mg/dL (74-106); POTASSIUM 4.7 mmol/L (3.5-5.1); SODIUM SERUM 134 mmol/L (136-145); UREA NITROGEN, BLOOD 39 mg/dL (7-18)
[2023-11-02 22:17] LABS: ALANINE AMINOTRANSFERASE 37 U/L (12-78); ALBUMIN 2.4 g/dL (3.4-5.0); ALKALINE PHOSPHATASE 109 U/L (46-116); ASPARTATE AMINOTRANSFERASE 21 U/L (15-37); BILIRUBIN,DIRECT 0.1 mg/dL (0.0-0.2); BILIRUBIN,TOTAL 0.1 mg/dL (0.2-1.0); LIPASE 13 U/L (16-77); TOTAL PROTEIN, SERUM 7.5 g/dL (6.4-8.2)
[2023-11-02] MEDS ORDERED: ONDANSETRON HCL/PF 4 MG/2 ML VIAL ONE (22:24)
[2023-11-02] MEDS ORDERED: PANTOPRAZOLE 40 MG VIAL ONE (22:24)
[2023-11-02] MEDS ORDERED: IV NS 0.9% 1,000 ML BAG IV ONE (22:30)
[2023-11-02] MEDS ORDERED: ONDANSETRON HCL/PF 4 MG/2 ML VIAL IVP ONE (22:30)
[2023-11-02] MEDS ORDERED: PANTOPRAZOLE 80 MG in IV NS 0.9% 500 ML IV ONE (22:30)
[2023-11-02] MEDS ORDERED: CEFEPIME 1 GM in IV D5W 50 ML IV ONE (22:30)
[2023-11-02] MEDS ORDERED: CEFEPIME 1 GM VIAL ONE (22:49)
[2023-11-02 23:01] LABS: APPEARANCE,URINE SLIGHTLY CLOUDY (CLEAR); BILIRUBIN,URINE NEGATIVE (NEGATIVE); BLOOD, URINE NEGATIVE Ery/uL (NEGATIVE); COLOR,URINE YELLOW (YELLOW); KETONES,URINE NEGATIVE (NEGATIVE); LEUKOCYTE ESTERASE ,URINE 3+ (NEGATIVE); NITRITE, URINE NEGATIVE (NEGATIVE); PH,URINE 7.5 (5.0-8.0); PROTEIN,URINE NEGATIVE (NEGATIVE); UGLUCOSE NEGATIVE (NEGATIVE)
[2023-11-02 23:09] LABS: ABG BASE EXCESS -2.7 mmol/L; ABG PCO2 37.2 mmHg (35.0-45.0); ABG PH 7.388 (7.350-7.450); ABG PO2 120.3 mmHg (75.0-100.0); ABG TOTAL HEMOGLOBIN 10.5 G/dL (13.5-18.0); COHb 0.3 % (0.5-1.5); MetHb 0.1 % (0.0-1.5); O2Hb 97.6 % (94.0-97.0); SITE, ABG Right Brachial
[2023-11-02 23:23] LABS: ADD URINE CULTURE YES; BACTERIA,URINE 4+ /HPF (None Seen); RBC,URINE NONE SEEN /HPF (0-2); SQUAMOUS EPITHELIAL CELL,UR None Seen /HPF (None Seen)
[2023-11-02] MEDS ORDERED: MAGNESIUM HYDROXIDE 30 ML UDC PO PRN (23:30)
[2023-11-02] MEDS ORDERED: Z GUARD REMEDY 4 OZ OINT TP PRN (23:30)
[2023-11-02] MEDS ORDERED: ONDANSETRON HCL/PF 4 MG/2 ML VIAL IVP PRN (23:30)
[2023-11-02] MEDS ORDERED: MAG HYDROX/AL HYDROX/SIMETH 30 ML UDC PO PRN (23:30)
[2023-11-02] MEDS ORDERED: ACETAMINOPHEN 325 MG TABLET PO PRN (23:30)
[2023-11-02] MEDS ORDERED: ZOLPIDEM TARTRATE 5 MG TABLET PO PRN (23:30)
[2023-11-03 00:41] LABS: INR 1.1 (0.91-1.10); PARTIAL THROMBOPLASTIN TIME 36.8 SEC (24.3-34.3); PROTHROMBIN TIME 11.6 SECS (9.2-11.1)
[2023-11-03 01:31] LABS: HEMOGLOBIN 9.6 g/dL (13.5-17.5)
[2023-11-03] MEDS: IV NS 0.9% 1,000 ML IV PRN (03:33)
[2023-11-03] MEDS ORDERED: MAGNESIUM HYDROXIDE 30 ML UDC GT PRN (08:28)
[2023-11-03] MEDS ORDERED: ZOLPIDEM TARTRATE 5 MG TABLET GT PRN (08:29)
[2023-11-03] MEDS ORDERED: MAG HYDROX/AL HYDROX/SIMETH 30 ML UDC GT PRN (08:29)
[2023-11-03] MEDS: DIVALPROEX SODIUM 125 MG CAP.SPRINK GT SCH ×3 (08:32→17:49)
[2023-11-03] MEDS: PANTOPRAZOLE 40 MG VIAL IV SCH ×2 (08:33→21:52)
[2023-11-03] MEDS: BENZTROPINE MESYLATE (1 MG) 1 MG TABLET GT SCH ×2 (08:33→17:50)
[2023-11-03] MEDS: LEVOTHYROXINE SODIUM 100 MCG TABLET GT SCH (08:33)
[2023-11-03] MEDS: AMLODIPINE BESYLATE 10 MG TABLET GT SCH (08:40)
[2023-11-03] MEDS: DOCUSATE SODIUM LIQ 100 MG/10 ML UDC GT SCH (08:40)
[2023-11-03] MEDS ORDERED: ACETAMINOPHEN 650 MG/20.3 ML UDC GT PRN (09:00)
[2023-11-03 09:20] LABS: BASOPHILS % (AUTO) 0.2 % (0.0-2.0); EOSINOPHILS # (AUTO) 0.3 K/uL (0.0-0.7); EOSINOPHILS % (AUTO) 5.9 % (0.0-6.0); HEMATOCRIT 33 % (39-51); HEMOGLOBIN 10.6 g/dL (13.5-17.5); LYMPHOCYTES # (AUTO) 0.4 K/uL (0.8-4.8); LYMPHOCYTES % (AUTO) 8.8 % (20.0-44.0); MEAN CORPUSCULAR HEMOGLOBIN 30 PG (26.0-33.0); MEAN CORPUSCULAR HGB CONC 33 g/dl (31.0-36.0); MEAN CORPUSCULAR VOLUME 93 fL (80-96); MONOCYTES # (AUTO) 0.3 K/uL (0.1-1.30); MONOCYTES % (AUTO) 5.9 % (2.0-12.0); NEUTROPHILS # (AUTO) 3.6 K/uL (1.8-8.9); NEUTROPHILS % (AUTO) 79.2 % (43.0-81.0); PLATELET COUNT (AUTO) 252 K/uL (150-450); RED BLOOD CELL COUNT(AUTO) 3.49 MIL/uL (4.5-6.0); RED CELL DISTRIBUTION WIDTH 17.9 % (11.5-15.0); WHITE BLOOD COUNT (AUTO) 4.5 K/uL (4.3-11.0)
[2023-11-03 09:37] LABS: ALANINE AMINOTRANSFERASE 28 U/L (12-78); ALBUMIN 2.1 g/dL (3.4-5.0); ALKALINE PHOSPHATASE 105 U/L (46-116); ASPARTATE AMINOTRANSFERASE 17 U/L (15-37); BILIRUBIN,TOTAL 0.2 mg/dL (0.2-1.0); CALCIUM, SERUM 9.1 mg/dL (8.5-10.1); CARBON DIOXIDE 20 mmol/L (21-32); CHLORIDE 107 mmol/L (98-107); CREATININE 0.8 mg/dL (0.6-1.3); GLUCOSE 96 mg/dL (74-106); MAGNESIUM 2.1 mg/dL (1.8-2.4); PHOSPHORUS 2.9 mg/dL (2.5-4.9); POTASSIUM 5.1 mmol/L (3.5-5.1); SODIUM SERUM 135 mmol/L (136-145); TOTAL PROTEIN, SERUM 6.9 g/dL (6.4-8.2); UREA NITROGEN, BLOOD 29 mg/dL (7-18)
[2023-11-03] MEDS ORDERED: METOCLOPRAMIDE HCL 10 MG/2 ML VIAL IV SCH (10:30)
[2023-11-03] MEDS: CEFEPIME 1 GM in IV D5W 50 ML IV SCH (11:25)
[2023-11-03] MEDS: MULTIVITAMINS,THERAGRAN 1 UDTAB TABLET GT SCH (17:50)
[2023-11-03] MEDS: PROSOURCE / PROSTAT (PYXIS) 30 ML UDC GT SCH (17:50)
[2023-11-03] MEDS: ZINC SULFATE 220 MG CAPSULE GT SCH (17:50)
[2023-11-03] MEDS: CHOLECALCIFEROL 1,000 UNIT TABLET (VIT D3) GT SCH (17:50)
[2023-11-03] MEDS: ASCORBIC ACID 500 MG TABLET GT SCH (17:50)
[2023-11-03 20:00] VITALS: BP 94/57; TEMP 96.2; O2SAT 98
[2023-11-03] MEDS: ATORVASTATIN 10 MG TABLET GT SCH (21:52)
[2023-11-04] VITALS: BP 98/59; TEMP 97; O2SAT 98
[2023-11-04 04:00] VITALS: BP 95/58; TEMP 97.4; O2SAT 99
[2023-11-04 06:59] LABS: BASOPHILS % (AUTO) 0.2 % (0.0-2.0); EOSINOPHILS # (AUTO) 0.7 K/uL (0.0-0.7); EOSINOPHILS % (AUTO) 11.6 % (0.0-6.0); HEMATOCRIT 34 % (39-51); HEMOGLOBIN 10.8 g/dL (13.5-17.5); LYMPHOCYTES # (AUTO) 0.6 K/uL (0.8-4.8); LYMPHOCYTES % (AUTO) 9.3 % (20.0-44.0); MEAN CORPUSCULAR HEMOGLOBIN 30 PG (26.0-33.0); MEAN CORPUSCULAR HGB CONC 32 g/dl (31.0-36.0); MEAN CORPUSCULAR VOLUME 94 fL (80-96); MONOCYTES # (AUTO) 0.4 K/uL (0.1-1.30); MONOCYTES % (AUTO) 5.8 % (2.0-12.0); NEUTROPHILS # (AUTO) 4.5 K/uL (1.8-8.9); NEUTROPHILS % (AUTO) 73.1 % (43.0-81.0); PLATELET COUNT (AUTO) 224 K/uL (150-450); RED BLOOD CELL COUNT(AUTO) 3.62 MIL/uL (4.5-6.0); RED CELL DISTRIBUTION WIDTH 18.2 % (11.5-15.0); WHITE BLOOD COUNT (AUTO) 6.1 K/uL (4.3-11.0)
[2023-11-04] MEDS: LEVOTHYROXINE SODIUM 100 MCG TABLET GT SCH (07:07)
[2023-11-04 07:11] LABS: CALCIUM, SERUM 9.6 mg/dL (8.5-10.1); CHLORIDE 106 mmol/L (98-107); CREATININE 0.7 mg/dL (0.6-1.3); GLUCOSE 93 mg/dL (74-106); PHOSPHORUS 3.2 mg/dL (2.5-4.9); POTASSIUM 4.5 mmol/L (3.5-5.1); SODIUM SERUM 136 mmol/L (136-145)
[2023-11-04 07:18] LABS: THYROID STIMULATING HORMONE 4.489 uIU/mL (0.358-3.74); URIC ACID 3.7 mg/dL (2.6-7.2)
[2023-11-04 07:47] LABS: CARBON DIOXIDE 18 mmol/L (21-32); UREA NITROGEN, BLOOD 23 mg/dL (7-18)
[2023-11-04 08:00] VITALS: BP 102/57; TEMP 98.2; O2SAT 98
[2023-11-04] MEDS: DIVALPROEX SODIUM 125 MG CAP.SPRINK GT SCH ×3 (08:29→17:46)
[2023-11-04] MEDS: PANTOPRAZOLE 40 MG VIAL IV SCH ×2 (08:32→21:00)
[2023-11-04] MEDS: DOCUSATE SODIUM LIQ 100 MG/10 ML UDC GT SCH (08:32)
[2023-11-04] MEDS: AMLODIPINE BESYLATE 10 MG TABLET GT SCH (08:33)
[2023-11-04] MEDS: BENZTROPINE MESYLATE (1 MG) 1 MG TABLET GT SCH ×2 (08:33→17:47)
[2023-11-04] MEDS ORDERED: [UNRECOGNIZED DRUG - OTHER] GT SCH (10:00)
[2023-11-04] MEDS ORDERED: FIBER GT SCH (10:00)
[2023-11-04] MEDS ORDERED: LACTOSE FREE FOOD GT SCH (10:00)
[2023-11-04] MEDS: CEFEPIME 1 GM in IV D5W 50 ML IV SCH (10:28)
[2023-11-04] MEDS ORDERED: PERMETHRIN 5% CRM 60 GM TUBE TP ONE (11:30)
[2023-11-04 12:00] VITALS: BP 99/66; TEMP 98.5; O2SAT 98
[2023-11-04] MEDS: ENOXAPARIN SODIUM 80 MG/0.8 ML DISP.SYRIN SQ SCH (13:58)
[2023-11-04] MEDS: JEVITY 1.2 CAL 1,000 ML BOTTLE GT SCH (15:35)
[2023-11-04] MEDS: IV NS 0.9% 1,000 ML IV PRN (15:42)
[2023-11-04 16:00] VITALS: BP 102/57; TEMP 98.5; O2SAT 98
[2023-11-04] MEDS: PROSOURCE / PROSTAT (PYXIS) 30 ML UDC GT SCH (17:19)
[2023-11-04] MEDS: ASCORBIC ACID 500 MG TABLET GT SCH (17:46)
[2023-11-04] MEDS: MULTIVITAMINS,THERAGRAN 1 UDTAB TABLET GT SCH (17:46)
[2023-11-04] MEDS: CHOLECALCIFEROL 1,000 UNIT TABLET (VIT D3) GT SCH (17:46)
[2023-11-04] MEDS: ZINC SULFATE 220 MG CAPSULE GT SCH (17:47)
[2023-11-04 20:00] VITALS: BP 106/64; TEMP 98.2; O2SAT 98
[2023-11-04] MEDS: ATORVASTATIN 10 MG TABLET GT SCH (21:00)
[2023-11-05] VITALS: BP 122/66; TEMP 98.2; O2SAT 97
[2023-11-05] MEDS: ENOXAPARIN SODIUM 80 MG/0.8 ML DISP.SYRIN SQ SCH ×2 (01:56→12:55)
[2023-11-05 02:38] LABS: BASOPHILS % (AUTO) 0.3 % (0.0-2.0); EOSINOPHILS # (AUTO) 0.2 K/uL (0.0-0.7); EOSINOPHILS % (AUTO) 3.6 % (0.0-6.0); HEMATOCRIT 32 % (39-51); HEMOGLOBIN 10.2 g/dL (13.5-17.5); LYMPHOCYTES # (AUTO) 0.4 K/uL (0.8-4.8); LYMPHOCYTES % (AUTO) 8.9 % (20.0-44.0); MEAN CORPUSCULAR HEMOGLOBIN 30 PG (26.0-33.0); MEAN CORPUSCULAR HGB CONC 32 g/dl (31.0-36.0); MEAN CORPUSCULAR VOLUME 94 fL (80-96); MONOCYTES # (AUTO) 0.2 K/uL (0.1-1.30); MONOCYTES % (AUTO) 4.9 % (2.0-12.0); NEUTROPHILS % (AUTO) 82.3 % (43.0-81.0); PLATELET COUNT (AUTO) 201 K/uL (150-450); RED BLOOD CELL COUNT(AUTO) 3.46 MIL/uL (4.5-6.0); RED CELL DISTRIBUTION WIDTH 18.5 % (11.5-15.0); WHITE BLOOD COUNT (AUTO) 4.8 K/uL (4.3-11.0)
[2023-11-05 03:17] LABS: CALCIUM, SERUM 9.4 mg/dL (8.5-10.1); CARBON DIOXIDE 17 mmol/L (21-32); CHLORIDE 108 mmol/L (98-107); CREATININE 0.7 mg/dL (0.6-1.3); GLUCOSE 89 mg/dL (74-106); MAGNESIUM 1.7 mg/dL (1.8-2.4); PHOSPHORUS 3.1 mg/dL (2.5-4.9); POTASSIUM 4.5 mmol/L (3.5-5.1); SODIUM SERUM 136 mmol/L (136-145); UREA NITROGEN, BLOOD 20 mg/dL (7-18)
[2023-11-05 04:00] VITALS: BP 120/65; TEMP 98; O2SAT 97
[2023-11-05] MEDS: IV NS 0.9% 1,000 ML IV PRN (05:27)
[2023-11-05 08:00] VITALS: BP 142/70; TEMP 98.7; O2SAT 99
[2023-11-05] MEDS: AMLODIPINE BESYLATE 10 MG TABLET GT SCH (08:17)
[2023-11-05] MEDS: PANTOPRAZOLE 40 MG VIAL IV SCH ×2 (08:17→21:19)
[2023-11-05] MEDS: LEVOTHYROXINE SODIUM 100 MCG TABLET GT SCH (08:17)
[2023-11-05] MEDS: BENZTROPINE MESYLATE (1 MG) 1 MG TABLET GT SCH ×2 (08:18→17:27)
[2023-11-05] MEDS: DOCUSATE SODIUM LIQ 100 MG/10 ML UDC GT SCH (08:18)
[2023-11-05] MEDS: DIVALPROEX SODIUM 125 MG CAP.SPRINK GT SCH ×3 (08:18→17:27)
[2023-11-05] MEDS: CEFEPIME 1 GM in IV D5W 50 ML IV SCH (08:19)
[2023-11-05] MEDS ORDERED: MAGNESIUM OXIDE 400 MG TABLET GT ONE (09:00)
[2023-11-05] MEDS ORDERED: MAGNESIUM OXIDE 400 MG TABLET PO ONE (09:00)
[2023-11-05] MEDS: MUPIROCIN OINT 2% 22 GM TUBE TP SCH ×2 (11:22→21:19)
[2023-11-05 12:00] VITALS: BP 142/70; TEMP 98.3; O2SAT 99
[2023-11-05 16:00] VITALS: BP 127/78; TEMP 98.3; O2SAT 99
[2023-11-05] MEDS: CHOLECALCIFEROL 1,000 UNIT TABLET (VIT D3) GT SCH (17:27)
[2023-11-05] MEDS: MULTIVITAMINS,THERAGRAN 1 UDTAB TABLET GT SCH (17:27)
[2023-11-05] MEDS: ASCORBIC ACID 500 MG TABLET GT SCH (17:27)
[2023-11-05] MEDS: ZINC SULFATE 220 MG CAPSULE GT SCH (17:27)
[2023-11-05] MEDS: PROSOURCE / PROSTAT (PYXIS) 30 ML UDC GT SCH (17:28)
[2023-11-05] MEDS: JEVITY 1.2 CAL 1,000 ML BOTTLE GT SCH (19:47)
[2023-11-05 20:00] VITALS: BP 139/79; TEMP 96.8; O2SAT 97
[2023-11-05] MEDS: ATORVASTATIN 10 MG TABLET GT SCH (21:21)
[2023-11-06] VITALS: BP 132/90; TEMP 97.5; O2SAT 98
[2023-11-06] MEDS: ENOXAPARIN SODIUM 80 MG/0.8 ML DISP.SYRIN SQ SCH ×2 (00:43→12:33)
[2023-11-06 04:00] VITALS: BP 143/74; TEMP 97.9; O2SAT 95
[2023-11-06 07:23] LABS: BASOPHILS % (AUTO) 0.2 % (0.0-2.0); EOSINOPHILS # (AUTO) 0.1 K/uL (0.0-0.7); EOSINOPHILS % (AUTO) 1.5 % (0.0-6.0); HEMATOCRIT 32 % (39-51); HEMOGLOBIN 10.5 g/dL (13.5-17.5); LYMPHOCYTES # (AUTO) 0.6 K/uL (0.8-4.8); LYMPHOCYTES % (AUTO) 6.7 % (20.0-44.0); MEAN CORPUSCULAR HEMOGLOBIN 30 PG (26.0-33.0); MEAN CORPUSCULAR HGB CONC 33 g/dl (31.0-36.0); MEAN CORPUSCULAR VOLUME 91 fL (80-96); MONOCYTES # (AUTO) 0.6 K/uL (0.1-1.30); MONOCYTES % (AUTO) 7.5 % (2.0-12.0); NEUTROPHILS # (AUTO) 7.1 K/uL (1.8-8.9); NEUTROPHILS % (AUTO) 84.1 % (43.0-81.0); PLATELET COUNT (AUTO) 286 K/uL (150-450); RED BLOOD CELL COUNT(AUTO) 3.53 MIL/uL (4.5-6.0); RED CELL DISTRIBUTION WIDTH 17.9 % (11.5-15.0); WHITE BLOOD COUNT (AUTO) 8.4 K/uL (4.3-11.0)
[2023-11-06 08:00] VITALS: BP 138/89; TEMP 97.8; O2SAT 97
[2023-11-06] MEDS: PANTOPRAZOLE 40 MG VIAL IV SCH ×2 (08:14→21:54)
[2023-11-06] MEDS: DOCUSATE SODIUM LIQ 100 MG/10 ML UDC GT SCH (08:14)
[2023-11-06] MEDS: LEVOTHYROXINE SODIUM 100 MCG TABLET GT SCH (08:15)
[2023-11-06] MEDS: BENZTROPINE MESYLATE (1 MG) 1 MG TABLET GT SCH ×2 (08:15→17:18)
[2023-11-06] MEDS: DIVALPROEX SODIUM 125 MG CAP.SPRINK GT SCH ×3 (08:15→17:18)
[2023-11-06] MEDS: CEFEPIME 1 GM in IV D5W 50 ML IV SCH (08:15)
[2023-11-06] MEDS: AMLODIPINE BESYLATE 10 MG TABLET GT SCH (08:18)
[2023-11-06 08:32] LABS: CALCIUM, SERUM 9.5 mg/dL (8.5-10.1); CREATININE 0.8 mg/dL (0.6-1.3); MAGNESIUM 1.8 mg/dL (1.8-2.4); POTASSIUM 3.7 mmol/L (3.5-5.1)
[2023-11-06] MEDS: MUPIROCIN OINT 2% 22 GM TUBE TP SCH ×2 (08:46→22:40)
[2023-11-06] MEDS ORDERED: SORBITOL SOLUTION 70% 30 ML SOLUTION PO SCH (11:00)
[2023-11-06] MEDS ORDERED: LACTULOSE 10 G/15 ML UDC (PYXIS) PO PRN (11:00)
[2023-11-06 12:00] VITALS: BP 148/73; TEMP 97.5; O2SAT 98
[2023-11-06] MEDS: JEVITY 1.2 CAL 1,000 ML BOTTLE GT SCH (12:39)
[2023-11-06 16:00] VITALS: BP 135/88; TEMP 98; O2SAT 98
[2023-11-06] MEDS: MULTIVITAMINS,THERAGRAN 1 UDTAB TABLET GT SCH (17:18)
[2023-11-06] MEDS: ZINC SULFATE 220 MG CAPSULE GT SCH (17:18)
[2023-11-06] MEDS: ASCORBIC ACID 500 MG TABLET GT SCH (17:18)
[2023-11-06] MEDS: CHOLECALCIFEROL 1,000 UNIT TABLET (VIT D3) GT SCH (17:18)
[2023-11-06] MEDS: PROSOURCE / PROSTAT (PYXIS) 30 ML UDC GT SCH (17:18)
[2023-11-06 20:00] VITALS: BP 139/87; TEMP 97.5; O2SAT 96
[2023-11-06] MEDS: CEFEPIME 2 GM in IV D5W 100 ML IV SCH (21:55)
[2023-11-06] MEDS: ATORVASTATIN 10 MG TABLET GT SCH (21:59)
[2023-11-07] VITALS: BP 145/75; TEMP 98.4; O2SAT 96
[2023-11-07] MEDS: ENOXAPARIN SODIUM 80 MG/0.8 ML DISP.SYRIN SQ SCH (01:42)
[2023-11-07 04:00] VITALS: BP 142/83; TEMP 98.7; O2SAT 98
[2023-11-07] MEDS: JEVITY 1.2 CAL 1,000 ML BOTTLE GT SCH (05:04)
[2023-11-07 08:00] VITALS: BP 150/89; TEMP 98.1; O2SAT 95
[2023-11-07] MEDS: PANTOPRAZOLE 40 MG VIAL IV SCH ×2 (08:18→21:34)
[2023-11-07] MEDS: DOCUSATE SODIUM LIQ 100 MG/10 ML UDC GT SCH (08:18)
[2023-11-07] MEDS: CEFEPIME 2 GM in IV D5W 100 ML IV SCH (08:18)
[2023-11-07] MEDS: DIVALPROEX SODIUM 125 MG CAP.SPRINK GT SCH ×3 (08:18→17:12)
[2023-11-07] MEDS: LEVOTHYROXINE SODIUM 100 MCG TABLET GT SCH (08:19)
[2023-11-07] MEDS: BENZTROPINE MESYLATE (1 MG) 1 MG TABLET GT SCH ×2 (08:23→17:11)
[2023-11-07] MEDS: AMLODIPINE BESYLATE 10 MG TABLET GT SCH (08:24)
[2023-11-07] MEDS: HYDROCORTISONE 1% CREAM 28.35 GM TUBE TP SCH ×2 (11:02→17:13)
[2023-11-07] MEDS: MUPIROCIN OINT 2% 22 GM TUBE TP SCH ×2 (11:02→21:34)
[2023-11-07] MEDS: QUETIAPINE FUMARATE 25 MG TABLET PO PRN ×2 (12:42→21:34)
[2023-11-07 16:00] VITALS: BP 120/70; TEMP 97.9; O2SAT 93
[2023-11-07] MEDS: CHOLECALCIFEROL 1,000 UNIT TABLET (VIT D3) GT SCH (17:12)
[2023-11-07] MEDS: APIXABAN 5 MG TABLET GT SCH (17:12)
[2023-11-07] MEDS: ASCORBIC ACID 500 MG TABLET GT SCH (17:12)
[2023-11-07] MEDS: ZINC SULFATE 220 MG CAPSULE GT SCH (17:12)
[2023-11-07] MEDS: MULTIVITAMINS,THERAGRAN 1 UDTAB TABLET GT SCH (17:12)
[2023-11-07] MEDS: PROSOURCE / PROSTAT (PYXIS) 30 ML UDC GT SCH (17:13)
[2023-11-07] MEDS: NITROFURANTOIN/MONOHYDRATE MACROCRYSTALS 100 MG CAPSULE PO SCH (21:34)
[2023-11-07] MEDS: ATORVASTATIN 10 MG TABLET GT SCH (21:34)
[2023-11-08] VITALS: BP 120/70; TEMP 97.9; O2SAT 93
[2023-11-08 06:53] LABS: BASOPHILS % (AUTO) 0.3 % (0.0-2.0); EOSINOPHILS # (AUTO) 0.9 K/uL (0.0-0.7); EOSINOPHILS % (AUTO) 11.4 % (0.0-6.0); HEMATOCRIT 27 % (39-51); HEMOGLOBIN 9.1 g/dL (13.5-17.5); LYMPHOCYTES # (AUTO) 0.9 K/uL (0.8-4.8); LYMPHOCYTES % (AUTO) 10.6 % (20.0-44.0); MEAN CORPUSCULAR HEMOGLOBIN 30 PG (26.0-33.0); MEAN CORPUSCULAR HGB CONC 33 g/dl (31.0-36.0); MEAN CORPUSCULAR VOLUME 90 fL (80-96); MONOCYTES # (AUTO) 0.5 K/uL (0.1-1.30); MONOCYTES % (AUTO) 6.2 % (2.0-12.0); NEUTROPHILS # (AUTO) 5.9 K/uL (1.8-8.9); NEUTROPHILS % (AUTO) 71.5 % (43.0-81.0); PLATELET COUNT (AUTO) 203 K/uL (150-450); RED BLOOD CELL COUNT(AUTO) 3.02 MIL/uL (4.5-6.0); RED CELL DISTRIBUTION WIDTH 18.4 % (11.5-15.0); WHITE BLOOD COUNT (AUTO) 8.2 K/uL (4.3-11.0)
[2023-11-08 07:05] LABS: CALCIUM, SERUM 9.6 mg/dL (8.5-10.1); CREATININE 0.7 mg/dL (0.6-1.3); MAGNESIUM 2.2 mg/dL (1.8-2.4); POTASSIUM 3.7 mmol/L (3.5-5.1)
[2023-11-08 08:00] VITALS: BP 115/77; TEMP 96.1; O2SAT 100
[2023-11-08] MEDS: PANTOPRAZOLE 40 MG VIAL IV SCH ×2 (09:18→20:53)
[2023-11-08] MEDS: DIVALPROEX SODIUM 125 MG CAP.SPRINK GT SCH ×3 (09:18→16:48)
[2023-11-08] MEDS: NITROFURANTOIN/MONOHYDRATE MACROCRYSTALS 100 MG CAPSULE PO SCH ×2 (09:19→20:54)
[2023-11-08] MEDS: BENZTROPINE MESYLATE (1 MG) 1 MG TABLET GT SCH ×2 (09:19→16:48)
[2023-11-08] MEDS: DOCUSATE SODIUM LIQ 100 MG/10 ML UDC GT SCH (09:19)
[2023-11-08] MEDS: LEVOTHYROXINE SODIUM 100 MCG TABLET GT SCH (09:19)
[2023-11-08] MEDS: APIXABAN 5 MG TABLET GT SCH ×2 (09:20→16:49)
[2023-11-08] MEDS: HYDROCORTISONE 1% CREAM 28.35 GM TUBE TP SCH ×2 (09:21→17:29)
[2023-11-08] MEDS: AMLODIPINE BESYLATE 10 MG TABLET GT SCH (09:21)
[2023-11-08] MEDS: MUPIROCIN OINT 2% 22 GM TUBE TP SCH ×2 (09:22→21:04)
[2023-11-08] MEDS: QUETIAPINE FUMARATE 25 MG TABLET PO PRN ×2 (09:28→16:48)
[2023-11-08] MEDS: JEVITY 1.2 CAL 1,000 ML BOTTLE GT SCH (10:28)
[2023-11-08] MEDS ORDERED: FUROSEMIDE 20 MG/2 ML VIAL IV ONE (10:30)
[2023-11-08 16:00] VITALS: BP 97/63; TEMP 96.5; O2SAT 99
[2023-11-08] MEDS: MULTIVITAMINS,THERAGRAN 1 UDTAB TABLET GT SCH (18:12)
[2023-11-08] MEDS: ZINC SULFATE 220 MG CAPSULE GT SCH (18:12)
[2023-11-08] MEDS: CHOLECALCIFEROL 1,000 UNIT TABLET (VIT D3) GT SCH (18:13)
[2023-11-08] MEDS: PROSOURCE / PROSTAT (PYXIS) 30 ML UDC GT SCH (18:13)
[2023-11-08] MEDS: ASCORBIC ACID 500 MG TABLET GT SCH (18:13)
[2023-11-08] MEDS: ATORVASTATIN 10 MG TABLET GT SCH (21:03)
[2023-11-09] VITALS: BP 115/62; TEMP 97; O2SAT 96
[2023-11-09] MEDS: JEVITY 1.2 CAL 1,000 ML BOTTLE GT SCH (04:42)
[2023-11-09 06:49] LABS: BASOPHILS % (AUTO) 0.2 % (0.0-2.0); EOSINOPHILS # (AUTO) 0.9 K/uL (0.0-0.7); EOSINOPHILS % (AUTO) 8.7 % (0.0-6.0); HEMATOCRIT 31 % (39-51); HEMOGLOBIN 10.2 g/dL (13.5-17.5); LYMPHOCYTES % (AUTO) 9.8 % (20.0-44.0); MEAN CORPUSCULAR HEMOGLOBIN 29 PG (26.0-33.0); MEAN CORPUSCULAR HGB CONC 33 g/dl (31.0-36.0); MEAN CORPUSCULAR VOLUME 90 fL (80-96); MONOCYTES # (AUTO) 0.6 K/uL (0.1-1.30); MONOCYTES % (AUTO) 6.2 % (2.0-12.0); NEUTROPHILS # (AUTO) 7.3 K/uL (1.8-8.9); NEUTROPHILS % (AUTO) 75.1 % (43.0-81.0); PLATELET COUNT (AUTO) 230 K/uL (150-450); RED BLOOD CELL COUNT(AUTO) 3.48 MIL/uL (4.5-6.0); RED CELL DISTRIBUTION WIDTH 18.1 % (11.5-15.0); WHITE BLOOD COUNT (AUTO) 9.8 K/uL (4.3-11.0)
[2023-11-09 07:15] LABS: CALCIUM, SERUM 9.5 mg/dL (8.5-10.1); CARBON DIOXIDE 28 mmol/L (21-32); CHLORIDE 114 mmol/L (98-107); CREATININE 0.7 mg/dL (0.6-1.3); GLUCOSE 113 mg/dL (74-106); MAGNESIUM 2.2 mg/dL (1.8-2.4); PHOSPHORUS 4.3 mg/dL (2.5-4.9); POTASSIUM 3.9 mmol/L (3.5-5.1); SODIUM SERUM 151 mmol/L (136-145); UREA NITROGEN, BLOOD 33 mg/dL (7-18)
[2023-11-09] MEDS: PANTOPRAZOLE 40 MG VIAL IV SCH (08:05)
[2023-11-09] MEDS: DOCUSATE SODIUM LIQ 100 MG/10 ML UDC GT SCH (08:05)
[2023-11-09] MEDS: NITROFURANTOIN/MONOHYDRATE MACROCRYSTALS 100 MG CAPSULE PO SCH (08:06)
[2023-11-09] MEDS: APIXABAN 5 MG TABLET GT SCH (08:06)
[2023-11-09] MEDS: AMLODIPINE BESYLATE 10 MG TABLET GT SCH (08:07)
[2023-11-09] MEDS: LEVOTHYROXINE SODIUM 100 MCG TABLET GT SCH (08:07)
[2023-11-09] MEDS: DIVALPROEX SODIUM 125 MG CAP.SPRINK GT SCH ×2 (08:07→12:38)
[2023-11-09] MEDS: HYDROCORTISONE 1% CREAM 28.35 GM TUBE TP SCH (08:08)
[2023-11-09] MEDS: BENZTROPINE MESYLATE (1 MG) 1 MG TABLET GT SCH (08:08)
[2023-11-09] MEDS: MUPIROCIN OINT 2% 22 GM TUBE TP SCH (10:02)
[2023-11-09 11:41] VITALS: BP 119/69; TEMP 97.7; O2SAT 96
[2023-11-10] MEDS ORDERED: APIX5TAB GT (11:15)
[2023-11-10] MEDS ORDERED: AMIN30LI66 GT (11:15)
[2023-11-10] MEDS ORDERED: LACT-96 GT (11:15)
[2023-11-10] MEDS ORDERED: ZOLP5TAB2 GT (11:15)
[2023-11-10] MEDS ORDERED: LACT10SO58 GT (11:15)
[2023-11-10] MEDS ORDERED: NITR50CA4 PO (11:15)
== END 2023-11-09 15:40 | DRG 871 ==
LOC: ER 20:42 → TELE1 11-03 02:09 → MEDSG1 11-07 11:52
PROVIDERS: ADMIT Nurse Practitioner Acute Care; ATTEND Nurse Practitioner Family
DX: A41.9 Sepsis, unspecified organism (principal); G92.8 Other toxic encephalopathy; J15.69 Pneumonia due to other Gram-negative bacteria; J69.0 Pneumonitis due to inhalation of food and vomit; J96.21 Acute and chronic respiratory failure with hypoxia; K92.2 Gastrointestinal hemorrhage, unspecified; E44.0 Moderate protein-calorie malnutrition; D68.59 Other primary thrombophilia; N39.0 Urinary tract infection, site not specified; I82.412 Acute embolism and thrombosis of left femoral vein; E87.1 Hypo-osmolality and hyponatremia; E87.0 Hyperosmolality and hypernatremia; Z87.19 Personal history of other diseases of the digestive system; L89.96 Pressure-induced deep tissue damage of unspecified site; F03.90 Unspecified dementia, unspecified severity, without behavioral disturbance, psychotic disturbance, mood disturbance, and anxiety; E03.9 Hypothyroidism, unspecified; D64.9 Anemia, unspecified; Z79.890 Hormone replacement therapy; Z79.899 Other long term (current) drug therapy; B96.89 Other specified bacterial agents as the cause of diseases classified elsewhere; R79.89 Other specified abnormal findings of blood chemistry; R13.10 Dysphagia, unspecified; E78.5 Hyperlipidemia, unspecified; Z74.01 Bed confinement status; E88.09 Other disorders of plasma-protein metabolism, not elsewhere classified; L89.619 Pressure ulcer of right heel, unspecified stage; L89.156 Pressure-induced deep tissue damage of sacral region; I10 Essential (primary) hypertension; I25.10 Atherosclerotic heart disease of native coronary artery without angina pectoris; F09 Unspecified mental disorder due to known physiological condition; F20.9 Schizophrenia, unspecified; G40.909 Epilepsy, unspecified, not intractable, without status epilepticus; Z66 Do not resuscitate; Z78.1 Physical restraint status; Z87.01 Personal history of pneumonia (recurrent); Z93.1 Gastrostomy status; E86.0 Dehydration; Z74.09 Other reduced mobility; E86.9 Volume depletion, unspecified; F41.9 Anxiety disorder, unspecified
CPT/HCPCS: 36415; 36600; 71045-TC; 80048-TC; 80053-TC; 80076-TC; 81001; 83605-TC; 83690-TC; 83735-TC; 84100-TC; 84443-TC; 84484-TC; 84550-TC; 85025-TC; 85027-TC; 85730-TC; 86850-TC; 87040-TC; 87081-TC; 87086-TC; 92526; 92611-TC; 93970-TC; 97110-TC; 97112-TC; 97530-TC; A4223; C9113; G0378; J0692; J1650; J1940; J2405; J7030; J7040; J7050; J7060

== ENCOUNTER 2023-11-10 10:18 | Inpatient (IN) | payer MEDICARE, OTHER ==
[~2023-11-10] VITALS: Ht 177.8 cm; Wt 73.9 kg
[2023-11-10] MEDS: IV NS 0.9% 1,000 ML BAG IV ONE ×2 (10:43→11:35)
[2023-11-10] MEDS ORDERED: LACT10SO58 GT (11:15)
[2023-11-10] MEDS ORDERED: AMIN30LI66 GT (11:15)
[2023-11-10] MEDS ORDERED: APIX5TAB GT (11:15)
[2023-11-10] MEDS ORDERED: LACT-96 GT (11:15)
[2023-11-10] MEDS ORDERED: NITR50CA4 PO (11:15)
[2023-11-10] MEDS ORDERED: ZOLP5TAB2 GT (11:15)
[2023-11-10 11:19] LABS: CALCIUM, SERUM 9.1 mg/dL (8.5-10.1); CARBON DIOXIDE 23 mmol/L (21-32); CHLORIDE 115 mmol/L (98-107); CREATININE 2.2 mg/dL (0.6-1.3); GLUCOSE 124 mg/dL (74-106); SODIUM SERUM 151 mmol/L (136-145); UREA NITROGEN, BLOOD 68 mg/dL (7-18)
[2023-11-10 11:24] LABS: ALANINE AMINOTRANSFERASE 98 U/L (12-78); ALBUMIN 1.9 g/dL (3.4-5.0); ALKALINE PHOSPHATASE 105 U/L (46-116); ASPARTATE AMINOTRANSFERASE 40 U/L (15-37); BILIRUBIN,DIRECT 0.1 mg/dL (0.0-0.2); BILIRUBIN,TOTAL 0.4 mg/dL (0.2-1.0); INR 1.3 (0.91-1.10); PARTIAL THROMBOPLASTIN TIME 39.1 SEC (24.3-34.3); PROTHROMBIN TIME 13.5 SECS (9.2-11.1); TOTAL PROTEIN, SERUM 7.2 g/dL (6.4-8.2)
[2023-11-10 11:29] LABS: BASOPHILS % (AUTO) 0.2 % (0.0-2.0); EOSINOPHILS # (AUTO) 0.1 K/uL (0.0-0.7); EOSINOPHILS % (AUTO) 0.6 % (0.0-6.0); HEMATOCRIT 29 % (39-51); HEMOGLOBIN 9.4 g/dL (13.5-17.5); LYMPHOCYTES # (AUTO) 0.8 K/uL (0.8-4.8); LYMPHOCYTES % (AUTO) 3.9 % (20.0-44.0); MEAN CORPUSCULAR HEMOGLOBIN 30 PG (26.0-33.0); MEAN CORPUSCULAR HGB CONC 33 g/dl (31.0-36.0); MEAN CORPUSCULAR VOLUME 90 fL (80-96); MONOCYTES # (AUTO) 0.6 K/uL (0.1-1.30); NEUTROPHILS # (AUTO) 19.1 K/uL (1.8-8.9); NEUTROPHILS % (AUTO) 92.3 % (43.0-81.0); PLATELET COUNT (AUTO) 178 K/uL (150-450); RED BLOOD CELL COUNT(AUTO) 3.17 MIL/uL (4.5-6.0); RED CELL DISTRIBUTION WIDTH 18.4 % (11.5-15.0); WHITE BLOOD COUNT (AUTO) 20.7 K/uL (4.3-11.0)
[2023-11-10 11:33] LABS: LACTIC ACID 2.2 mmol/L (0.4-2.0)
[2023-11-10] MEDS: PIPERACILLIN /TAZOBACTAM 3.375 G in IV D5W 50 ML IV ONE (13:05)
[2023-11-10] MEDS: VANCOMYCIN 1 GM in IV D5W 250 ML IV ONE (13:40)
[2023-11-10 14:30] VITALS: BP 89/54; TEMP 98; O2SAT 93
[2023-11-10] MEDS ORDERED: ACETAMINOPHEN 650 MG/SUPP.RECT RC PRN (15:00)
[2023-11-10] MEDS ORDERED: IV LR 1000 ML 1,000 ML IV PRN (15:30)
[2023-11-10] MEDS ORDERED: ENOXAPARIN SODIUM 40 MG/0.4 ML DISP.SYRIN SQ SCH (15:30)
[2023-11-10] MEDS ORDERED: ACETAMINOPHEN 325 MG TABLET PO PRN (15:30)
[2023-11-10] MEDS ORDERED: ONDANSETRON HCL/PF 4 MG/2 ML VIAL IVP PRN (15:30)
[2023-11-10 15:59] LABS: ABG BASE EXCESS 0.8 mmol/L; ABG OXYGEN SATURATION 89.8 % (92.0-98.5); ABG PCO2 41.8 mmHg (35.0-45.0); ABG PH 7.405 (7.350-7.450); ABG PO2 61.7 mmHg (75.0-100.0); ABG TOTAL HEMOGLOBIN 10.4 G/dL (13.5-18.0); COHb 0.3 % (0.5-1.5); MetHb 0.1 % (0.0-1.5); O2Hb 89.4 % (94.0-97.0); SITE, ABG Right Radial; VENT MODE, BG 10 LPM SIMPLE MASK
[2023-11-10 16:00] VITALS: BP 94/52; TEMP 98.1; O2SAT 96
[2023-11-10 16:51] LABS: THYROID STIMULATING HORMONE 4.418 uIU/mL (0.358-3.74)
[2023-11-10] MEDS ORDERED: ACETAMINOPHEN 325 MG TABLET MC PRN (17:00)
[2023-11-10] MEDS ORDERED: LACTULOSE 10 G/15 ML UDC (PYXIS) GT PRN (17:00)
[2023-11-10] MEDS ORDERED: HALOPERIDOL 5 MG TABLET GT SCH (17:00)
[2023-11-10] MEDS ORDERED: BISACODYL SUPP (10 MG) 10 MG/SUPP.RECT SUPP.RECT RC PRN (17:00)
[2023-11-10] MEDS ORDERED: APIXABAN 5 MG TABLET GT SCH (17:00)
[2023-11-10] MEDS ORDERED: APIXABAN 5 MG TABLET PO SCH (17:00)
[2023-11-10] MEDS ORDERED: NA PHOS,M-B/NA PHOS,DI-BA 1 EA ENEMA RC PRN (17:00)
[2023-11-10] MEDS ORDERED: ZOLPIDEM TARTRATE 5 MG TABLET GT PRN (17:00)
[2023-11-10] MEDS ORDERED: MAGNESIUM HYDROXIDE 30 ML UDC GT PRN (17:00)
[2023-11-10] MEDS: MEROPENEM 500 MG in IV NS 0.9% 50 ML IV SCH (17:07)
[2023-11-10] MEDS: IV D5/ 0.9% NACL 1,000 ML IV PRN (17:07)
[2023-11-10] MEDS ORDERED: ACETAMINOPHEN 650 MG/20.3 ML UDC GT PRN (17:30)
[2023-11-10] MEDS: DIVALPROEX SODIUM 125 MG CAP.SPRINK GT SCH (17:42)
[2023-11-10] MEDS: ASCORBIC ACID 500 MG TABLET GT SCH (17:43)
[2023-11-10] MEDS: APIXABAN 5 MG TABLET GT SCH (17:43)
[2023-11-10] MEDS: Z GUARD REMEDY 4 OZ OINT TP PRN (17:45)
[2023-11-10] MEDS: JEVITY 1.5 CAL LIQUID 1,000 ML BOTTLE GT SCH (18:12)
[2023-11-10 20:00] VITALS: BP 97/56; TEMP 97.7; O2SAT 96
[2023-11-10] MEDS: ATORVASTATIN 10 MG TABLET GT SCH (21:58)
[2023-11-11] VITALS: BP 130/70; TEMP 98.2; O2SAT 96
[2023-11-11 04:00] VITALS: BP 124/68; TEMP 97.8; O2SAT 98
[2023-11-11 07:50] LABS: BASOPHILS % (AUTO) 0.1 % (0.0-2.0); EOSINOPHILS # (AUTO) 0.5 K/uL (0.0-0.7); EOSINOPHILS % (AUTO) 2.6 % (0.0-6.0); HEMATOCRIT 27 % (39-51); HEMOGLOBIN 8.6 g/dL (13.5-17.5); LYMPHOCYTES # (AUTO) 0.5 K/uL (0.8-4.8); LYMPHOCYTES % (AUTO) 2.7 % (20.0-44.0); MEAN CORPUSCULAR HEMOGLOBIN 29 PG (26.0-33.0); MEAN CORPUSCULAR HGB CONC 32 g/dl (31.0-36.0); MEAN CORPUSCULAR VOLUME 92 fL (80-96); MONOCYTES # (AUTO) 0.4 K/uL (0.1-1.30); MONOCYTES % (AUTO) 2.4 % (2.0-12.0); NEUTROPHILS # (AUTO) 16.3 K/uL (1.8-8.9); NEUTROPHILS % (AUTO) 92.2 % (43.0-81.0); PLATELET COUNT (AUTO) 140 K/uL (150-450); RED BLOOD CELL COUNT(AUTO) 2.96 MIL/uL (4.5-6.0); RED CELL DISTRIBUTION WIDTH 18.8 % (11.5-15.0); WHITE BLOOD COUNT (AUTO) 17.7 K/uL (4.3-11.0)
[2023-11-11 08:00] VITALS: BP 112/69; TEMP 97.5; O2SAT 98
[2023-11-11] MEDS: DOCUSATE SODIUM LIQ 100 MG/10 ML UDC GT SCH (08:38)
[2023-11-11] MEDS: AMLODIPINE BESYLATE 10 MG TABLET GT SCH (08:39)
[2023-11-11] MEDS: LEVOTHYROXINE SODIUM 100 MCG TABLET GT SCH (08:39)
[2023-11-11 08:49] LABS: CALCIUM, SERUM 8.3 mg/dL (8.5-10.1); CREATININE 1.2 mg/dL (0.6-1.3); MAGNESIUM 2.3 mg/dL (1.8-2.4); PHOSPHORUS 3.3 mg/dL (2.5-4.9)
[2023-11-11] MEDS ORDERED: IV D5/0.45 NACL 1,000 ML IV PRN (09:30)
[2023-11-11] MEDS: MEROPENEM 1 G in IV NS 0.9% 100 ML IV SCH (11:25)
[2023-11-11] MEDS: IV D5W 1,000 ML IV PRN (11:26)
[2023-11-11 12:00] VITALS: BP 99/60; TEMP 97.2; O2SAT 97
[2023-11-11] MEDS: VANCOMYCIN HCL 0.75 GM in IV D5W 250 ML IV SCH (12:31)
[2023-11-11] MEDS: JEVITY 1.2 CAL 1,000 ML BOTTLE GT PRN (12:40)
[2023-11-11] MEDS ORDERED: MEROPENEM 1 G in IV NS 0.9% 100 ML IV SCH (13:00)
[2023-11-11] MEDS ORDERED: VANCOMYCIN HCL 0.75 GM in IV D5W 250 ML IV SCH (14:00)
[2023-11-11 15:33] LABS: APPEARANCE,URINE SLIGHTLY CLOUDY (CLEAR); BILIRUBIN,URINE NEGATIVE (NEGATIVE); BLOOD, URINE 3+ Ery/uL (NEGATIVE); COLOR,URINE YELLOW (YELLOW); KETONES,URINE NEGATIVE (NEGATIVE); LEUKOCYTE ESTERASE ,URINE TRACE (NEGATIVE); NITRITE, URINE NEGATIVE (NEGATIVE); PROTEIN,URINE TRACE mg/dl (NEGATIVE); UGLUCOSE NEGATIVE (NEGATIVE)
[2023-11-11 15:40] LABS: RBC,URINE 81-100 /HPF (0-2)
[2023-11-11 15:41] LABS: ADD URINE CULTURE NO; BACTERIA,URINE RARE /HPF (None Seen); SQUAMOUS EPITHELIAL CELL,UR 0-2 /HPF (None Seen)
[2023-11-11 16:00] VITALS: BP 107/61; TEMP 97.3; O2SAT 97
[2023-11-11 20:00] VITALS: BP 97/65; TEMP 97.6; O2SAT 97
[2023-11-12] VITALS: BP 104/72; TEMP 98.6; O2SAT 98
[2023-11-12 04:00] VITALS: BP 107/68; TEMP 98.9; O2SAT 98
[2023-11-12 06:56] LABS: CREATININE 0.8 mg/dL (0.6-1.3)
[2023-11-12 08:00] VITALS: BP 134/64; TEMP 97.2; O2SAT 95
[2023-11-12] MEDS ORDERED: JEVITY 1.2 CAL 1,000 ML BOTTLE GT SCH (11:00)
[2023-11-12 12:00] VITALS: BP 132/59; TEMP 97.6; O2SAT 99
[2023-11-12] MEDS: PANTOPRAZOLE 40 MG/PACK PACK GT SCH (15:59)
[2023-11-12 16:00] VITALS: BP 128/62; TEMP 97.6; O2SAT 98
[2023-11-12] MEDS: PROSOURCE / PROSTAT (PYXIS) 30 ML UDC GT SCH (18:00)
[2023-11-12 20:00] VITALS: BP 116/66; TEMP 97.9; O2SAT 98
[2023-11-13] VITALS: BP 120/70; TEMP 98.2; O2SAT 100
[2023-11-13] MEDS: JEVITY 1.2 CAL 1,000 ML BOTTLE GT SCH (03:34)
[2023-11-13 04:00] VITALS: BP 125/68; TEMP 98.4; O2SAT 98
[2023-11-13 08:00] VITALS: BP 124/66; TEMP 98.6; O2SAT 95
[2023-11-13 08:02] LABS: CALCIUM, SERUM 8.8 mg/dL (8.5-10.1); CREATININE 0.6 mg/dL (0.6-1.3); POTASSIUM 4.4 mmol/L (3.5-5.1)
[2023-11-13] MEDS: ZINC SULFATE 220 MG CAPSULE GT SCH (08:26)
[2023-11-13] MEDS: MEROPENEM 1 G in IV NS 0.9% 100 ML IV SCH (09:33)
[2023-11-13 12:00] VITALS: BP 112/68; TEMP 97.9; O2SAT 94
[2023-11-13 12:06] LABS: BASOPHILS # (AUTO) 0.1 K/uL (0.0-0.2); BASOPHILS % (AUTO) 0.4 % (0.0-2.0); EOSINOPHILS # (AUTO) 1.6 K/uL (0.0-0.7); HEMATOCRIT 25 % (39-51); HEMOGLOBIN 7.9 g/dL (13.5-17.5); LYMPHOCYTES % (AUTO) 6.6 % (20.0-44.0); MEAN CORPUSCULAR HEMOGLOBIN 29 PG (26.0-33.0); MEAN CORPUSCULAR HGB CONC 31 g/dl (31.0-36.0); MEAN CORPUSCULAR VOLUME 93 fL (80-96); MONOCYTES # (AUTO) 0.5 K/uL (0.1-1.30); MONOCYTES % (AUTO) 3.5 % (2.0-12.0); NEUTROPHILS # (AUTO) 11.6 K/uL (1.8-8.9); NEUTROPHILS % (AUTO) 78.5 % (43.0-81.0); PLATELET COUNT (AUTO) 139 K/uL (150-450); RED BLOOD CELL COUNT(AUTO) 2.71 MIL/uL (4.5-6.0); RED CELL DISTRIBUTION WIDTH 19.2 % (11.5-15.0); WHITE BLOOD COUNT (AUTO) 14.7 K/uL (4.3-11.0)
[2023-11-13 16:00] VITALS: BP 128/72; TEMP 97.9; O2SAT 92
[2023-11-13 20:00] VITALS: BP 112/66; TEMP 98; O2SAT 95
[2023-11-14] VITALS: BP 110/64; TEMP 97.9; O2SAT 96
[2023-11-14 04:00] VITALS: BP 117/71; TEMP 98.1; O2SAT 99
[2023-11-14 07:32] LABS: CALCIUM, SERUM 8.9 mg/dL (8.5-10.1); CREATININE 0.6 mg/dL (0.6-1.3); POTASSIUM 3.6 mmol/L (3.5-5.1)
[2023-11-14 07:36] LABS: OCCULT BLOOD STOOL NEGATIVE (NEGATIVE)
[2023-11-14 08:00] VITALS: BP 141/74; TEMP 98.1; O2SAT 98
[2023-11-14 12:00] VITALS: BP 128/67; TEMP 97.8; O2SAT 97
[2023-11-14 16:00] VITALS: BP 125/73; TEMP 97.9; O2SAT 98
[2023-11-14] MEDS ORDERED: IV NS 0.9% 250 ML IV PRN (18:30)
[2023-11-14 20:00] VITALS: BP 124/67; TEMP 97.9; O2SAT 99
[2023-11-15] VITALS: BP 116/57; TEMP 98; O2SAT 99
[2023-11-15 04:00] VITALS: BP 115/59; TEMP 95.5; O2SAT 99
[2023-11-15 07:11] LABS: CALCIUM, SERUM 8.9 mg/dL (8.5-10.1); CREATININE 0.6 mg/dL (0.6-1.3); POTASSIUM 3.6 mmol/L (3.5-5.1)
[2023-11-15 08:00] VITALS: BP 91/50; TEMP 97.1; O2SAT 99
[2023-11-15 09:21] LABS: BASOPHILS % (AUTO) 0.2 % (0.0-2.0); EOSINOPHILS # (AUTO) 1.1 K/uL (0.0-0.7); EOSINOPHILS % (AUTO) 11.4 % (0.0-6.0); HEMATOCRIT 24 % (39-51); HEMOGLOBIN 7.7 g/dL (13.5-17.5); LYMPHOCYTES # (AUTO) 0.7 K/uL (0.8-4.8); LYMPHOCYTES % (AUTO) 7.6 % (20.0-44.0); MEAN CORPUSCULAR HEMOGLOBIN 30 PG (26.0-33.0); MEAN CORPUSCULAR HGB CONC 33 g/dl (31.0-36.0); MEAN CORPUSCULAR VOLUME 91 fL (80-96); MONOCYTES # (AUTO) 0.4 K/uL (0.1-1.30); MONOCYTES % (AUTO) 4.7 % (2.0-12.0); NEUTROPHILS # (AUTO) 7.1 K/uL (1.8-8.9); NEUTROPHILS % (AUTO) 76.1 % (43.0-81.0); PLATELET COUNT (AUTO) 174 K/uL (150-450); RED BLOOD CELL COUNT(AUTO) 2.61 MIL/uL (4.5-6.0); RED CELL DISTRIBUTION WIDTH 18.1 % (11.5-15.0); WHITE BLOOD COUNT (AUTO) 9.4 K/uL (4.3-11.0)
[2023-11-15 12:00] VITALS: BP 104/60; TEMP 97.3; O2SAT 98
[2023-11-15 16:00] VITALS: BP 103/55; TEMP 97.7; O2SAT 95
[2023-11-15] MEDS ORDERED: APIXABAN 5 MG TABLET GT SCH (17:00)
[2023-11-15 20:00] VITALS: BP 102/46; TEMP 97.5; O2SAT 97
[2023-11-16] VITALS: BP 102/57; TEMP 99.3; O2SAT 98
[2023-11-16 04:00] VITALS: BP 103/56; TEMP 98.9; O2SAT 98
[2023-11-16 07:28] LABS: CARBON DIOXIDE 27 mmol/L (21-32); CHLORIDE 103 mmol/L (98-107); CREATININE 0.7 mg/dL (0.6-1.3); GLUCOSE 98 mg/dL (74-106); POTASSIUM 4.2 mmol/L (3.5-5.1); SODIUM SERUM 138 mmol/L (136-145); UREA NITROGEN, BLOOD 19 mg/dL (7-18)
[2023-11-16 08:00] VITALS: BP 108/53; TEMP 97.6; O2SAT 97
[2023-11-16 12:00] VITALS: BP 117/60; TEMP 98.1; O2SAT 98
[2023-11-16 16:00] VITALS: BP 115/72; TEMP 97.9; O2SAT 98
[2023-11-16 20:00] VITALS: BP 108/59; TEMP 97; O2SAT 98
[2023-11-17] VITALS: BP 108/64; TEMP 97.2; O2SAT 99
[2023-11-17 04:00] VITALS: BP 110/62; TEMP 97.4; O2SAT 99
[2023-11-17 08:00] VITALS: BP 115/91; TEMP 97.5; O2SAT 99
[2023-11-17 12:00] VITALS: BP 104/58; TEMP 98.1; O2SAT 95
[2023-11-17 16:00] VITALS: BP 124/58; TEMP 98; O2SAT 97
[2023-11-17 20:00] VITALS: BP 100/58; TEMP 96.8; O2SAT 98
[2023-11-18] VITALS: BP 110/55; TEMP 96.6; O2SAT 100
[2023-11-18 04:00] VITALS: BP 105/57; TEMP 97; O2SAT 100
[2023-11-18 08:00] VITALS: BP 110/73; TEMP 98; O2SAT 100
[2023-11-18 09:11] VITALS: BP 110/64
[2023-12-12] MEDS ORDERED: PALIPERIDONE PALMITATE 156 MG/ML SYRINGE IM SCH (09:00)
== END 2023-11-18 13:38 | DRG 871 ==
LOC: ER 10:21 → TELE1 13:32
PROVIDERS: ADMIT Nurse Practitioner Acute Care; ATTEND Internal Medicine
PROC: 05HY33Z Insertion of Infusion Device into Upper Vein, Percutaneous Approach (ICD-10-PCS; principal; 2023-11-11)
DX: A41.9 Sepsis, unspecified organism (principal); G92.8 Other toxic encephalopathy; J15.69 Pneumonia due to other Gram-negative bacteria; J96.01 Acute respiratory failure with hypoxia; R65.21 Severe sepsis with septic shock; N17.9 Acute kidney failure, unspecified; E44.0 Moderate protein-calorie malnutrition; E87.0 Hyperosmolality and hypernatremia; E87.20 Acidosis, unspecified; N39.0 Urinary tract infection, site not specified; D68.4 Acquired coagulation factor deficiency; I82.412 Acute embolism and thrombosis of left femoral vein; J44.0 Chronic obstructive pulmonary disease with (acute) lower respiratory infection; J44.9 Chronic obstructive pulmonary disease, unspecified; N18.9 Chronic kidney disease, unspecified; I12.9 Hypertensive chronic kidney disease with stage 1 through stage 4 chronic kidney disease, or unspecified chronic kidney disease; D63.8 Anemia in other chronic diseases classified elsewhere; E11.22 Type 2 diabetes mellitus with diabetic chronic kidney disease; E78.5 Hyperlipidemia, unspecified; E86.0 Dehydration; E88.09 Other disorders of plasma-protein metabolism, not elsewhere classified; F20.9 Schizophrenia, unspecified; G40.909 Epilepsy, unspecified, not intractable, without status epilepticus; Z79.01 Long term (current) use of anticoagulants; Z93.1 Gastrostomy status; Z87.01 Personal history of pneumonia (recurrent); E03.9 Hypothyroidism, unspecified; Z20.822 Contact with and (suspected) exposure to COVID-19; R74.01 Elevation of levels of liver transaminase levels; B86 Scabies; R13.10 Dysphagia, unspecified; F09 Unspecified mental disorder due to known physiological condition; I25.10 Atherosclerotic heart disease of native coronary artery without angina pectoris; F03.90 Unspecified dementia, unspecified severity, without behavioral disturbance, psychotic disturbance, mood disturbance, and anxiety; F41.9 Anxiety disorder, unspecified; R21 Rash and other nonspecific skin eruption; L89.616 Pressure-induced deep tissue damage of right heel; Z74.09 Other reduced mobility; D64.9 Anemia, unspecified; Z66 Do not resuscitate; Z68.23 Body mass index [BMI] 23.0-23.9, adult
CPT/HCPCS: 31720; 36410; 36415; 36600; 71045-TC; 80048-TC; 80061-TC; 80076-TC; 80202-TC; 81001; 82272-TC; 83540-TC; 83605-TC; 83735-TC; 84100-TC; 84443-TC; 84484-TC; 85025-TC; 85730-TC; 87040-TC; 87086-TC; 94799-TC; A4223; G0378; J2185; J2543; J3370; J7030; J7042; J7050; J7060; J7070; J7120

== ENCOUNTER 2023-11-27 19:02 | Inpatient (IN) | payer MEDICARE, OTHER ==
[~2023-11-27] VITALS: Ht 182.9 cm; Wt 66.2 kg
[~2023-11-27 19:02] MED LIST changes: -AMIN30LI2 GT; +AMIN30LI66 GT; +APIX5TAB GT; +LACT-96 GT; -LACT100027 GT; +LACT10SO58 GT; +NITR50CA4 PO; -POVI3780 TP; -TRIA15OI2 TP; +ZOLP5TAB2 GT
[2023-11-27 20:16] LABS: BASOPHILS # (AUTO) 0.1 K/uL (0.0-0.2); BASOPHILS % (AUTO) 1.9 % (0.0-2.0); EOSINOPHILS # (AUTO) 0.6 K/uL (0.0-0.7); EOSINOPHILS % (AUTO) 11.9 % (0.0-6.0); HEMATOCRIT 27 % (39-51); HEMOGLOBIN 8.5 g/dL (13.5-17.5); LYMPHOCYTES # (AUTO) 1.1 K/uL (0.8-4.8); LYMPHOCYTES % (AUTO) 23.5 % (20.0-44.0); MEAN CORPUSCULAR HEMOGLOBIN 28 PG (26.0-33.0); MEAN CORPUSCULAR HGB CONC 31 g/dl (31.0-36.0); MEAN CORPUSCULAR VOLUME 91 fL (80-96); MONOCYTES # (AUTO) 0.6 K/uL (0.1-1.30); MONOCYTES % (AUTO) 12.2 % (2.0-12.0); NEUTROPHILS # (AUTO) 2.3 K/uL (1.8-8.9); NEUTROPHILS % (AUTO) 50.5 % (43.0-81.0); PLATELET COUNT (AUTO) 376 K/uL (150-450); RED BLOOD CELL COUNT(AUTO) 3.01 MIL/uL (4.5-6.0); RED CELL DISTRIBUTION WIDTH 19.1 % (11.5-15.0); WHITE BLOOD COUNT (AUTO) 4.6 K/uL (4.3-11.0)
[2023-11-27 20:31] LABS: INR 1.14 (0.91-1.10)
[2023-11-27 20:58] LABS: APPEARANCE,URINE CLEAR (CLEAR); BILIRUBIN,URINE NEGATIVE (NEGATIVE); BLOOD, URINE NEGATIVE Ery/uL (NEGATIVE); COLOR,URINE YELLOW (YELLOW); KETONES,URINE NEGATIVE (NEGATIVE); LEUKOCYTE ESTERASE ,URINE NEGATIVE (NEGATIVE); NITRITE, URINE NEGATIVE (NEGATIVE); PH,URINE 6.5 (5.0-8.0); PROTEIN,URINE 1+ mg/dl (NEGATIVE); UGLUCOSE NEGATIVE (NEGATIVE)
[2023-11-27 21:09] LABS: ADD URINE CULTURE NO; BACTERIA,URINE RARE /HPF (None Seen); COARSE GRANULAR CASTS,URINE RARE /LPF (None Seen); MUCUS,URINE Few /LPF (None Seen); RBC,URINE 0-2 /HPF (0-2); WBC,URINE 0-2 /HPF (0-3)
[2023-11-27 21:22] LABS: CALCIUM, SERUM 9.6 mg/dL (8.5-10.1); CARBON DIOXIDE 28 mmol/L (21-32); CHLORIDE 119 mmol/L (98-107); CREATININE 1.2 mg/dL (0.6-1.3); GLUCOSE 78 mg/dL (74-106); POTASSIUM 3.8 mmol/L (3.5-5.1); SODIUM SERUM 155 mmol/L (136-145); UREA NITROGEN, BLOOD 37 mg/dL (7-18)
[2023-11-27 21:31] LABS: ALANINE AMINOTRANSFERASE 55 U/L (12-78); ALBUMIN 2.2 g/dL (3.4-5.0); ALKALINE PHOSPHATASE 138 U/L (46-116); ASPARTATE AMINOTRANSFERASE 32 U/L (15-37); BILIRUBIN,DIRECT 0.1 mg/dL (0.0-0.2); BILIRUBIN,TOTAL 0.2 mg/dL (0.2-1.0); TOTAL PROTEIN, SERUM 7.3 g/dL (6.4-8.2)
[2023-11-27 21:46] LABS: LACTIC ACID 1.5 mmol/L (0.4-2.0)
[2023-11-27] MEDS ORDERED: PIPERACI/TAZO 3.375GM/D5W 50ML PB IV ONE (21:54)
[2023-11-27] MEDS ORDERED: Z GUARD REMEDY 4 OZ OINT TP PRN (22:00)
[2023-11-27] MEDS ORDERED: ONDANSETRON HCL/PF 4 MG/2 ML VIAL IVP PRN (22:00)
[2023-11-27] MEDS ORDERED: ACETAMINOPHEN 325 MG TABLET PO PRN (22:00)
[2023-11-27] MEDS ORDERED: MORPHINE SULFATE INJ 2 MG/ML DISP.SYRIN IV PRN (22:00)
[2023-11-27] MEDS ORDERED: hydrALAZINE HCL IV 20 MG VIAL IV PRN (22:00)
[2023-11-27] MEDS: PIPERACILLIN /TAZOBACTAM 2.25 G in IV D5W 50 ML IV ONE (22:00)
[2023-11-27] MEDS ORDERED: ALBUTEROL FS 2.5 MG/0.5 ML VIAL.NEB NEB PRN (22:00)
[2023-11-27] MEDS ORDERED: LACTULOSE 10 G/15 ML UDC (PYXIS) GT PRN (22:00)
[2023-11-27] MEDS ORDERED: VANCOMYCIN 500 MG VIAL ONE (22:13)
[2023-11-27 22:20] LABS: ABG BASE EXCESS 3.7 mmol/L; ABG OXYGEN SATURATION 95.8 % (92.0-98.5); ABG PCO2 46.5 mmHg (35.0-45.0); ABG PO2 87.4 mmHg (75.0-100.0); COHb 0.2 % (0.5-1.5); MetHb 0.3 % (0.0-1.5); O2Hb 95.3 % (94.0-97.0); SITE, ABG Right Radial; VENT MODE, BG nrb mask 12LPM
[2023-11-27] MEDS: VANCOMYCIN HCL 1.25 GM in IV D5W 260 ML IV ONE (22:35)
[2023-11-27] MEDS: IV D5/0.45 NACL 1,000 ML IV SCH (23:59)
[2023-11-27] MEDS: ATORVASTATIN 10 MG TABLET GT SCH (23:59)
[2023-11-28] VITALS (16 sets, daily range): BP systolic 91–116; BP diastolic 51–77; TEMP 97.2–98.3; O2SAT 93–100
[2023-11-28] MEDS ORDERED: IPRATROPIUM/ALBUTEROL INHALER IH SCH
[2023-11-28] MEDS ORDERED: CEFEPIME 1 GM VIAL ONE (00:41)
[2023-11-28] MEDS: CEFEPIME HCL 2 GM in IV D5W 100 ML IV SCH ×2 (00:50→17:03)
[2023-11-28] MEDS: IPRATROPIUM NEB FS 0.5 MG/2.5 ML AMPUL.NEB IH SCH (01:31)
[2023-11-28] MEDS: ALBUTEROL FS 2.5 MG/0.5 ML VIAL.NEB NEB SCH (01:32)
[2023-11-28 06:38] LABS: BASOPHILS # (AUTO) 0.1 K/uL (0.0-0.2); EOSINOPHILS # (AUTO) 0.4 K/uL (0.0-0.7); EOSINOPHILS % (AUTO) 6.5 % (0.0-6.0); HEMATOCRIT 26 % (39-51); HEMOGLOBIN 8.2 g/dL (13.5-17.5); LYMPHOCYTES # (AUTO) 0.8 K/uL (0.8-4.8); LYMPHOCYTES % (AUTO) 13.4 % (20.0-44.0); MEAN CORPUSCULAR HEMOGLOBIN 29 PG (26.0-33.0); MEAN CORPUSCULAR HGB CONC 31 g/dl (31.0-36.0); MEAN CORPUSCULAR VOLUME 93 fL (80-96); MONOCYTES # (AUTO) 0.6 K/uL (0.1-1.30); MONOCYTES % (AUTO) 9.6 % (2.0-12.0); NEUTROPHILS # (AUTO) 4.4 K/uL (1.8-8.9); NEUTROPHILS % (AUTO) 69.5 % (43.0-81.0); PLATELET COUNT (AUTO) 291 K/uL (150-450); RED BLOOD CELL COUNT(AUTO) 2.82 MIL/uL (4.5-6.0); WHITE BLOOD COUNT (AUTO) 6.3 K/uL (4.3-11.0)
[2023-11-28] MEDS ORDERED: JEVITY 1.5 CAL LIQUID 1,000 ML BOTTLE GT SCH (07:00)
[2023-11-28] MEDS: IV D5W 1,000 ML IV SCH (07:38)
[2023-11-28] MEDS: DIVALPROEX SODIUM 125 MG CAP.SPRINK GT SCH (08:31)
[2023-11-28] MEDS: POLYETHYLENE GLYCOL 3350 17 GM POWD.PACK PO SCH (08:31)
[2023-11-28] MEDS: BENZTROPINE MESYLATE (1 MG) 1 MG TABLET GT SCH (08:31)
[2023-11-28] MEDS: DOCUSATE SODIUM LIQ 100 MG/10 ML UDC PO SCH (08:31)
[2023-11-28] MEDS: HALOPERIDOL 5 MG TABLET GT SCH (08:32)
[2023-11-28] MEDS: LEVOTHYROXINE SODIUM 100 MCG TABLET GT SCH (08:32)
[2023-11-28] MEDS: AMLODIPINE BESYLATE 10 MG TABLET GT SCH (08:35)
[2023-11-28] MEDS: APIXABAN 5 MG TABLET GT SCH (08:35)
[2023-11-28] MEDS ORDERED: ZINC220C6 GT (08:42)
[2023-11-28] MEDS ORDERED: ACET-868 GT (08:42)
[2023-11-28] MEDS ORDERED: AMIN30LI66 GT (08:42)
[2023-11-28] MEDS ORDERED: FERR325T28 GT (08:42)
[2023-11-28] MEDS ORDERED: APIX5TAB GT (08:42)
[2023-11-28] MEDS ORDERED: PANT40TA49 GT (08:42)
[2023-11-28 08:56] LABS: ALBUMIN 2.1 g/dL (3.4-5.0); BILIRUBIN,TOTAL 0.2 mg/dL (0.2-1.0); CALCIUM, SERUM 9.4 mg/dL (8.5-10.1); CREATININE 1.1 mg/dL (0.6-1.3); MAGNESIUM 2.5 mg/dL (1.8-2.4); PHOSPHORUS 2.9 mg/dL (2.5-4.9); POTASSIUM 3.6 mmol/L (3.5-5.1)
[2023-11-28] MEDS: VANCOMYCIN HCL 750 MG in IV D5W 250 ML IV SCH (11:00)
[2023-11-28] MEDS: JEVITY 1.2 CAL 1,000 ML BOTTLE GT PRN (11:03)
[2023-11-28] MEDS: HYDROCORTISONE 1% CREAM 28.35 GM TUBE TP SCH (12:47)
[2023-11-28] MEDS: THERAHONEY GEL 1.5 OZ TUBE TP SCH (12:47)
[2023-11-28] MEDS: ACETYLCYSTEINE 10% SOLN 400 MG/4 ML VIAL NEB SCH (13:39)
[2023-11-28] MEDS: ASCORBIC ACID 500 MG TABLET GT SCH (17:03)
[2023-11-28] MEDS: PERMETHRIN 5% CRM 60 GM TUBE TP ONE (22:45)
[2023-11-29] VITALS (16 sets, daily range): BP systolic 87–105; BP diastolic 42–65; TEMP 97.1–99.1; O2SAT 94–100
[2023-11-29 07:29] LABS: URINE SODIUM, RANDOM 59 mmol/l (40-220)
[2023-11-29 08:26] LABS: CALCIUM, SERUM 9.3 mg/dL (8.5-10.1); CREATININE 0.8 mg/dL (0.6-1.3); POTASSIUM 3.4 mmol/L (3.5-5.1)
[2023-11-29] MEDS: POTASSIUM CHLORIDE 20 MEQ POWDER PACKET GT ONE (09:28)
[2023-11-30] VITALS (16 sets, daily range): BP systolic 99–140; BP diastolic 48–81; TEMP 97.9–98.4; O2SAT 96–99
[2023-11-30 06:54] LABS: BASOPHILS % (AUTO) 0.5 % (0.0-2.0); EOSINOPHILS # (AUTO) 0.6 K/uL (0.0-0.7); EOSINOPHILS % (AUTO) 7.9 % (0.0-6.0); HEMATOCRIT 24 % (39-51); HEMOGLOBIN 7.8 g/dL (13.5-17.5); LYMPHOCYTES # (AUTO) 0.5 K/uL (0.8-4.8); LYMPHOCYTES % (AUTO) 6.7 % (20.0-44.0); MEAN CORPUSCULAR HEMOGLOBIN 30 PG (26.0-33.0); MEAN CORPUSCULAR HGB CONC 32 g/dl (31.0-36.0); MEAN CORPUSCULAR VOLUME 92 fL (80-96); MONOCYTES # (AUTO) 0.7 K/uL (0.1-1.30); MONOCYTES % (AUTO) 10.5 % (2.0-12.0); NEUTROPHILS # (AUTO) 5.3 K/uL (1.8-8.9); NEUTROPHILS % (AUTO) 74.4 % (43.0-81.0); PLATELET COUNT (AUTO) 165 K/uL (150-450); RED BLOOD CELL COUNT(AUTO) 2.65 MIL/uL (4.5-6.0); RED CELL DISTRIBUTION WIDTH 19.4 % (11.5-15.0)
[2023-11-30 06:56] LABS: CALCIUM, SERUM 9.3 mg/dL (8.5-10.1); CREATININE 0.7 mg/dL (0.6-1.3); MAGNESIUM 2.2 mg/dL (1.8-2.4); PHOSPHORUS 3.5 mg/dL (2.5-4.9); POTASSIUM 4.5 mmol/L (3.5-5.1)
[2023-11-30] MEDS ORDERED: MISCELLANEOUS MED 1 EA EA XX ONE (11:30)
[2023-11-30] MEDS: PERMETHRIN 5% CRM 60 GM TUBE TP ONE (11:57)
[2023-11-30] MEDS: VANCOMYCIN 1 GM in IV D5W 250ml IV SCH (15:00)
[2023-11-30 15:56] LABS: OSMOLALITY,URINE 530 mOS/kg (340-1090)
[2023-12-01] VITALS (16 sets, daily range): BP systolic 91–132; BP diastolic 53–75; TEMP 97.7–98.3; O2SAT 96–99
[2023-12-01 06:46] LABS: BASOPHILS % (AUTO) 0.6 % (0.0-2.0); EOSINOPHILS # (AUTO) 0.7 K/uL (0.0-0.7); EOSINOPHILS % (AUTO) 15.5 % (0.0-6.0); HEMATOCRIT 22 % (39-51); HEMOGLOBIN 7.1 g/dL (13.5-17.5); LYMPHOCYTES # (AUTO) 0.6 K/uL (0.8-4.8); LYMPHOCYTES % (AUTO) 13.1 % (20.0-44.0); MEAN CORPUSCULAR HEMOGLOBIN 29 PG (26.0-33.0); MEAN CORPUSCULAR HGB CONC 32 g/dl (31.0-36.0); MEAN CORPUSCULAR VOLUME 92 fL (80-96); MONOCYTES # (AUTO) 0.4 K/uL (0.1-1.30); MONOCYTES % (AUTO) 8.3 % (2.0-12.0); NEUTROPHILS # (AUTO) 2.9 K/uL (1.8-8.9); NEUTROPHILS % (AUTO) 62.5 % (43.0-81.0); PLATELET COUNT (AUTO) 131 K/uL (150-450); RED BLOOD CELL COUNT(AUTO) 2.42 MIL/uL (4.5-6.0); RED CELL DISTRIBUTION WIDTH 19.8 % (11.5-15.0); WHITE BLOOD COUNT (AUTO) 4.6 K/uL (4.3-11.0)
[2023-12-01 07:02] LABS: CALCIUM, SERUM 9.1 mg/dL (8.5-10.1); CARBON DIOXIDE 27 mmol/L (21-32); CHLORIDE 111 mmol/L (98-107); CREATININE 0.7 mg/dL (0.6-1.3); GLUCOSE 99 mg/dL (74-106); POTASSIUM 4.4 mmol/L (3.5-5.1); SODIUM SERUM 144 mmol/L (136-145); UREA NITROGEN, BLOOD 24 mg/dL (7-18)
[2023-12-01] MEDS ORDERED: LEVO500T90 PO (20:03)
[2023-12-02] VITALS (8 sets, daily range): BP systolic 106–120; BP diastolic 56–60; TEMP 97.1–98; O2SAT 95–100
[2023-12-02 06:43] LABS: BASOPHILS % (AUTO) 0.6 % (0.0-2.0); EOSINOPHILS # (AUTO) 0.7 K/uL (0.0-0.7); EOSINOPHILS % (AUTO) 15.4 % (0.0-6.0); HEMATOCRIT 24 % (39-51); HEMOGLOBIN 7.6 g/dL (13.5-17.5); LYMPHOCYTES # (AUTO) 0.5 K/uL (0.8-4.8); LYMPHOCYTES % (AUTO) 11.4 % (20.0-44.0); MEAN CORPUSCULAR HEMOGLOBIN 29 PG (26.0-33.0); MEAN CORPUSCULAR HGB CONC 32 g/dl (31.0-36.0); MEAN CORPUSCULAR VOLUME 91 fL (80-96); MONOCYTES # (AUTO) 0.4 K/uL (0.1-1.30); MONOCYTES % (AUTO) 8.1 % (2.0-12.0); NEUTROPHILS # (AUTO) 2.8 K/uL (1.8-8.9); NEUTROPHILS % (AUTO) 64.5 % (43.0-81.0); PLATELET COUNT (AUTO) 112 K/uL (150-450); RED BLOOD CELL COUNT(AUTO) 2.59 MIL/uL (4.5-6.0); RED CELL DISTRIBUTION WIDTH 19.8 % (11.5-15.0); WHITE BLOOD COUNT (AUTO) 4.3 K/uL (4.3-11.0)
[2023-12-02 07:06] LABS: CALCIUM, SERUM 9.2 mg/dL (8.5-10.1); CARBON DIOXIDE 27 mmol/L (21-32); CHLORIDE 111 mmol/L (98-107); CREATININE 0.6 mg/dL (0.6-1.3); GLUCOSE 103 mg/dL (74-106); POTASSIUM 5.1 mmol/L (3.5-5.1); SODIUM SERUM 144 mmol/L (136-145); UREA NITROGEN, BLOOD 24 mg/dL (7-18)
[2023-12-02] MEDS ORDERED: LEVOFLOXACIN (250MG) 250 MG TABLET PO SCH (10:30)
[2023-12-02] MEDS: LEVOFLOXACIN (250MG) 250 MG TABLET PO SCH (11:33)
[2023-12-12] MEDS ORDERED: PALIPERIDONE PALMITATE 156 MG/ML SYRINGE IM SCH (09:00)
== END 2023-12-02 14:30 | DRG 177 ==
LOC: ER 19:10 → TELE1 22:24 → TELE-TD 11-28 00:49 → TELE1 11-28 11:44
PROVIDERS: ADMIT Internal Medicine; ATTEND Nurse Practitioner Acute Care
DX: J69.0 Pneumonitis due to inhalation of food and vomit (principal); E43 Unspecified severe protein-calorie malnutrition; J96.21 Acute and chronic respiratory failure with hypoxia; R53.2 Functional quadriplegia; E87.0 Hyperosmolality and hypernatremia; D68.59 Other primary thrombophilia; N39.0 Urinary tract infection, site not specified; G93.49 Other encephalopathy; J44.0 Chronic obstructive pulmonary disease with (acute) lower respiratory infection; J98.11 Atelectasis; F03.918 Unspecified dementia, unspecified severity, with other behavioral disturbance; J15.69 Pneumonia due to other Gram-negative bacteria; G40.909 Epilepsy, unspecified, not intractable, without status epilepticus; E86.0 Dehydration; Z66 Do not resuscitate; I10 Essential (primary) hypertension; E78.5 Hyperlipidemia, unspecified; E03.9 Hypothyroidism, unspecified; D63.8 Anemia in other chronic diseases classified elsewhere; Z79.01 Long term (current) use of anticoagulants; Z79.890 Hormone replacement therapy; Z79.899 Other long term (current) drug therapy; I48.91 Unspecified atrial fibrillation; R13.10 Dysphagia, unspecified; Z93.1 Gastrostomy status; B86 Scabies; E88.09 Other disorders of plasma-protein metabolism, not elsewhere classified; Y95 Nosocomial condition; F20.9 Schizophrenia, unspecified; I25.10 Atherosclerotic heart disease of native coronary artery without angina pectoris; L89.150 Pressure ulcer of sacral region, unstageable; R79.89 Other specified abnormal findings of blood chemistry
CPT/HCPCS: 36415; 36600; 71045-TC; 80048-TC; 80053-TC; 80076-TC; 80202-TC; 81001; 82803-TC; 83605-TC; 83735-TC; 83935-TC; 84100-TC; 84300-TC; 84484-TC; 85025-TC; 85730-TC; 87040-TC; 87081-TC; 87086-TC; 94762-TC; 94799-TC; A4223; G0378; J0692; J2543; J3370; J3371; J3490; J7060; J7070